=== PATIENT | male | born 1945 | race Two or more races ===

== ENCOUNTER → 2024-03-18 | Outpatient (CLI) | payer MEDICARE, MEDICAID, SELFPAY ==
[2024-03-18 09:29] LABS: Basophils % (Auto) 1 % (0-2.5); Eosinophils # (Auto) 0.2 Thou/mm3 (0.0-0.5); Eosinophils % (Auto) 2 % (0-10); Hematocrit 43.7 % (41.0-53.0); Hemoglobin 15.5 g/dL (13.5-16.0); Immature Granulocytes % (Auto) 0 % (0-0); Immature Granulocytes Auto 0.02 Thou/mm3 (0.00-0.00); Lymphocytes # (Auto) 1.6 Thou/mm3 (1.0-4.8); Lymphocytes % (Auto) 25 % (10-50); Mean Corpuscular HGB Conc 35.5 g/dl (31.0-37.0); Mean Corpuscular Hemoglobin 31.8 pg (25.0-35.0); Mean Corpuscular Volume 90 fL (80-100); Monocytes # (Auto) 0.6 Thou/mm3 (0.0-0.8); Monocytes % (Auto) 10 % (0-12); Neutrophils # (Auto) 3.9 Thou/mm3 (1.8-7.7); Neutrophils % (Auto) 62 % (37-80); Nucleated Red Blood Cell % 0 /100 WBC (0); Platelet Count 241 Thou/mm3 (140-440); RDW Standard Deviation 38.5 fL (35.1-43.9); Red Blood Count 4.88 Miln/mm3 (4.50-5.90); White Blood Count 6.3 Thou/mm3 (3.8-10.6)
[2024-03-18 09:35] LABS: Prostate Specific Antigen 4.57 ng/mL (0-4.00)
[2024-03-18 09:40] LABS: Vitamin D 25 Hydroxy Total 23.5 ng/mL (7.3-40.2)
[2024-03-18 09:47] LABS: Glucose Estimated Average 111 mg/dL (80-131); Hemoglobin A1C 5.5 % Hgb (4.8-6.0)
[2024-03-18 09:49] LABS: Alanine Aminotransferase 32 U/L (10-49); Albumin, Serum 4.7 gm/dL (3.4-4.8); Albumin/Globulin Ratio 1.9 (1.2-2.2); Alkaline Phosphatase 99 U/L (46-116); Anion Gap 6 (7-16); Aspartate Amino Transferase < 10 U/L (0-34); BUN/Creatinine Ratio 18 Ratio (12-20); Bilirubin,Total 0.5 mg/dL (0.3-1.2); Blood Urea Nitrogen 14 mg/dL (9-23); Calcium 9.5 mg/dL (8.3-10.6); Calcium (Corrected) 9.5 mg/dL (8.5-10.1); Carbon Dioxide 29.3 mMol/L (20.0-31.0); Chloride 104 mMol/L (98-107); Cholesterol 193 mg/dL (132-200); Creatinine (Component) 0.8 mg/dL (0.6-1.3); Free T4 (Free Thyroxine) 1.08 ng/dL (0.89-1.76); Globulin 2.5 gm/dL (2.3-3.5); Glucose 99 mg/dL (74-106); HDL Cholesterol 48 mg/dL (40-60); LDL Cholesterol,Calculated 112 mg/dL (0-130); Osmolality,Calculated 278 (275-295); Potassium 3.9 mMol/L (3.4-5.1); Sodium 139 mMol/L (136-145); Thyroid Stimulating Hormone 4.83 uIU/mL (0.55-4.78); Total Protein 7.2 gm/dL (5.7-8.2); Triglycerides 166 mg/dL (30-150); eGFR > 60 See Note
== END | disposition home or self-care (01) ==
LOC: COPL 08:32
PROVIDERS: PCP Physician Assistant; Referring Provider Physician Assistant; Visit Provider Physician Assistant
DX: Z12.89 Encounter for screening for malignant neoplasm of other sites (principal); E78.5 Hyperlipidemia, unspecified
CPT/HCPCS: 36415; 80053; 80061; 82306; 83036; 84153; 84439; 84443; 85025

== ENCOUNTER 2024-04-08 09:47 | Outpatient (RCR) | payer MEDICARE, MEDICAID, SELFPAY ==
--- NOTE | 2024-04-08 10:22 | PT.OIERPT ---
PT OP Initial Eval Patient Information Outpatient Physical Therapy Treatment Date: 04/08/24 Visit Reasons: lower back Medical Diagnosis: M54.3 Treatment Dx #1: Difficulty Walking Start of Care: 04/08/24 Date of Onset: 6 months ago Smoking Status Smoking Status: Never smoker Initial Assessment Subjective: Pt is a 78 y/o male reports of right knee pain down to his foot. Pt denies of back pain or numbness down the leg. Pt's most recent xray showed knee replacement, however, unable to provide exact date of procedure. Pt has limitation with standing, walking, chores, balance, and performing recreational activities. Objective: L/S AROM: all motions are WFL Hip PROM: all motions are WFL except IR Right Knee AROM: all motions are WFL with end range pain into fleixon Right Knee MMTs: grossly 4-/5 RIght Hip MMTs: grossly 3/5 Gait Observation: antalgic gait with decrease stride on the right LE Assessment: Pt came into therapy with ICD-10 of sciatica, however, after completion of physical therapy evaluation. Pt's source of pain was localized to the right knee. Pt was evaluted and d/c from care for sciatica. Pt instructed to follow up with PCP for a new PT order for the knee. Pt gave verbal understanding; thank you for your referrals. [facility] Term and [employer] Goals 1) Eval and D/C 2) Follow up with MD for a new PT order for the right knee Procedure Charges OP PT Eval Mod Complex 30 minutes: Yes
== END 2024-04-25 23:59 | disposition home or self-care (01) ==
LOC: CPTX 09:47
PROVIDERS: PCP Student in an Organized Health Care Education/Training Program; Referring Provider Student in an Organized Health Care Education/Training Program; Visit Provider Student in an Organized Health Care Education/Training Program
DX: M25.561 Pain in right knee (principal); R26.2 Difficulty in walking, not elsewhere classified; M54.30 Sciatica, unspecified side
CPT/HCPCS: 97162

== ENCOUNTER 2024-05-26 14:30 | Outpatient (RCR) | payer MEDICARE, MEDICAID, SELFPAY ==
--- NOTE | 2024-04-30 12:50 | PTNOTE_ITS ---
PT OP Initial Eval Patient Information Outpatient Physical Therapy Treatment Date: 04/30/24 Visit Reasons: Pain in RT knee Medical Diagnosis: Right Knee Pain Treatment Dx #1: Right Knee Pain Start of Care: 04/30/24 Date of Onset: 5 year ago Smoking Status Smoking Status: Never smoker Initial Assessment Subjective: Pt is a 78 y/o male reports of chronic right knee pain (09/04) since his fall ~ 5 years ago. 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 Pt has limitation with walking, standing, chores, balance, squatting, stairs, and performing recreational activities. Objective: Right Knee AROM: -5 deg to 130 deg Right Knee MMTs: grossly 4-/5 Right Hip MMTs: grossly 3+/5 SLS: NT Assessment: Pt demonstrate right knee pain with weakness leading to difficulty with ADLs. Pt will attempt physical therapy if pain persist Pt will be refer back to provider for further consultation. [facility] Term and [facility] Goals 1) Increase right knee MMTs grossly to 4/5 in 6 wks to blayne ble to perform squatting activities 2) Decrease knee pain to 2/10 in 6 wks to be able to perform chores 3) Increase right hip MMTs grossly to 4-/5 in 6 wks to be able to walk more than 30 mins 4) Indep with HEP Treatment Plan 1) Manual Therapy 2) Therapeutic Activities 3) Therapeutic Exercises 4) Modalities (ice, heat) 5) Balance Training 6) Gait Training Frequency and Duration: 2 x wk for 6 wks Certification Dates: 04/30/24 to 07/31/24 Procedure Charges OP PT Eval Mod Complex 30 minutes: Yes
--- NOTE | 2024-05-05 14:05 | PT.ODAYNRPT ---
PT Outpatient Daily Note OP Daily Note Outpatient Physical Therapy Treatment Date: 05/05/24 Visit Reasons: Pain in RT knee Subjective: Pt shared that his knee gives out at times and feels unsteady. Objective: Please see flow sheet for ther ex list. Assessment: Pt tolerated interventions with no complaints. Plan: Assess response to treatment. Length of Time (minutes) of Treatment: 30 Minutes Procedure Charges Therapeutic Exercise 30 minutes: Yes
--- NOTE | 2024-05-07 11:59 | PT.ODAYNRPT ---
PT Outpatient Daily Note OP Daily Note Outpatient Physical Therapy Treatment Date: 05/07/24 Visit Reasons: Pain in RT knee Subjective: No new complaints or concerns. Objective: Please see flow sheet for ther ex list. Assessment: Pt instructed on step up exercise, pt can perform with MEDICAL RECORD CONSULTANT. Plan: Continue with POC. Length of Time (minutes) of Treatment: 30 Minutes Procedure Charges Therapeutic Exercise 30 minutes: Yes
--- NOTE | 2024-05-12 15:20 | PT.ODAYNRPT ---
PT Outpatient Daily Note OP Daily Note Outpatient Physical Therapy Treatment Date: 05/12/24 Visit Reasons: Pain in RT knee Subjective: Pt's knee is hurting more. Pt mentioned it feels stiff and painful. Objective: Please see flow chart for list of ther ex performed Assessment: minimal progress with physical therapy due to pain. Pt instructed to complete a few more sessions of physical therapy to help strengthening the knee prior to returning to PCP. Pt gave verbal understanding Plan: Continue with PT Length of Time (minutes) of Treatment: 30 Minutes Procedure Charges Therapeutic Exercise 30 minutes: Yes
--- NOTE | 2024-05-14 14:40 | PT.ODAYNRPT ---
PT Outpatient Daily Note OP Daily Note Outpatient Physical Therapy Treatment Date: 05/14/24 Visit Reasons: Pain in RT knee Subjective: Pt reports R continues to be painful. Objective: Please see flow sheet for ther ex list. Assessment: Interventions completed with minimal pain, continues to ambulate with antalgic gait. Plan: Continue with POC. Length of Time (minutes) of Treatment: 30 Minutes Procedure Charges Therapeutic Exercise 30 minutes: Yes
--- NOTE | 2024-05-19 13:58 | PT.ODAYNRPT ---
PT Outpatient Daily Note OP Daily Note Outpatient Physical Therapy Treatment Date: 05/19/24 Visit Reasons: Pain in RT knee Subjective: Pt's knee feels better, however, still has intermittent pain with standing or walking. Pt will like to continue physical therapy for a few more weeks. Objective: Please see flow chart for list of ther ex performed Assessment: progressing patient to more standing and closed chain exercises with good tolerance Plan: Continue with PT Length of Time (minutes) of Treatment: 30 Minutes Procedure Charges Therapeutic Exercise 30 minutes: Yes
--- NOTE | 2024-05-21 15:47 | PT.ODAYNRPT ---
PT Outpatient Daily Note OP Daily Note Outpatient Physical Therapy Treatment Date: 05/21/24 Visit Reasons: Pain in RT knee Subjective: Pt reports he continues to have knee pain and feels knee vandana on him. As per pt he has been referred to a specialits for his knee. Objective: Please see flow sheet for ther ex list. Assessment: Pt ambulates with cane, antalgic gait and knee buckled once when ambulating in clinic today. Plan: Continue with pOC. Length of Time (minutes) of Treatment: 30 Minutes Procedure Charges Therapeutic Exercise 30 minutes: Yes
--- NOTE | 2024-05-26 14:05 | PT.ODAYNRPT ---
PT Outpatient Daily Note OP Daily Note Outpatient Physical Therapy Treatment Date: 05/26/24 Visit Reasons: Pain in RT knee Subjective: Pt's right knee pain is better, however, is having back pain leading to difficulty with walking today. Pt wants physical therapy to work on the back. Objective: Please see flow chart for list of ther ex performed Assessment: modified exercises to supine position to off load the back to tolerate knee exercises. Post ice helped with pain and soreness Plan: Continue with PT Length of Time (minutes) of Treatment: 30 Minutes Procedure Charges Therapeutic Exercise 30 minutes: Yes
== END 2024-05-26 23:59 | disposition home or self-care (01) ==
LOC: CPTX 14:30
PROVIDERS: PCP Student in an Organized Health Care Education/Training Program; Referring Provider Student in an Organized Health Care Education/Training Program; Visit Provider Student in an Organized Health Care Education/Training Program
DX: M25.561 Pain in right knee (principal); R53.1 Weakness; G89.29 Other chronic pain
CPT/HCPCS: 97110; 97162

== ENCOUNTER 2024-06-12 09:30 | Outpatient (RCR) | payer MEDICARE, MEDICAID, SELFPAY ==
--- NOTE | 2024-06-02 11:11 | PT.ODAYNRPT ---
PT Outpatient Daily Note OP Daily Note Outpatient Physical Therapy Treatment Date: 06/02/24 Visit Reasons: Pain in RT knee Subjective: Pt's right knee is better and notice less pain. Objective: Please see flow chart for list of ther ex performed Assessment: progressing with knee stability with step up exercises with more eccentric control coming down the step Plan: Continue with PT Length of Time (minutes) of Treatment: 30 Minutes Procedure Charges Therapeutic Exercise 30 minutes: Yes
--- NOTE | 2024-06-04 11:31 | PTNOTE_ITS ---
PT Outpatient Daily Note OP Daily Note Outpatient Physical Therapy Treatment Date: 06/04/24 Visit Reasons: Pain in RT knee Subjective: Pt reports R knee is doing a little better, can go short distance without cane. Objective: Please see flow sheet for ther ex list. Assessment: Interventions given alternating sitting and standing to maximize pt participation. Plan: Continue with poC. Length of Time (minutes) of Treatment: 30 Minutes PIPE SUPERVISOR Service Modifier Method I: Divide the number of min of care provided by the PIPE SUPERVISOR/BIG DATA SOFTWARE ENGINEER by the total min of care provided then multiply by 100. If greater than 11 percent modifier is required. Method II: Divide the total time of care provided to patient by 10 (round to the nearest whole number) and add 1 min. to set the minimum time requirement. If treatment total was 60 min., then 10% of 6 min PT CQ modifier applied: CQ Modifier applied Procedure Charges Therapeutic Exercise 30 minutes: Yes
--- NOTE | 2024-06-10 09:57 | PTNOTE_ITS ---
PT Outpatient Daily Note OP Daily Note Outpatient Physical Therapy Treatment Date: 06/10/24 Visit Reasons: Pain in RT knee Subjective: Pt reports R knee continues to be painful and weak, has episodes where knee vandana. Pt uses cane due to fear of falling. Objective: Please see flow sheet for ther ex list. Assessment: Pt continues to ambulate with antalgic gait, pt high fall risk if ambulating without AD due to R knee buckling. Recommended pt to use cane to reduce fall risk, pt agreed. Plan: Continue with pOC. Length of Time (minutes) of Treatment: 30 Minutes NAILING MACHINE OPERATOR Service Modifier Method I: Divide the number of min of care provided by the NAILING MACHINE OPERATOR/INK PRINTER by the total min of care provided then multiply by 100. If greater than 11 percent modifier is required. Method II: Divide the total time of care provided to patient by 10 (round to the nearest whole number) and add 1 min. to set the minimum time requirement. If treatment total was 60 min., then 10% of 6 min PT CQ modifier applied: CQ Modifier applied Procedure Charges Therapeutic Exercise 30 minutes: Yes
--- NOTE | 2024-06-12 10:37 | PT.ODAYNRPT ---
PT Outpatient Daily Note OP Daily Note Outpatient Physical Therapy Treatment Date: 06/12/24 Visit Reasons: Pain in RT knee Subjective: Pt reports r knee is doing ok today, did not bring cane to clinic. Pt and pt mentioned they think he might have a follow up appointment with doctor soon. Objective: Please see flow sheet for ther ex list. Assessment: Pt presents today with decrease c/o pain. Pt usually uses SPC for ambulation due to R knee buckling and unsteady gait. Pt can ambulate but need cane for community distance due to increase pain and knee buckling with prolonged ambulation and prolonged standing. Plan: Pt to follow up with referring doctor for further instructions. Length of Time (minutes) of Treatment: 30 Minutes Procedure Charges Therapeutic Exercise 30 minutes: Yes
--- NOTE | 2024-06-18 13:56 | PT.ODS1RPT ---
PT OP Progress/Discharge Note Date of Service: 06/18/24 Progress Note/DC Note Progress Note/Discharge Note: DC Note Patient Information Visit Reasons: Pain in RT knee Service Discharge Date: 06/18/24 Status Assessment: Pt has been seen for 12 visits (eval + 11 visits). Pt has been contact regarding follow up appts without success. At this time Pt will be d/c from care. Pt did not meet set goals in therapy; thank you for your referrals
== END 2024-06-25 23:59 | disposition home or self-care (01) ==
LOC: CPTX 09:30
PROVIDERS: PCP Student in an Organized Health Care Education/Training Program; Referring Provider Student in an Organized Health Care Education/Training Program; Visit Provider Student in an Organized Health Care Education/Training Program
DX: M25.561 Pain in right knee (principal); R26.2 Difficulty in walking, not elsewhere classified; R53.1 Weakness; R26.89 Other abnormalities of gait and mobility; G89.29 Other chronic pain
CPT/HCPCS: 97110

== ENCOUNTER 2024-07-17 13:09 | Inpatient (IN) | payer MEDICARE, MEDICAID, SELFPAY ==
[2024-07-17] VITALS (13 sets, daily range): BP systolic 95–119; BP diastolic 60–79; PULSE 80–114; RESP 16–25; TEMP 36.4–37.5; O2SAT 96–100; BMI 30.2
--- NOTE | 2024-07-17 13:30 | PD.EDRME ---
Rapid Medical Screening Exam RME Arrival date/time: 07/17/24 13:09 79-year-old male with a history of iron deficiency anemia presents to the emergency room with a chief complaint of weakness and fatigue. Patient was told by his primary care provider to come to the emergency room due to a low hemoglobin level. I have greeted and performed a focused initial assessment of this patient. A comprehensive ED assessment and evaluation of the patient, analysis of all test results, and completion of the medical decision making process will be conducted by additional ED providers. Chief Complaint: Recheck/Abnormal Lab/Rx Time Seen by Provider: 07/17/24 13:13 Vital signs: Vital Signs Temperature 99.5 F 07/17/24 13:21 Pulse Rate 114 H 07/17/24 13:21 Respiratory Rate 18 07/17/24 13:21 Blood Pressure 100/66 07/17/24 13:21 Pulse Oximetry (%) 97 07/17/24 13:21 Oxygen Delivery Method Room Air 07/17/24 13:21 Vital signs reviewed by provider: Yes
[2024-07-17 14:02] LABS: Basophils # (Auto) 0.1 Thou/mm3 (0.0-0.2); Basophils % (Auto) 0 % (0-2.5); Eosinophils % (Auto) 0 % (0-10); Hematocrit 23.1 % (41.0-53.0); Immature Granulocytes % (Auto) 1 % (0-0); Immature Granulocytes Auto 0.08 Thou/mm3 (0.00-0.00); Lymphocytes # (Auto) 1.6 Thou/mm3 (1.0-4.8); Lymphocytes % (Auto) 13 % (10-50); Mean Corpuscular HGB Conc 32.9 g/dl (31.0-37.0); Mean Corpuscular Hemoglobin 28.5 pg (25.0-35.0); Mean Corpuscular Volume 87 fL (80-100); Monocytes # (Auto) 0.9 Thou/mm3 (0.0-0.8); Monocytes % (Auto) 7 % (0-12); Neutrophils # (Auto) 9.9 Thou/mm3 (1.8-7.7); Neutrophils % (Auto) 79 % (37-80); Nucleated Red Blood Cell # 0.03 Thou/mm3 (0.00-0.00); Nucleated Red Blood Cell % 0 /100 WBC (0); Platelet Count 283 Thou/mm3 (140-440); RDW Standard Deviation 56.7 fL (35.1-43.9); Red Blood Count 2.67 Miln/mm3 (4.50-5.90); White Blood Count 12.6 Thou/mm3 (3.8-10.6)
[2024-07-17 14:08] LABS: Hemoglobin 7.6 g/dL (13.5-16.0)
[2024-07-17 14:20] LABS: Alanine Aminotransferase 22 U/L (10-49); Albumin, Serum 3.6 gm/dL (3.4-4.8); Albumin/Globulin Ratio 1.6 (1.2-2.2); Alkaline Phosphatase 76 U/L (46-116); Anion Gap 13 (7-16); Aspartate Amino Transferase 23 U/L (0-34); BUN/Creatinine Ratio 54 Ratio (12-20); Bilirubin,Total 0.3 mg/dL (0.3-1.2); Blood Urea Nitrogen 49 mg/dL (9-23); Calcium 8.5 mg/dL (8.3-10.6); Calcium (Corrected) 8.8 mg/dL (8.5-10.1); Carbon Dioxide 21.9 mMol/L (20.0-31.0); Chloride 103 mMol/L (98-107); Creatinine (Component) 0.9 mg/dL (0.6-1.3); Estimated Creatinine Clearance 54.7 mL/min (>60); Globulin 2.2 gm/dL (2.3-3.5); Glucose 149 mg/dL (74-106); Osmolality,Calculated 291 (275-295); Sodium 138 mMol/L (136-145); Total Protein 5.8 gm/dL (5.7-8.2); eGFR > 60 See Note
[2024-07-17 14:42] LABS: INR 1.1 (0.9-1.3); Partial Thromboplastin Time 22.5 Seconds (22.0-36.0); Prothrombin Time 11.6 Seconds (9.0-12.2)
--- NOTE | 2024-07-17 16:38 | PD.EDRECHK ---
ED Recheck Abnl Lab Rx-RME/HPI General Chief Complaint: Recheck/Abnormal Lab/Rx Stated Complaint: LOW BLOOD LEVELS SENT BY PMD Time Seen by Provider: 07/17/24 13:13 Arrival date/time: 07/17/24 13:09 RME / HPI RME / HPI narrative: 79-year-old male with a history of iron deficiency anemia presents to the emergency room with a chief complaint of weakness and fatigue. Patient was told by his primary care provider to come to the emergency room due to a low hemoglobin level. Patient was noted to have dark tarry stool for the last 24 hours. Denies any abdominal pain. Denies any vomiting blood. Patient is not alcoholic. Patient is not taking any blood thinner or aspirin Related Data Previous Rx's ?Medication ?Instructions ?Recorded pantoprazole 40 mg tablet,delayed 40 mg PO BID #60 tabs 05/05/22 release Allergies Allergy/AdvReac Type Severity Reaction Status Date / Time naproxen Allergy Severe Hives Verified 07/17/24 18:09 Review of Systems Review of Systems Narrative Review of Systems: Review of system reviewed and within normal limits except mentioned in HPI ED Exam Narrative Physical exam: VITAL SIGNS: Reviewed. GENERAL APPEARANCE: Alert and interactive, follows commands, no acute distress, HEAD AND FACE: Non-traumatic. ENT: PERRL, pale conjunctiva, eyelid no trauma, Mucous membrane moist. NECK: Supple, nontender, no nuchal rigidity. CHEST: No tenderness, no crepitus, no paradoxical movement, no retractions. LUNGS: Clear, well ventilated, symmetric, no rales, no wheezing, no ronchi, no stridor, good breath sounds bilaterally. HEART: Regular rate, regular rhythm, no murmur, no gallops. ABDOMEN: Soft, positive bowel sounds, nondistended, no guarding, nontender, no rebound, no masses, RECTAL: Deferred. GENITAL: Deferred. NEUROLOGICAL: Gross motor function intact sensory function intact, Appropriate for age. MUSCULOSKELETAL: low back nontender, full range of motion. EXTREMITIES: Nontender, full range of motion. SKIN: Color pale, dry, no rash, no lacerations, no abrasions, no contusions. LYMPHATICS: Deferred. Course Quality Measures none Orders Category Date Time Status COVID-19 Screening Questionnaire NOW Care 07/17/24 17:07 Active Decision to Admit X1 Care 07/17/24 17:07 Completed Insert IV NOW Care 07/17/24 17:28 Active Occult Blood,Stool (Nursing) ONCE Care 07/17/24 16:40 Active Transfuse,blood/blood products ONCE Care 07/17/24 15:37 Active Consult to Gastroenterology Stat Cons 07/17/24 17:04 Ordered CBC Stat Lab 07/17/24 13:44 Completed CMP [Comprehensive Metabolic Panel] Stat Lab 07/17/24 13:44 Completed PT [Prothrombin Time with INR] Stat Lab 07/17/24 13:44 Completed PTT [Partial Thromboplastin Time] Stat Lab 07/17/24 13:44 Completed Type and Screen Stat Lab 07/17/24 13:44 Results prbc [Red Blood Cells] Stat Lab 07/17/24 13:44 Results Pantoprazole Inj [Protonix Inj] Med 07/17/24 16:38 Discontinued 80 mg IVP X1 ONE Vital Signs Vital signs: Vital Signs Temperature 99.5 F 07/17/24 13:21 Pulse Rate 114 H 07/17/24 13:21 Respiratory Rate 18 07/17/24 13:21 Blood Pressure 100/66 07/17/24 13:21 Pulse Oximetry (%) 97 07/17/24 13:21 Oxygen Delivery Method Room Air 07/17/24 13:21 Recheck / Abnormal Lab / Rx MDM Narrative MDM Narrative:: 79-year-old male with a history of iron deficiency anemia presents to the emergency room with a chief complaint of weakness and fatigue. Patient was told by his primary care provider to come to the emergency room due to a low hemoglobin level. Patient was noted to have dark tarry stool for the last 24 hours. Denies any abdominal pain. Denies any vomiting blood. Patient is not alcoholic. Patient is not taking any blood thinner or aspirin Rectal exam was done by me and black tarry stool noted. Tested positive strongly for occult blood Patient's hemoglobin was noted to be 7.6 hematocrit of 23.1. Patient received 2 units of packed RBC. Patient was also given IV Protonix. Spoke with Dr. Norwood, GI specialist on-call, thank you Dr. 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 How is presenting disease/condition affected by chronic disease/condition?: exacerbated by Evaluation data The following diagnostics were reviewed and interpreted by me:: lab results Lab and/or radiology exams considered but not ordered:: None Interpretation Summary: See results MDM Medications / Prescriptions Medications or Prescriptions considered but not ordered:: None Medication administrations:: Medication Administration History Acetaminophen (Acetaminophen 325 Mg Tablet) 650 mg PO Q6H PRN PRN Reason: Fever >101.5 Stop: 08/16/24 17:40 Acetaminophen (Acetaminophen 500 Mg Tablet) 1,000 mg PO Q6H PRN PRN Reason: PAIN SCALE 1-3 (mild Stop: 08/16/24 17:40 Docusate Sodium (Docusate Sod 100 Mg Capsule) 100 mg PO QDAY [facility]; Protocol Stop: 08/17/24 08:59 Sodium Chloride (Ns) 1,000 mls @ 75 mls/hr IV .[id number] [facility] Stop: 07/18/24 07:16 Last Admin: 07/17/24 18:44 Dose: 75 mls/hr Documented By: ANA LAURA Ondansetron HCl (Ondansetron Inj 2 Mg/Ml Inj 2 Ml) 4 mg IVP Q6H PRN; Protocol PRN Reason: NAUSEA OR VOMITING Stop: 08/16/24 17:40 Pantoprazole Sodium (Pantoprazole Inj 40 Mg Vial) 40 mg IVP BID [facility] Stop: 08/16/24 20:59 Sennosides (Senna Tablet) 1 tab PO QDAY [facility]; Protocol Stop: 08/17/24 08:59 Discontinued Medications Sodium Chloride (Ns) 1,000 mls @ 999 mls/hr IV .Q1H1M ONE Stop: 07/17/24 18:47 Last Admin: 07/17/24 18:43 Dose: 999 mls/hr Documented By: ANA LAURA Infusion: 07/17/24 18:43 Dose: Infused Documented By: ANA LAURA Admin: 07/17/24 18:02 Dose: 999 mls/hr Documented By: ANA LAURA Pantoprazole Sodium (Pantoprazole Inj 40 Mg Vial) 80 mg IVP X1 ONE Stop: 07/17/24 16:39 Last Admin: 07/17/24 17:39 Dose: 80 mg Documented By: ANA LAURA Pantoprazole Sodium (Pantoprazole 40 Mg Tablet) 40 mg PO Q12HR [facility] Stop: 08/16/24 20:59 2 units of packed RBC, IV Protonix Consultations Consultation(s) initiated? (list below): Yes Consultation #1 (Physician, Specialty, Details): Dr. Norwood Diagnosis Recheck Differential Diagnosis: other (Anemia, upper GI bleed iron deficiency anemia anemia of chronic blood loss) Most likely diagnosis given after review of the tests above:: Upper GI bleed anemia Admission Indicated Admission indicated?: indicated Admission Request Was there a request for admission?: Yes Admission Attestation Admission request attestation: Discussed case with [Dr. Mcintyre] from Hospitalist service regarding admission. Discussed patients ED course, exam findings, labs, and radiology results. The Hospitalist [agrees to accept the patient for admission. Disposition Plan Disposition Plan: Admit Discharge Plan Plan Patient Disposition: Admit Acute Care w/in Hospital Discharge Disposition comment: Stable Problem List Clinical Impression: Acute GI bleeding, Anemia
[2024-07-17] MEDS: PANTOPRAZOLE INJ 40 MG VIAL 80 MG IVP (17:39)
--- NOTE | 2024-07-17 17:48 | ESHP_ITS ---
<Statement entered by Brian Garcia MD - 07/27/24 07:23> I reviewed above note and agree with findings and plans. I have also personally examined the patient with medicine team and went over assessment and plan with medical team including internal salesperson and resident physician. Documentation for date of: 07/17/24 HPI History of Present Illness Chief complaint: dizziness, dark stools History of present illness: 79-year-old male with past medical history of hyperlipidemia, arthritis, history of gastric ulcers, history of chronic anemia who presented to the ED from his primary care physician's office due to low hemoglobin. Apparently the patient has been feeling weak dizzy and nauseous for about 2 days, patient also notices stool has become dark and tarry and is currently not on any type of iron supplementation or taking Pepto-Bismol. At the primary care physician's office hemoglobin was about a 9.6 on arrival to the ER hemoglobin shows 7.6. He also not noted feeling short of breath and unable to walk. At baseline patient walks using a cane and is completely independent to perform his ADLs. Patient denies any fever, chills, chest pain, abdominal pain, vomiting, recent travel, sick contacts, urinary or bowel changes. ED course: ED vitals: BP 100/66, HR 114, RR 18, temp 99.5, O2 sat 97% on room air ED labs: Leukocytosis, hemoglobin 7.6, BUN 49, glucose 149. In the ED patient received 80 mg pantoprazole, and 2 units of PRBCs ordered to transfuse. PMHx: As above SxHx: Bilateral knee replacements, appendectomy, some type of throat surgery Social Hx: Denies cigarette use, denies illicit substances including THC, used to be a heavy drinker but quit about 6 years ago. FH X: Unknown Review of Systems Review of Systems Systems Reviewed: All systems reviewed, normal except as documented Narrative Review of Systems: All 12 systems reviewed and found normal unless otherwise specified in the HPI. Exam Vital Signs Temp Pulse Resp BP Pulse Ox O2 Del Method 99.1 F 102 H 16 102/79 99 Room Air 07/17/24 17:45 07/17/24 17:45 07/17/24 17:45 07/17/24 17:45 07/17/24 17:45 07/17/24 17:45 Narrative Exam Physical Exam GENERAL: NAD, AAOx3, slight jaundice HEENT: Dry mucosa. Eyes open, symmetrical, & clear CARDIO: Heart RRR, no obvious murmurs PULM: No noted coughing/dyspnea CTA B/L, no R/W/R GI: Abdomen soft, nondistended, no pain on palpation. BSx4 SKIN/MSK/EXT: No wounds/rashes/edema/amputations, no pain on palpation. Pedal pulses present B/L NEURO: AAOx3, no focal neuro deficits, able to move all 4 extremities Results: Labs 07/17/24 13:44 07/17/24 13:44 Labs: Short CBC 07/17/24 Range/Units 13:44 WBC 12.6 H (3.8-10.6) Thou/mm3 Hgb 7.6 L (13.5-16.0) g/dL Hct 23.1 L (41.0-53.0) % Plt Count 283 (140-440) Thou/mm3 BMP 07/17/24 13:44 Sodium 138 Potassium 4.0 Chloride 103 Carbon Dioxide 21.9 BUN 49 H Creatinine 0.9 Glucose 149 H Calcium 8.5 Liver Function 07/17/24 Range/Units 13:44 Total Bilirubin 0.3 (0.3-1.2) mg/dL AST 23 (0-34) U/L ALT 22 (10-49) U/L Alkaline Phosphatase 76 (46-116) U/L Albumin 3.6 (3.4-4.8) gm/dL Quality Measures Quality Measures none Advance care planning discussed with:: patient Medications Home Medications and Allergies Allergies Allergy/AdvReac Type Severity Reaction Status Date / Time naproxen Allergy Severe Hives Verified 07/17/24 18:09 Visit Medications Acetaminophen (Acetaminophen 325 Mg Tablet) 650 mg PO Q6H PRN PRN Reason: Fever >101.5 Stop: 08/16/24 17:40 Acetaminophen (Acetaminophen 325 Mg Tablet) 1,000 mg PO Q6H PRN PRN Reason: PAIN SCALE 1-3 (mild Stop: 08/16/24 17:40 Docusate Sodium (Docusate Sod 100 Mg Capsule) 100 mg PO QDAY DALJIT; Protocol Stop: 08/17/24 08:59 Ondansetron HCl (Ondansetron Inj 2 Mg/Ml Inj 2 Ml) 4 mg IVP Q6H PRN; Protocol PRN Reason: NAUSEA OR VOMITING Stop: 08/16/24 17:40 Pantoprazole Sodium (Pantoprazole 40 Mg Tablet) 40 mg PO Q12HR DALJIT Stop: 08/16/24 20:59 Sennosides (Senna Tablet) 1 tab PO QDAY DALJIT; Protocol Stop: 08/17/24 08:59 Discontinued Medications Pantoprazole Sodium (Pantoprazole Inj 40 Mg Vial) 80 mg IVP X1 ONE Stop: 07/17/24 16:39 Last Admin: 07/17/24 17:39 Dose: 80 mg Assessment & Plan Plan 79-year-old male with past medical history of hyperlipidemia, arthritis, gastric ulcers, chronic anemia who presented to the ED due to weakness, lightheadedness, shortness of breath, dark tarry stools. Patient will be admitted for GI bleed workup. #Upper GI bleed #Hx of gastric and esophageal ulcers #Hx of anemia presented to the ED from his primary care physician's office due to low hemoglobin. Apparently the patient has been feeling weak dizzy and nauseous for about 2 days, patient also notices stool has become dark and tarry and is currently not on any type of iron supplementation or taking Pepto-Bismol. At the primary care physician's office hemoglobin was about a 9.6 on arrival to the ER hemoglobin shows 7.6. Patient also has hx of prior gastric ulcers >3years ago ? 1 L NS bolus ordered ? IVF's at 75 cc/h X1 bag ? Protonix 40 twice daily ? Transfuse 2 PRBCs ? ordered 2 prbcs ? Monitor H&H every 6 ? GI consulted, appreciate recommendations ? N.p.o. for possible GI intervention #Hyperlipidemia not on any meds at this time - pending med rec Disposition: telemetry, pending GI work up Fluids: NS Feeding: NPO for possible procedure Thrombo prophylaxis: SCDs Gastric Ulcer prophylaxis: Pantoprazole CODE STATUS: Full code Case discussed with my attending Dr. Radha Rose MD PGY-1
[2024-07-17] MEDS: SODIUM CHLORIDE 0.9% 1000 ML 1,000 ML 999 ML IV ×2 (18:02→18:43)
[2024-07-17] MEDS: SODIUM CHLORIDE 0.9% 1000 ML 1,000 ML 75 ML IV (18:44)
--- NOTE | 2024-07-17 19:00 | PC.NURSE ---
Tong Carrier assumes care of patient at this time. Pt tolerating blood transfusion well with no s/s reaction noted at 150ml/hr. Pt is A/O x 4 with no c/o pain
--- NOTE | 2024-07-17 21:00 | PC.NURSE ---
Pt continues to rest with no c/o pain or acute distress reported, bed remains in low position and locked with side rails up x 2, call light in reach of patient
--- NOTE | 2024-07-17 21:20 | PC.NURSE ---
Report given to floor nurse JAHAIRA Lau
--- NOTE | 2024-07-17 22:21 | PD.IMCONS ---
HPI Data of Consult Requesting Physician: Brian Garcia MD Primary Care Provider: Irasema Olmstead PA-C Consult Narrative Reason for consult: Dark melanotic stools History of present illness: 79 years old male presented to the hospital with dark melanotic stools weakness and fatigue On 03/18/2024 his hemoglobin hematocrit 15.5 and 43.7 Today in the emergency room 7.6 and 23.1 with a platelet count of 283,000 cc:: cc: Brian Garcia MD Review of Systems Review of Systems Systems Reviewed: All systems reviewed, normal except as documented Past Medical History Surgical History OTHER SURGICAL HX: As in the history of present illness Meds Home Medications and Allergies Home Medications ?Medication ?Instructions ?Recorded ?Confirmed ?Type diclofenac sodium 1 % topical gel 2 g topical QDAY PRN pain (scale 07/17/24 07/17/24 History score 1-3) Allergies Allergy/AdvReac Type Severity Reaction Status Date / Time naproxen Allergy Severe Hives Verified 07/17/24 18:09 Exam Vital Signs Temp Pulse Resp BP Pulse Ox O2 Del Method 97.6 F 83 20 98/68 96 Room Air 07/17/24 22:15 07/17/24 22:15 07/17/24 22:00 07/17/24 22:15 07/17/24 22:15 07/17/24 22:00 Constitutional Comments: Alert oriented Routine Respiratory Exam Comments: Normal to auscultation Routine Abdominal Exam Comments: Soft nontender Results Labs 07/20/24 05:25 07/20/24 05:25 Labs: Short CBC 07/17/24 Range/Units 13:44 WBC 12.6 H (3.8-10.6) Thou/mm3 Hgb 7.6 L (13.5-16.0) g/dL Hct 23.1 L (41.0-53.0) % Plt Count 283 (140-440) Thou/mm3 BMP 07/17/24 13:44 Sodium 138 Potassium 4.0 Chloride 103 Carbon Dioxide 21.9 BUN 49 H Creatinine 0.9 Glucose 149 H Calcium 8.5 Liver Function 07/17/24 Range/Units 13:44 Total Bilirubin 0.3 (0.3-1.2) mg/dL AST 23 (0-34) U/L ALT 22 (10-49) U/L Alkaline Phosphatase 76 (46-116) U/L Albumin 3.6 (3.4-4.8) gm/dL Assessment and Plan Additional Assessment & Plan Additional Plan: Melena Acute posthemorrhagic anemia Plan Clear liquid diet till midnight tonight then n.p.o. Consent obtained for fiberoptic esophagogastroduodenoscopy with possible biopsy possible therapeutic intervention under intravenous moderate sedation scheduled for tomorrow IV Protonix Serial CBC Transfuse PRBC if the hemoglobin drops below 7 g Thank you very much for the opportunity to participate in the care of this patient
[2024-07-17] MEDS: PANTOPRAZOLE INJ 40 MG VIAL IVP (22:37)
[2024-07-18] VITALS (20 sets, daily range): BP systolic 93–128; BP diastolic 58–79; PULSE 52–89; RESP 9–97; TEMP 36.2–37.3; O2SAT 95–100; BMI 26.6
[2024-07-18 06:17] LABS: Basophils # (Auto) 0.1 Thou/mm3 (0.0-0.2); Basophils % (Auto) 1 % (0-2.5); Eosinophils # (Auto) 0.2 Thou/mm3 (0.0-0.5); Eosinophils % (Auto) 2 % (0-10); Hematocrit 25.6 % (41.0-53.0); Immature Granulocytes % (Auto) 1 % (0-0); Immature Granulocytes Auto 0.06 Thou/mm3 (0.00-0.00); Lymphocytes # (Auto) 2.1 Thou/mm3 (1.0-4.8); Lymphocytes % (Auto) 20 % (10-50); Mean Corpuscular HGB Conc 33.2 g/dl (31.0-37.0); Mean Corpuscular Hemoglobin 29.2 pg (25.0-35.0); Mean Corpuscular Volume 88 fL (80-100); Monocytes # (Auto) 0.9 Thou/mm3 (0.0-0.8); Monocytes % (Auto) 9 % (0-12); Neutrophils % (Auto) 68 % (37-80); Nucleated Red Blood Cell # 0.02 Thou/mm3 (0.00-0.00); Nucleated Red Blood Cell % 0 /100 WBC (0); Platelet Count 198 Thou/mm3 (140-440); RDW Standard Deviation 56.1 fL (35.1-43.9); Red Blood Count 2.91 Miln/mm3 (4.50-5.90); White Blood Count 10.2 Thou/mm3 (3.8-10.6)
[2024-07-18 06:26] LABS: Hemoglobin 8.5 g/dL (13.5-16.0)
[2024-07-18 06:46] LABS: Alanine Aminotransferase 15 U/L (10-49); Albumin, Serum 3.1 gm/dL (3.4-4.8); Albumin/Globulin Ratio 1.7 (1.2-2.2); Alkaline Phosphatase 61 U/L (46-116); Anion Gap 9 (7-16); Aspartate Amino Transferase 18 U/L (0-34); BUN/Creatinine Ratio 44 Ratio (12-20); Bilirubin,Total 0.4 mg/dL (0.3-1.2); Blood Urea Nitrogen 31 mg/dL (9-23); Calcium 7.5 mg/dL (8.3-10.6); Calcium (Corrected) 8.2 mg/dL (8.5-10.1); Carbon Dioxide 23.5 mMol/L (20.0-31.0); Chloride 112 mMol/L (98-107); Creatinine (Component) 0.7 mg/dL (0.6-1.3); Estimated Creatinine Clearance 66.3 mL/min (>60); Globulin 1.8 gm/dL (2.3-3.5); Glucose 100 mg/dL (74-106); Magnesium 1.9 mg/dL (1.6-2.6); Osmolality,Calculated 293 (275-295); Phosphorous 2.3 mg/dL (2.4-5.1); Potassium 3.7 mMol/L (3.4-5.1); Sodium 144 mMol/L (136-145); Total Protein 4.9 gm/dL (5.7-8.2); eGFR > 60 See Note
[2024-07-18] MEDS: SENNA TABLET 1 TAB PO (08:49)
[2024-07-18] MEDS: PANTOPRAZOLE INJ 40 MG VIAL IVP ×2 (08:49→20:41)
[2024-07-18] MEDS: DOCUSATE SOD 100 MG CAPSULE PO (08:49)
--- NOTE | 2024-07-18 10:33 | PC.SS ---
Initial assessment: patient is a 79 year old male admitted for dark tarry stools. Patient is Jordanian speaking. Patient lives at home with spouse and family. Patient confirmed demographic information. Patient requires some assistance with ADL's. Patient denies use of home DME. Patient PCP is Irasema Olmstead. Patient plans to return home upon discharge, family able to transport the patient home. Family and patient requesting a rollator walker, no preferred DME vendor. Patient's son Kalin To and patient daughter in law Debora contact number is for reference. D/c plan: Home Next of kin: daughterLeda
--- NOTE | 2024-07-18 12:29 | PC.SS ---
Patient is requesting a rollator walker for home use. Walkers The diagnosis creates mobility limitation that significantly impairs ability to participate in the patients activities of daily living either in their entirety, or in a reasonable time frame. Also the patient is able to safely use the walker and the patient?s mobility is sufficiently resolved with the use of the walker and cane has been ruled out.
--- NOTE | 2024-07-18 13:47 | ESPR_ITS ---
Documentation for date of: 07/18/24 Subjective Subjective Interval history: Patient seen today at the bedside found awake, alert, orientedx3. No overnight events reported. States lightheadedness has improved as well as dizziness. Vitals and labs reviewed. Hemoglobin still low will transfuse 1 PRBC. Patient is pending EGD with GI specialist. Exam Vital Signs Temp Pulse Resp BP Pulse Ox O2 Del Method 97.9 F 78 18 93/64 95 Room Air 07/18/24 12:00 07/18/24 12:00 07/18/24 12:00 07/18/24 12:00 07/18/24 12:00 07/18/24 12:00 Narrative Exam Physical Exam GENERAL: NAD, AAOx3, slight jaundice HEENT: Dry mucosa. Eyes open, symmetrical, & clear CARDIO: Heart RRR, no obvious murmurs PULM: No noted coughing/dyspnea CTA B/L, no R/W/R GI: Abdomen soft, nondistended, no pain on palpation. BSx4 SKIN/MSK/EXT: No wounds/rashes/edema/amputations, no pain on palpation. Pedal pulses present B/L NEURO: AAOx3, no focal neuro deficits, able to move all 4 extremities Objective Labs 07/19/24 05:10 07/19/24 05:10 Labs: Laboratory Results - last 24 hr 07/17/24 07/18/24 13:44 05:20 WBC 12.6 H 10.2 RBC 2.67 L 2.91 L Hgb 7.6 L 8.5 L Hct 23.1 L 25.6 L MCV 87 88 MCH 28.5 29.2 MCHC 32.9 33.2 RDW Std Deviation 56.7 H 56.1 H Plt Count 283 198 D Neut % (Auto) 79 68 Lymph % (Auto) 13 20 [place] % (Auto) 7 9 Eos % (Auto) 0 2 Baso % (Auto) 0 1 Neut # (Auto) 9.9 H 7.0 Lymph # (Auto) 1.6 2.1 [place] # (Auto) 0.9 H 0.9 H Eos # (Auto) 0.0 0.2 Baso # (Auto) 0.1 0.1 Immature Gran # (Auto) 0.08 H 0.06 H Absolute Nucleated RBC 0.03 H 0.02 H Immature Gran % 1 H 1 H Nucleated RBC % 0 0 PT 11.6 INR 1.1 APTT 22.5 Sodium 138 144 Potassium 4.0 3.7 Chloride 103 112 H Carbon Dioxide 21.9 23.5 Anion Gap 13 9 BUN 49 H 31 H Creatinine 0.9 0.7 Estim Creat Clear Calc 54.7 L 66.3 eGFR > 60 > 60 BUN/Creatinine Ratio 54 H 44 H Glucose 149 H 100 Calculated Osmolality 291 293 Calcium 8.5 7.5 L Corrected Calcium 8.8 8.2 L Phosphorus 2.3 L Magnesium 1.9 Total Bilirubin 0.3 0.4 AST 23 18 ALT 22 15 Alkaline Phosphatase 76 61 Total Protein 5.8 4.9 L Albumin 3.6 3.1 L D Globulin 2.2 L 1.8 L Albumin/Globulin Ratio 1.6 1.7 Blood Type A Positive Antibody Screen NEGATIVE Crossmatch See Detail Blood Bank Wristband ID Yes Quality Measures Quality Measures none Advance care planning discussed with:: patient Assessment & Plan Assessment Current Active Medications: Generic Name Dose Route Start Last Admin Trade Name Freq PRN Reason Stop Dose Admin Acetaminophen 650 mg 07/17/24 17:41 Acetaminophen 325 Mg Tablet PO 08/16/24 17:40 Q6H PRN Fever >101.5 Acetaminophen 1,000 mg 07/17/24 17:41 Acetaminophen 500 Mg Tablet PO 08/16/24 17:40 Q6H PRN PAIN SCALE 1-3 (mild Docusate Sodium 100 mg 07/18/24 09:00 07/18/24 08:49 Docusate Sod 100 Mg Capsule PO 08/17/24 08:59 100 mg QDAY DALJIT Administration Protocol Ondansetron HCl 4 mg 07/17/24 17:41 Ondansetron Inj 2 Mg/Ml Inj 2 Ml IVP 08/16/24 17:40 Q6H PRN NAUSEA OR VOMITING Protocol Pantoprazole Sodium 40 mg 07/17/24 21:00 07/18/24 08:49 Pantoprazole Inj 40 Mg Vial IVP 08/16/24 20:59 40 mg BID DALJIT Administration Sennosides 1 tab 07/18/24 09:00 07/18/24 08:49 Senna Tablet PO 08/17/24 08:59 1 tab QDAY DALJIT Administration Protocol Plan 79-year-old male with past medical history of hyperlipidemia, arthritis, gastric ulcers, chronic anemia who presented to the ED due to weakness, lightheadedness, shortness of breath, dark tarry stools. Patient will be admitted for GI bleed workup. #Upper GI bleed #Hx of gastric and esophageal ulcers #Hx of anemia presented to the ED from his primary care physician's office due to low hemoglobin. Apparently the patient has been feeling weak dizzy and nauseous for about 2 days, patient also notices stool has become dark and tarry and is currently not on any type of iron supplementation or taking Pepto-Bismol. At the primary care physician's office hemoglobin was about a 9.6 on arrival to the ER hemoglobin shows 7.6. Patient also has hx of prior gastric ulcers >3years ago 2pRBCs transfused ? Protonix 40 twice daily ? pending EGD ? Transfuse 1 PRBCs ? Monitor H&H ? GI consulted, appreciate recommendations ? N.p.o. for possible GI intervention #Hyperlipidemia not on any meds at this time - pending med rec Disposition: telemetry, pending GI work up Fluids: NS Feeding: NPO for possible procedure Thrombo prophylaxis: SCDs Gastric Ulcer prophylaxis: Pantoprazole CODE STATUS: Full code Case discussed with my attending Dr. Ida Rose MD PGY-1 Attending Provider Attestation/Addendum I, Valerie Prieto, , attest that I was physically present for the salvador portions of the service and evaluated the patient with the resident and I reviewed and discussed the case with the resident and agree with the resident's findings and plans of care as documented above Patient seen and evaluated this AM. and son are at bedside. Patient states he is feeling better today and denies any further episodes of lightheadedness or shortness of breath. Patient does appear pale. He denies taking any iron supplements or pepto bismol at home. He also denies any fevers, chills, nausea, vomiting or abdominal pain. He states he has not had any BMs here in the hospital. Patient is scheduled for endoscopy this afternoon. He received 2 units of PRBCs overnight with only a 0.9 increase in H/H. Will transfuse another unit of pRBCs due to concern for active bleeding and BP remains low-normal. Will continue to monitor volume status closely due to transfusions. Lungs are otherwise clear to auscultation bilaterally. No peripheral edema noted
--- NOTE | 2024-07-18 14:31 | PC.SS ---
Addendum entered by BERNARDINO Mcknight 07/18/24 16:25: Notified patient's daughter Leda via phone call that the DME was delivered as the patient is out of room for a procedure. Addendum entered by BERNARDINO Mcknight 07/18/24 16:23: DME delivered at bedside by [facility] staff. Addendum entered by BERNARDINO Mcknight 07/18/24 14:42: Rounding note: EGD pending. Original Note: DME inquiry for rollator walker sent via [employer]. Pending response.
--- NOTE | 2024-07-18 16:45 | SUR.PHASEI ---
1645: received pt from OR via [employer]. received report from JAHAIRA Sheth. pt sleepy but arousable when called his name. no s/s of resp. distress or discomfort. no s/s pain or discomfort.
--- NOTE | 2024-07-18 17:06 | SUR.PHASEI ---
1706: given report to JAHAIRA Raphael.
--- NOTE | 2024-07-18 17:15 | SUR.PHASEI ---
1715: pt tgransfer back to room 268. pt alert and oriented. no s/s of resp. distress or discomfort. no s/s pian or discomfort.
[2024-07-18] MEDS: NA SU/NAHCO3/KC/PEG (Golytely) 4,000 ML BTL 4000 ML PO (18:01)
[2024-07-19] VITALS (21 sets, daily range): BP systolic 86–120; BP diastolic 55–83; PULSE 58–88; RESP 12–98; TEMP 36.5–37.1; O2SAT 95–100; BMI 27.1; BMI 27.3
[2024-07-19 06:01] LABS: Basophils % (Auto) 1 % (0-2.5); Eosinophils # (Auto) 0.2 Thou/mm3 (0.0-0.5); Eosinophils % (Auto) 2 % (0-10); Hematocrit 25.1 % (41.0-53.0); Immature Granulocytes % (Auto) 0 % (0-0); Immature Granulocytes Auto 0.03 Thou/mm3 (0.00-0.00); Lymphocytes # (Auto) 1.4 Thou/mm3 (1.0-4.8); Lymphocytes % (Auto) 19 % (10-50); Mean Corpuscular HGB Conc 33.5 g/dl (31.0-37.0); Mean Corpuscular Hemoglobin 29.1 pg (25.0-35.0); Mean Corpuscular Volume 87 fL (80-100); Monocytes # (Auto) 0.6 Thou/mm3 (0.0-0.8); Monocytes % (Auto) 8 % (0-12); Neutrophils # (Auto) 5.2 Thou/mm3 (1.8-7.7); Neutrophils % (Auto) 70 % (37-80); Nucleated Red Blood Cell % 0 /100 WBC (0); Platelet Count 211 Thou/mm3 (140-440); RDW Standard Deviation 56.9 fL (35.1-43.9); Red Blood Count 2.89 Miln/mm3 (4.50-5.90); White Blood Count 7.4 Thou/mm3 (3.8-10.6)
[2024-07-19 06:09] LABS: Hemoglobin 8.4 g/dL (13.5-16.0)
[2024-07-19 06:38] LABS: Alanine Aminotransferase 25 U/L (10-49); Albumin, Serum 3.4 gm/dL (3.4-4.8); Albumin/Globulin Ratio 1.8 (1.2-2.2); Alkaline Phosphatase 66 U/L (46-116); Anion Gap 9 (7-16); Aspartate Amino Transferase 28 U/L (0-34); BUN/Creatinine Ratio 20 Ratio (12-20); Bilirubin,Total 0.5 mg/dL (0.3-1.2); Blood Urea Nitrogen 14 mg/dL (9-23); Calcium 8.1 mg/dL (8.3-10.6); Calcium (Corrected) 8.6 mg/dL (8.5-10.1); Carbon Dioxide 27.9 mMol/L (20.0-31.0); Chloride 108 mMol/L (98-107); Creatinine (Component) 0.7 mg/dL (0.6-1.3); Estimated Creatinine Clearance 66.3 mL/min (>60); Globulin 1.9 gm/dL (2.3-3.5); Glucose 101 mg/dL (74-106); Magnesium 1.8 mg/dL (1.6-2.6); Osmolality,Calculated 289 (275-295); Potassium 3.7 mMol/L (3.4-5.1); Sodium 145 mMol/L (136-145); Total Protein 5.3 gm/dL (5.7-8.2); eGFR > 60 See Note
[2024-07-19] MEDS: PANTOPRAZOLE INJ 40 MG VIAL IVP ×2 (09:48→20:07)
[2024-07-19] MEDS: VIT B12/Vit C/FA (Nephrovite) TABLET 1 TAB PO (10:02)
--- NOTE | 2024-07-19 11:36 | ESPR_ITS ---
Documentation for date of: 07/19/24 Subjective Subjective Interval history: Patient seen today at the bedside found awake, alert, orientedx3. No overnight events reported. No active complaints at this time. State dizziness and lightheadedness has improved. Vitals and labs reviewed. Hemoglobin has remained stable at 8.4 today. EGD was done and showed esophagitis and gastritis. GI recommended GoLytely prep for colonoscopy. Will continue to monitor at this time. Exam Vital Signs Temp Pulse Resp BP Pulse Ox O2 Del Method O2 Flow Rate 98.5 F 84 20 117/64 96 Room Air 3 07/19/24 08:00 07/19/24 08:00 07/19/24 08:00 07/19/24 08:00 07/19/24 08:00 07/19/24 08:00 07/18/24 16:40 Narrative Exam Physical Exam GENERAL: NAD, AAOx3 HEENT: moist mucosa. Eyes open, symmetrical, & clear CARDIO: Heart RRR, no obvious murmurs PULM: No noted coughing/dyspnea CTA B/L, no R/W/R GI: Abdomen soft, nondistended, no pain on palpation. BSx4 SKIN/MSK/EXT: No wounds/rashes/edema/amputations, no pain on palpation. Pedal pulses present B/L NEURO: AAOx3, no focal neuro deficits, able to move all 4 extremities Objective Labs 07/20/24 05:25 07/20/24 05:25 Labs: Laboratory Results - last 24 hr 07/19/24 05:10 WBC 7.4 RBC 2.89 L Hgb 8.4 L Hct 25.1 L MCV 87 MCH 29.1 MCHC 33.5 RDW Std Deviation 56.9 H Plt Count 211 Neut % (Auto) 70 Lymph % (Auto) 19 [place] % (Auto) 8 Eos % (Auto) 2 Baso % (Auto) 1 Neut # (Auto) 5.2 Lymph # (Auto) 1.4 [place] # (Auto) 0.6 Eos # (Auto) 0.2 Baso # (Auto) 0.0 Immature Gran # (Auto) 0.03 H Absolute Nucleated RBC 0.00 Immature Gran % 0 Nucleated RBC % 0 Sodium 145 Potassium 3.7 Chloride 108 H Carbon Dioxide 27.9 Anion Gap 9 BUN 14 Creatinine 0.7 Estim Creat Clear Calc 66.3 eGFR > 60 BUN/Creatinine Ratio 20 Glucose 101 Calculated Osmolality 289 Calcium 8.1 L Corrected Calcium 8.6 Phosphorus 3.0 Magnesium 1.8 Total Bilirubin 0.5 AST 28 ALT 25 Alkaline Phosphatase 66 Total Protein 5.3 L Albumin 3.4 Globulin 1.9 L Albumin/Globulin Ratio 1.8 Quality Measures Quality Measures none Advance care planning discussed with:: patient Assessment & Plan Assessment Current Active Medications: Generic Name Dose Route Start Last Admin Trade Name Freq PRN Reason Stop Dose Admin Acetaminophen 650 mg 07/17/24 17:41 Acetaminophen 325 Mg Tablet PO 08/16/24 17:40 Q6H PRN Fever >101.5 Acetaminophen 1,000 mg 07/17/24 17:41 Acetaminophen 500 Mg Tablet PO 08/16/24 17:40 Q6H PRN PAIN SCALE 1-3 (mild Docusate Sodium 100 mg 07/18/24 09:00 07/19/24 09:50 Docusate Sod 100 Mg Capsule PO 08/17/24 08:59 Not Given QDAY [facility] Protocol Ondansetron HCl 4 mg 07/17/24 17:41 Ondansetron Inj 2 Mg/Ml Inj 2 Ml IVP 08/16/24 17:40 Q6H PRN NAUSEA OR VOMITING Protocol Pantoprazole Sodium 40 mg 07/17/24 21:00 07/19/24 09:48 Pantoprazole Inj 40 Mg Vial IVP 08/16/24 20:59 40 mg BID DALJIT Administration Sennosides 1 tab 07/18/24 09:00 07/19/24 09:50 Senna Tablet PO 08/17/24 08:59 Not Given QDAY [facility] Protocol Vitamin B Complex/Vit C/Folic Acid 1 tab 07/19/24 10:00 07/19/24 10:02 Vit B12/Vit C/Fa (Nephrovite) Tablet PO 08/18/24 09:59 1 tab QDAY DALJIT Administration Plan 79-year-old male with past medical history of hyperlipidemia, arthritis, gastric ulcers, chronic anemia who presented to the ED due to weakness, lightheadedness, shortness of breath, dark tarry stools. Patient will be admitted for GI bleed workup. #Upper GI bleed #Hx of gastric and esophageal ulcers #Hx of anemia presented to the ED from his primary care physician's office due to low hemoglobin. Apparently the patient has been feeling weak dizzy and nauseous for about 2 days, patient also notices stool has become dark and tarry and is currently not on any type of iron supplementation or taking Pepto-Bismol. At the primary care physician's office hemoglobin was about a 9.6 on arrival to the ER hemoglobin shows 7.6. Patient also has hx of prior gastric ulcers >3years ago 3pRBCs transfused EGD showed gastritis and esophagitis ? Protonix 40 twice daily ? pending colonoscopy ? GI consulted, appreciate recommendations #Hyperlipidemia not on any meds at this time Disposition: telemetry, pending GI work up Fluids: NS Feeding: NPO for possible procedure Thrombo prophylaxis: SCDs Gastric Ulcer prophylaxis: Pantoprazole CODE STATUS: Full code Case discussed with my attending Dr. Ida Rose MD PGY-1 Attending Provider Attestation/Addendum IValerie DO, attest that I was physically present for the salvador portions of the service and evaluated the patient with the resident and I reviewed and discussed the case with the resident and agree with the resident's findings and plans of care as documented above Patient seen and eval this a.m.Endoscopy was done yesterday showing esophagitis and gastritis, as well as large hiatal hernia. Patient is scheduled for colonoscopy as a source of anemia remains obscure. Patient continues to be on bowel prep. Will follow-up with colonoscopy results. Hemoglobin appears unchanged. Patient is otherwise hemodynamically stable at this time.
[2024-07-19] MEDS: ACETAMINOPHEN 500 MG TABLET 1000 MG PO (20:07)
[2024-07-20] VITALS (14 sets, daily range): BP systolic 92–121; BP diastolic 52–79; PULSE 48–110; RESP 13–95; TEMP 36.4–37.2; O2SAT 93–98
[2024-07-20 06:00] LABS: Basophils % (Auto) 1 % (0-2.5); Eosinophils # (Auto) 0.2 Thou/mm3 (0.0-0.5); Eosinophils % (Auto) 3 % (0-10); Hematocrit 23.6 % (41.0-53.0); Immature Granulocytes % (Auto) 0 % (0-0); Immature Granulocytes Auto 0.01 Thou/mm3 (0.00-0.00); Lymphocytes # (Auto) 1.2 Thou/mm3 (1.0-4.8); Lymphocytes % (Auto) 24 % (10-50); Mean Corpuscular HGB Conc 33.1 g/dl (31.0-37.0); Mean Corpuscular Hemoglobin 29.1 pg (25.0-35.0); Mean Corpuscular Volume 88 fL (80-100); Monocytes # (Auto) 0.5 Thou/mm3 (0.0-0.8); Monocytes % (Auto) 10 % (0-12); Neutrophils # (Auto) 3.1 Thou/mm3 (1.8-7.7); Neutrophils % (Auto) 62 % (37-80); Nucleated Red Blood Cell % 0 /100 WBC (0); Platelet Count 249 Thou/mm3 (140-440); RDW Standard Deviation 57.2 fL (35.1-43.9); Red Blood Count 2.68 Miln/mm3 (4.50-5.90); White Blood Count 4.9 Thou/mm3 (3.8-10.6)
[2024-07-20 06:01] LABS: Hemoglobin 7.8 g/dL (13.5-16.0)
[2024-07-20 06:18] LABS: Alanine Aminotransferase 24 U/L (10-49); Albumin, Serum 3.3 gm/dL (3.4-4.8); Albumin/Globulin Ratio 1.8 (1.2-2.2); Alkaline Phosphatase 68 U/L (46-116); Anion Gap 8 (7-16); Aspartate Amino Transferase 23 U/L (0-34); BUN/Creatinine Ratio 18 Ratio (12-20); Bilirubin,Total 0.5 mg/dL (0.3-1.2); Blood Urea Nitrogen 11 mg/dL (9-23); Calcium 7.9 mg/dL (8.3-10.6); Calcium (Corrected) 8.5 mg/dL (8.5-10.1); Carbon Dioxide 28.5 mMol/L (20.0-31.0); Chloride 108 mMol/L (98-107); Creatinine (Component) 0.6 mg/dL (0.6-1.3); Estimated Creatinine Clearance 80.4 mL/min (>60); Globulin 1.8 gm/dL (2.3-3.5); Glucose 98 mg/dL (74-106); Magnesium 1.8 mg/dL (1.6-2.6); Osmolality,Calculated 286 (275-295); Phosphorous 3.9 mg/dL (2.4-5.1); Potassium 3.4 mMol/L (3.4-5.1); Sodium 144 mMol/L (136-145); Total Protein 5.1 gm/dL (5.7-8.2); eGFR > 60 See Note
[2024-07-20] MEDS: DOCUSATE SOD 100 MG CAPSULE PO (08:23)
[2024-07-20] MEDS: PANTOPRAZOLE INJ 40 MG VIAL IVP ×2 (08:23→20:05)
[2024-07-20] MEDS: SENNA TABLET 1 TAB PO (08:23)
[2024-07-20] MEDS: VIT B12/Vit C/FA (Nephrovite) TABLET 1 TAB PO (08:23)
[2024-07-20] MEDS: POTASSIUM CHLORIDE 20 mEq TABCR 40 MEQ PO (08:30)
[2024-07-20] MEDS: Magnesium Sulfate 4 GM Ivpb 4 GM/50 ML BAG IV (08:30)
[2024-07-20] MEDS: IRON SUCROSE CPLX INJ 20 MG/ML VIAL 5 ML 200 MG IVP (10:05)
--- NOTE | 2024-07-20 12:04 | PD.RESPRO ---
Documentation for date of: 07/20/24 Subjective Subjective Interval history: Patient seen today at the bedside found awake, alert, orientedx3. No overnight events reported. No active complaints at this time. Vitals and labs reviewed. Colonoscopy was done and showed some hemorrhoids which were banded. Hemoglobin today has down trended place patient on IV iron supplementation and will monitor H&H in the afternoon. Exam Vital Signs Temp Pulse Resp BP Pulse Ox O2 Del Method O2 Flow Rate 99.0 F 91 19 95/79 96 Room Air 2 07/20/24 11:52 07/20/24 11:52 07/20/24 11:52 07/20/24 11:52 07/20/24 11:52 07/20/24 11:52 07/19/24 18:58 Narrative Exam Physical Exam GENERAL: NAD, AAOx3 HEENT: moist mucosa. Eyes open, symmetrical, & clear CARDIO: Heart RRR, no obvious murmurs PULM: No noted coughing/dyspnea CTA B/L, no R/W/R GI: Abdomen soft, nondistended, no pain on palpation. BSx4 SKIN/MSK/EXT: No wounds/rashes/edema/amputations, no pain on palpation. Pedal pulses present B/L NEURO: AAOx3, no focal neuro deficits, able to move all 4 extremities Objective Labs 07/20/24 05:25 07/20/24 05:25 Labs: Laboratory Results - last 24 hr 07/20/24 05:25 WBC 4.9 RBC 2.68 L Hgb 7.8 L Hct 23.6 L MCV 88 MCH 29.1 MCHC 33.1 RDW Std Deviation 57.2 H Plt Count 249 D Neut % (Auto) 62 Lymph % (Auto) 24 [place] % (Auto) 10 Eos % (Auto) 3 Baso % (Auto) 1 Neut # (Auto) 3.1 Lymph # (Auto) 1.2 [place] # (Auto) 0.5 Eos # (Auto) 0.2 Baso # (Auto) 0.0 Immature Gran # (Auto) 0.01 H Absolute Nucleated RBC 0.00 Immature Gran % 0 Nucleated RBC % 0 Sodium 144 Potassium 3.4 Chloride 108 H Carbon Dioxide 28.5 Anion Gap 8 BUN 11 Creatinine 0.6 Estim Creat Clear Calc 80.4 eGFR > 60 BUN/Creatinine Ratio 18 Glucose 98 Calculated Osmolality 286 Calcium 7.9 L Corrected Calcium 8.5 Phosphorus 3.9 Magnesium 1.8 Total Bilirubin 0.5 AST 23 ALT 24 Alkaline Phosphatase 68 Total Protein 5.1 L Albumin 3.3 L Globulin 1.8 L Albumin/Globulin Ratio 1.8 Quality Measures Quality Measures none Advance care planning discussed with:: patient Assessment & Plan Assessment Current Active Medications: Generic Name Dose Route Start Last Admin Trade Name Freq PRN Reason Stop Dose Admin Acetaminophen 650 mg 07/17/24 17:41 Acetaminophen 325 Mg Tablet PO 08/16/24 17:40 Q6H PRN Fever >101.5 Acetaminophen 1,000 mg 07/17/24 17:41 07/19/24 20:07 Acetaminophen 500 Mg Tablet PO 08/16/24 17:40 1,000 mg Q6H PRN Administration PAIN SCALE 1-3 (mild Docusate Sodium 100 mg 07/18/24 09:00 07/20/24 08:23 Docusate Sod 100 Mg Capsule PO 08/17/24 08:59 100 mg QDAY DALJIT Administration Protocol Magnesium Sulfate 4 gm in 50 mls @ 12.5 mls/hr 07/20/24 08:15 07/20/24 08:30 Magnesium Sulfate Ivpb IV 07/20/24 12:14 12.5 mls/hr X1 ONE Administration Iron Sucrose 200 mg 07/20/24 09:00 07/20/24 10:05 Iron Sucrose Cplx Inj 20 Mg/Ml Vial 5 Ml IVP 07/25/24 08:59 200 mg QDAY DALJIT Administration Ondansetron HCl 4 mg 07/17/24 17:41 Ondansetron Inj 2 Mg/Ml Inj 2 Ml IVP 08/16/24 17:40 Q6H PRN NAUSEA OR VOMITING Protocol Pantoprazole Sodium 40 mg 07/17/24 21:00 07/20/24 08:23 Pantoprazole Inj 40 Mg Vial IVP 08/16/24 20:59 40 mg BID DALJIT Administration Sennosides 1 tab 07/18/24 09:00 07/20/24 08:23 Senna Tablet PO 08/17/24 08:59 1 tab QDAY DALJIT Administration Protocol Vitamin B Complex/Vit C/Folic Acid 1 tab 07/19/24 10:00 07/20/24 08:23 Vit B12/Vit C/Fa (Nephrovite) Tablet PO 08/18/24 09:59 1 tab QDAY DALJIT Administration Plan 79-year-old male with past medical history of hyperlipidemia, arthritis, gastric ulcers, chronic anemia who presented to the ED due to weakness, lightheadedness, shortness of breath, dark tarry stools. Patient will be admitted for GI bleed workup. #Upper GI bleed #Hx of gastric and esophageal ulcers #Hx of anemia presented to the ED from his primary care physician's office due to low hemoglobin. Apparently the patient has been feeling weak dizzy and nauseous for about 2 days, patient also notices stool has become dark and tarry and is currently not on any type of iron supplementation or taking Pepto-Bismol. At the primary care physician's office hemoglobin was about a 9.6 on arrival to the ER hemoglobin shows 7.6. Patient also has hx of prior gastric ulcers >3years ago 3pRBCs transfused EGD showed gastritis and esophagitis Colonoscopy showed hemorrhoids which were banded ? Protonix 40 twice daily ? GI consulted, appreciate recommendations ? F/u H&H ? Transfuse 1 unit PRBCs #Hyperlipidemia not on any meds at this time Disposition: telemetry, pending GI work up Fluids: NS Feeding: regular Thrombo prophylaxis: SCDs Gastric Ulcer prophylaxis: Pantoprazole CODE STATUS: Full code Case discussed with my attending Dr. Ida Rose MD PGY-1 Attending Provider Attestation/Addendum Valerie Tobias DO, attest that I was physically present for the salvador portions of the service and evaluated the patient with the resident and I reviewed and discussed the case with the resident and agree with the resident's findings and plans of care as documented above Patient seen and eval this a.m. Patient states that he is feeling well and tolerating oral intake. However, hemoglobin appears to be downtrending. Patient did have a bowel movement this morning and appears to be normal. Blood pressure continues to be low?normal. Will repeat H&H in the afternoon. Will continue to monitor closely. Discussed with patient and family that patient may need a capsule endoscopy in the event that he continues to have bleeding as colonoscopy done yesterday shows evidence of hemorrhoids.
--- NOTE | 2024-07-20 12:10 | XR_ITS ---
Examination: CT brain head without contrast. 2-D sagittal coronal reconstructions Date and time of exam:July 20, 2024 at 1240 hrs. Indications: New onset of blurred vision today CTDI: vol (mGy):48.7 DLP: (mGycm):937 Technique: Multiple CT axial sections of the brain have been obtained, 5 mm slice thickness. Contrast has not been administered. 2-D sagittal, coronal reconstructions have been obtained Low dose protocols were performed. One or more of the following dose reduction techniques were used; automated exposure control, adjustment of the mA and/or KV according to patient size, use of iterative reconstruction technique. Findings: No significant ventricular enlargement. Intra-axial or extra-axial hemorrhage density is not seen. No mass effect or midline shift Basal cisterns are not remarkable. Fourth ventricle is midline. Cranial vault intact. Impression: Negative for acute hemorrhage, mass effect or midline shift Consider brain MRI MRA without contrast, stroke protocol, follow-up
[2024-07-20 13:36] LABS: Hematocrit 25.7 % (41.0-53.0)
[2024-07-20 13:59] LABS: Hemoglobin 8.4 g/dL (13.5-16.0)
[2024-07-21] VITALS: BP 115/60; PULSE 54; PULSE 63; RESP 21; TEMP 36.2; O2SAT 95
[2024-07-21 04:00] VITALS: BP 123/85; PULSE 63; PULSE 64; RESP 19; TEMP 36.4; O2SAT 98
[2024-07-21 05:34] VITALS: BMI 30.7
[2024-07-21 06:40] LABS: Basophils % (Auto) 1 % (0-2.5); Eosinophils # (Auto) 0.2 Thou/mm3 (0.0-0.5); Eosinophils % (Auto) 3 % (0-10); Hematocrit 29.9 % (41.0-53.0); Hemoglobin 10.3 g/dL (13.5-16.0); Immature Granulocytes % (Auto) 0 % (0-0); Immature Granulocytes Auto 0.01 Thou/mm3 (0.00-0.00); Lymphocytes # (Auto) 1.1 Thou/mm3 (1.0-4.8); Lymphocytes % (Auto) 17 % (10-50); Mean Corpuscular HGB Conc 34.4 g/dl (31.0-37.0); Mean Corpuscular Hemoglobin 30.1 pg (25.0-35.0); Mean Corpuscular Volume 87 fL (80-100); Monocytes # (Auto) 0.6 Thou/mm3 (0.0-0.8); Monocytes % (Auto) 10 % (0-12); Neutrophils # (Auto) 4.3 Thou/mm3 (1.8-7.7); Neutrophils % (Auto) 70 % (37-80); Nucleated Red Blood Cell # 0.02 Thou/mm3 (0.00-0.00); Nucleated Red Blood Cell % 0 /100 WBC (0); Platelet Count 242 Thou/mm3 (140-440); RDW Standard Deviation 53.8 fL (35.1-43.9); Red Blood Count 3.42 Miln/mm3 (4.50-5.90); White Blood Count 6.2 Thou/mm3 (3.8-10.6)
[2024-07-21 07:23] LABS: Alanine Aminotransferase 26 U/L (10-49); Albumin, Serum 3.6 gm/dL (3.4-4.8); Albumin/Globulin Ratio 1.9 (1.2-2.2); Alkaline Phosphatase 80 U/L (46-116); Anion Gap 10 (7-16); Aspartate Amino Transferase 23 U/L (0-34); BUN/Creatinine Ratio 11 Ratio (12-20); Bilirubin,Total 0.4 mg/dL (0.3-1.2); Blood Urea Nitrogen 8 mg/dL (9-23); Calcium 8.4 mg/dL (8.3-10.6); Calcium (Corrected) 8.7 mg/dL (8.5-10.1); Carbon Dioxide 26.4 mMol/L (20.0-31.0); Chloride 107 mMol/L (98-107); Creatinine (Component) 0.7 mg/dL (0.6-1.3); Estimated Creatinine Clearance 68.9 mL/min (>60); Globulin 1.9 gm/dL (2.3-3.5); Glucose 100 mg/dL (74-106); Osmolality,Calculated 283 (275-295); Phosphorous 3.2 mg/dL (2.4-5.1); Potassium 3.8 mMol/L (3.4-5.1); Sodium 143 mMol/L (136-145); Total Protein 5.5 gm/dL (5.7-8.2); eGFR > 60 See Note
[2024-07-21 07:43] VITALS: PULSE 84; RESP 20; RESP 95
[2024-07-21 08:00] VITALS: BP 93/74; PULSE 75; RESP 19; TEMP 36.9; O2SAT 95
[2024-07-21] MEDS: PANTOPRAZOLE INJ 40 MG VIAL IVP (08:54)
[2024-07-21] MEDS: VIT B12/Vit C/FA (Nephrovite) TABLET 1 TAB PO (08:55)
[2024-07-21] MEDS: IRON SUCROSE CPLX INJ 20 MG/ML VIAL 5 ML 200 MG IVP (08:55)
[2024-07-21] MEDS: DOCUSATE SOD 100 MG CAPSULE PO (08:55)
[2024-07-21 09:00] VITALS: RESP 95
--- NOTE | 2024-07-21 11:32 | ESDS_ITS ---
<Statement entered by Valerie Prieto DO - 07/22/24 09:14> I, Valerie Prieto DO, attest that I was physically present for the salvador portions of the service and evaluated the patient with the resident and I reviewed and discussed the case with the resident and agree with the resident's findings and plans of care as documented above Planned Discharge Date 07/21/24 DS: Providers Provider Date of admission: 07/17/24 17:41 Primary care physician: Irasema Olmstead PA-C Admitting Provider: Brian Garcia MD Attending Provider on Admission: Valerie Prieto DO Consults: 07/17/24 17:04 Consult to Gastroenterology Stat Comment: Upper GI bleed Consulting Provider: Mickie Norwood 07/17/24 18:01 Consult to Gastroenterology Stat Comment: Consulting Provider: Mickie Norwood Attending Provider on DC: Destin Lemus MD Discharging Provider: Destin Lemus MD DS: Diagnosis Problem List Completed Was Problem List Reviewed/Reconciled?: Yes Hospital Course Hospital Course Hospital course: 79-year-old male with past medical history of hyperlipidemia, arthritis, gastric ulcers presented to the ED on 07/17 for low hemoglobin seen during routine lab work. Patient did have dizziness and reported some dark tarry stools; moreover, patient was ultimately admitted for GI bleed with gastroenterology consulted for recommendations. Patient received IV fluid resuscitation, Protonix and was transfused 2 units of PRBCs. On 07/18 patient had a EGD completed which showed esophagitis in the lower third of the esophagus, mild inflammation characterized by erythema in the gastric antrum. Recommendation was to complete colonoscopy as the source of anemia remained obscure. On 07/19 colonoscopy was completed which showed hemorrhoids on perianal exam, internal hemorrhoids created grade 3 which were banded without any complications. Patient's diet was slowly advanced; however, on 07/20 patient reported some blurry vision at which point CT head was ordered which was negative. Patient's blurry vision has resolved and he generally feels well. Patient will be discharged with the following strict instructions. Please take ferric citrate (iron supplements) 210mg once a day by mouth for iron deficiency anemia Continue all other home medications as prescribed Please follow-up with your PCP within 1-2 weeks after discharge Ask your PCP if you can be referred to GI for possible need for capsule endoscopy If your symptoms worsen or if you develop new chest pain, shortness of breath, dizziness, severe abdominal pain or bleeding - please come back to the ED immediately. Hospital Diagnosis: #Upper GI bleed #Acute blood loss anemia #Chronic anemia #Gastric ulcer #Esophageal ulcer #Hyperlipidemia Destin Allan, PGY-1 Status at Discharge Overall status at discharge: patient is progressing back to baseline Time Spent with Patient Time attestation: Total time spent providing and/or coordinating discharge services: 45 minutes Time spent: Greater than 30 minutes Exam Vital Signs Temp Pulse Resp BP Pulse Ox O2 Del Method O2 Flow Rate 98.5 F 75 19 93/74 95 Room Air 2 07/21/24 08:00 07/21/24 08:00 07/21/24 08:00 07/21/24 08:00 07/21/24 08:00 07/21/24 08:00 07/20/24 09:00 Narrative Exam Physical Exam GENERAL: NAD, AAOx3 HEENT: moist mucosa. Eyes open, symmetrical, & clear CARDIO: Heart RRR, no obvious murmurs PULM: No noted coughing/dyspnea CTA B/L, no R/W/R GI: Abdomen soft, nondistended, no pain on palpation. BSx4 SKIN/MSK/EXT: No wounds/rashes/edema/amputations, no pain on palpation. Pedal pulses present B/L NEURO: AAOx3, no focal neuro deficits, able to move all 4 extremities Discharge Plan Plan Patient Disposition: HOME (Self Care) Patient condition on transfer: Stable Care Plan Goals: Please take ferric citrate (iron supplements) 210mg once a day by mouth for iron deficiency anemia Continue all other home medications as prescribed Please follow-up with your PCP within 1-2 weeks after discharge Ask your PCP if you can be referred to GI for possible need for capsule endoscopy If your symptoms worsen or if you develop new chest pain, shortness of breath, dizziness, severe abdominal pain or bleeding - please come back to the ED immediately. Prescriptions/Referrals Prescriptions/Med Rec: New ferric citrate [Auryxia] 210 mg iron tablet 210 mg PO QDAY 30 Days Qty: 30 0RF Rx Instructions: administer with a meal Continued pantoprazole 40 mg tablet,delayed release (DR/EC) 40 mg PO BID Qty: 60 0RF Rx Instructions: Take pantoprazole 40mg twice daily for 3 months diclofenac sodium 1 % gel 2 g TOPICAL QDAY PRN (Reason: pain (scale score 1-3)) Patient Comments: APPLY .5 GRAM TO AFFECTED AREA TWO TIMES PER DAY NEEDED FOR PAIN Referrals: Irasema Olmstead PA-C [Primary Care Provider] - Patient/Caregiver Discharge Instructions Education Materials: Anemia, Iron Supplements, Understanding Hemorrhoids Print Language: German Stand Alone Forms: Dimple Award Info., Patient Portal Info Letter Discharge Order Discharge Orders: Discharge (Routine); Ordered 07/21/24 Ordered By: Destin Lemus Quality Discharge Quality Measures VTE prophylaxis
[2024-07-21 12:00] VITALS: BP 93/53; PULSE 85; RESP 15; TEMP 37.3; O2SAT 95
--- NOTE | 2024-07-21 14:40 | PC.SS ---
pt alert and oriented x4; medicare information provided in [place] language (Azeri); nurse assisted with translation
--- NOTE | 2024-07-22 16:14 | PC.CC ---
Notified by BALDEV Vega, that [facility] had reported $210 for Auryxia. Unable to reach Luc at phone # given. S/W dtr Leda via phone and recommended Ferrous Sulfate 325mg OTC QOD with orange juice. Leda agreeable and will relay information to patient and sister in law.
== END 2024-07-21 13:13 | disposition home or self-care (01) | DRG 348 ==
LOC: SERX 16:47 → SERHOLD 18:17 → S2NX 21:36
PROVIDERS: Nurse Practitioner Family; Specialist; Student in an Organized Health Care Education/Training Program; Admitting Provider Internal Medicine; Emergency Provider Family Medicine; PCP Physician Assistant; Visit Provider Internal Medicine
PROC: 0DJ08ZZ Inspection of Upper Intestinal Tract, Via Natural or Artificial Opening Endoscopic (ICD-10-PCS; CPT 43239; principal; 2024-07-18 16:30)
PROC: 0DJD8ZZ Inspection of Lower Intestinal Tract, Via Natural or Artificial Opening Endoscopic (ICD-10-PCS; CPT 45378; principal; 2024-07-19 18:15)
DX: K22.11 Ulcer of esophagus with bleeding (principal); D62 Acute posthemorrhagic anemia; K25.4 Chronic or unspecified gastric ulcer with hemorrhage; E78.5 Hyperlipidemia, unspecified; M19.90 Unspecified osteoarthritis, unspecified site; Z96.653 Presence of artificial knee joint, bilateral; K29.71 Gastritis, unspecified, with bleeding; K64.2 Third degree hemorrhoids; D50.9 Iron deficiency anemia, unspecified; K44.9 Diaphragmatic hernia without obstruction or gangrene; D72.829 Elevated white blood cell count, unspecified; Z88.8 Allergy status to other drugs, medicaments and biological substances; Z79.899 Other long term (current) drug therapy
CPT/HCPCS: 36415; 36430; 70450; 80053; 83735; 84100; 85014; 85018; 85025; 85610; 85730; 86850; 86900; 86901; 86923; 96361; 96374; 99285; A4649; J1200; J1756; J2250; J2470; J3010; J3475; J7030; P9016; A9270

== ENCOUNTER 2024-07-24 10:00 | Outpatient (AMB) | payer MEDICARE, MEDICAID, SELFPAY ==
[2024-07-24 10:25] VITALS: BP 125/66; PULSE 74; RESP 17; TEMP 37.1; O2SAT 96; BMI 25.6
--- NOTE | 2024-07-24 10:25 | ORTHONT_ITS ---
Vital signs 07/24/24 10:25 Height 1.57 m Height Method Measured Weight 63.503 kg Weight Measurement Method Standing Scale BMI 25.6 BP 125/66 Blood Pressure Source Automatic Cuff Blood Pressure Location Right Upper Arm Position Sitting Respiration 17 Pulse 74 Pulse Source Monitor Temp 98.7 F Temp Source Temporal Artery Scan Pulse Oximetry (%) 96 Oxygen Delivery Method Room Air Med/Allergies Allergies & Medications Allergies naproxen Allergy (Severe, Verified 07/24/24 10:26) Hives Medication Reconciliation pantoprazole 40 mg tablet,delayed release 40 mg PO BID #60 tabs 05/05/22 [Rx C onfirmed 07/24/24] diclofenac sodium 1 % topical gel 2 g topical QDAY PRN pain (scale score 1-3) 07/17/24 [History Confirmed 07/24/24] ferric citrate 210 mg iron tablet (Auryxia) 210 mg PO QDAY 1 month #30 tabs 07/21/24 [Rx Confirmed 07/24/24] Exam Exam Patient is in no acute distress and is cooperative with the examination today. Patient has a normal mood and affect. Breathing is nonlabored. In no respiratory distress. Bilateral extremities were evaluated and demonstrates sensation intact to light touch. Palpable pedal pulses are present. No significant edema is present. Left knee incision is clean dry intact. Range of motion 0 to 105 degrees. Knee feels stable varus valgus stress as well as AP translation. Right knee incision is clean dry intact. The knee is very loose. There is greater than 5 mm of medial and lateral translation as well as AP translation. The knee appears to be in varus deformity. X-rays of the right knee were reviewed from [facility]. 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 Assessment and Plan Problem List (1) Mechanical loosening of internal right knee prosthetic joint: Status: Acute Plan: Patient is a 79-year-old male with right knee loosening and osteolysis. I am worried about infection. Will get an ESR and CRP as well as likely a joint aspiration afterwards. It has been 10 years Since the prior total knee replacement. We will rule out infection and discussed the treatment options depending On whether an infection is present Advanced Care Planning Discussion Advance care planning discussed with:: patient Office Procedures GNS Level of Care Nursing/Assessment Patient Status: Initial/New Patient Nursing Assessment/Reassesment: Medication Reconciliation, Update PMH in EMR and Vital Signs Coordination of Care: Complex Care and Chronic Disease 1-5, Education Complex Pt/Fam, Consent,records obtained, informed consent, 1 Ins Authorization, Lab and Imaging orders, Results/Orders obtained and Staff clarify orders New Patient Charge New Patient Point Assignment: 1124 New Patient Point Charge: YARD GOODS SALESPERSON Level 4 (1120-8461) MA Intake Visit Data Collection New Patient or Established: Established Patient (seen at [facility] within 3 years) Reason for Visit:: RT KNEE/HIP PAIN Seen by Clinical Staff ONLY (RN/MA): No Senior Treasury Analyst Required: No PCP or OBGYN visit in last 3 months: Yes Hx Now: No Do You Feel Safe at Home: Yes Authorities Contacted: N/A Questionairres Past Medical History Past Medical History Have you ever been diagnosed with any of the following: Neurological Problems Seizures: No Cardiology Problems Hypercholesterolemia: Yes Congestive Heart Failure: No Respiratory Problems Chronic Obstructive Pulmonary Disease (COPD): No Genital/Urinary Problems Renal Disease: No Endocrine Problems Diabetes Mellitus Type 1: No Diabetes Mellitus Type 2: No Blood Problems Anemia: Yes Other Problems Blood Transfusions: Yes Blood Transfusion Reaction: No Anesthesia Reactions: No Subjective Visit Visit for: new patient, hip (RIGHT HIP ) and knee (RIGHT KNEE ) Immunization / Flu Flu Vaccine in the Last 12 Months: Yes Flu Vaccine Exclusion Criteria: Already Received History of Present Illness Chief complaint: Right knee pain Kalin is a 79-year-old male with significant right knee pain. This has been ongoing for about 4 months. 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 He reports his knee feels loose and he uses a cane. This was done 20 years ago in [place]. Personal History Red flag PMH: none Pain Pain level (0-10): 10 Pain duration: 04/2024 Pain location: groin and anterior Pain quality: electric and tingling Pain timing: night and increases with activity Associated signs & symptoms: numbness and weakness Ambulatory data Ambulatory device: cane Walking distance (minutes): 1 Treatments Number of previous injections: 0 Number of Physical Therapy sessions: 0 Improvement with NSAIDS: n/a Review of Systems Review of Systems: All systems negative unless otherwise noted in HPI.
--- NOTE | 2024-07-24 10:35 | XR_ITS ---
Examination: Bilateral knees 2 views Right lateral knee left lateral knee 2 views Bilateral axial knees single view TECHNIQUE: Bilateral AP knees standing single view Bilateral PA knees standing single view flexion Standing right lateral knee left lateral knee 2 views Bilateral axial knees single view total 5 views Date and time: July 24, 2024 1054 hours INDICATIONS: Chronic bilateral knee pain 10 years. FINDINGS: Loosening of the prosthetic tibial component of the prosthetic right knee, especially visible on the lateral view, 11 mm separation between the anterior proximal tibia and the prosthetic stem of the tibial prosthetic component Apparent chronic fracture lines involving the patella Total left knee arthroplasty with satisfactory alignment No definite loosening of the left prosthetic components IMPRESSION: Positive for loosening of the prosthetic tibial component of the right knee replacement
== END 2024-07-24 10:44 | disposition home or self-care (01) ==
PROVIDERS: PCP Student in an Organized Health Care Education/Training Program; Referring Provider Student in an Organized Health Care Education/Training Program; Supervising Provider Orthopaedic Surgery Adult Reconstructive Orthopaedic Surgery; Visit Provider Orthopaedic Surgery Adult Reconstructive Orthopaedic Surgery
DX: T84.032A Mechanical loosening of internal right knee prosthetic joint, initial encounter (principal)
CPT/HCPCS: 73564; 99204; G0463

== ENCOUNTER 2024-07-28 10:05 | Inpatient (IN) | payer MEDICARE, MEDICAID, SELFPAY ==
[2024-07-28] VITALS (12 sets, daily range): BP systolic 88–110; BP diastolic 54–74; PULSE 75–107; RESP 12–19; TEMP 36.7–37.2; O2SAT 93–100; BMI 26.4
--- NOTE | 2024-07-28 10:33 | EKG_ITS ---
[facility] Test Date: 2024-07-28 Pat Name: TRISTIN CLEVELANDDepartment: Room: - Gender: Male Table Runner: : [id number] Requested By: Matt Roque Order Number: [id number] Reading MD: Matt Roque Measurements Intervals [place] Rate: 95 P: 63 FL: 177 QRS: -48 QRSD: 85 T: 20 QT: 325 QTc: 410 Interpretive Statements SINUS RHYTHM LEFT ANTERIOR FASCICULAR BLOCK [QRS AXIS <= -45, QR IN I, RS IN II] Compared to ECG 05/02/2022 11:16:59 Left anterior fascicular block now present /store/S0/[id number]/ecg/[id number]
[2024-07-28 11:13] LABS: Basophils # (Auto) 0.1 Thou/mm3 (0.0-0.2); Basophils % (Auto) 1 % (0-2.5); Eosinophils % (Auto) 0 % (0-10); Hematocrit 25.2 % (41.0-53.0); Immature Granulocytes % (Auto) 1 % (0-0); Immature Granulocytes Auto 0.05 Thou/mm3 (0.00-0.00); Lymphocytes # (Auto) 0.7 Thou/mm3 (1.0-4.8); Lymphocytes % (Auto) 8 % (10-50); Mean Corpuscular HGB Conc 32.1 g/dl (31.0-37.0); Mean Corpuscular Hemoglobin 29.8 pg (25.0-35.0); Mean Corpuscular Volume 93 fL (80-100); Monocytes # (Auto) 0.6 Thou/mm3 (0.0-0.8); Monocytes % (Auto) 7 % (0-12); Neutrophils % (Auto) 83 % (37-80); Nucleated Red Blood Cell % 0 /100 WBC (0); Platelet Count 258 Thou/mm3 (140-440); RDW Standard Deviation 59.5 fL (35.1-43.9); Red Blood Count 2.72 Miln/mm3 (4.50-5.90); White Blood Count 8.4 Thou/mm3 (3.8-10.6)
[2024-07-28 11:15] LABS: Hemoglobin 8.1 g/dL (13.5-16.0)
--- NOTE | 2024-07-28 11:17 | PC.NURSE ---
PT COMES FROM HOME, REPORTS THAT HE HAD DIARRHEA AND HAD WHAT LOOKED LIKE SPECS OF TARRY STOOL IN IT. DOES STATE HE ALSO TAKES IRON. PT REPORTS HE HAD ONE EMESIS THIS MORNING, NO LONGER HAS ANY NAUSEA. PT DENIES ANY PAIN CURRENTLY. WILL CONT W/POC.
[2024-07-28 11:25] LABS: INR 1.1 (0.9-1.3); Partial Thromboplastin Time 25.1 Seconds (22.0-36.0); Prothrombin Time 11.6 Seconds (9.0-12.2)
[2024-07-28 11:32] LABS: Alanine Aminotransferase 19 U/L (10-49); Albumin, Serum 3.5 gm/dL (3.4-4.8); Albumin/Globulin Ratio 2.2 (1.2-2.2); Alkaline Phosphatase 67 U/L (46-116); Anion Gap 11 (7-16); Aspartate Amino Transferase 21 U/L (0-34); BUN/Creatinine Ratio 73 Ratio (12-20); Bilirubin,Total 0.2 mg/dL (0.3-1.2); Blood Urea Nitrogen 51 mg/dL (9-23); Calcium 7.5 mg/dL (8.3-10.6); Calcium (Corrected) 7.9 mg/dL (8.5-10.1); Carbon Dioxide 18.8 mMol/L (20.0-31.0); Chloride 111 mMol/L (98-107); Creatinine (Component) 0.7 mg/dL (0.6-1.3); Estimated Creatinine Clearance 68.7 mL/min (>60); Globulin 1.6 gm/dL (2.3-3.5); Glucose 121 mg/dL (74-106); Osmolality,Calculated 295 (275-295); Potassium 4.2 mMol/L (3.4-5.1); Sodium 141 mMol/L (136-145); Total Protein 5.1 gm/dL (5.7-8.2); Troponin I < 0.002 ng/mL (0.0-0.045); eGFR > 60 See Note
[2024-07-28] MEDS: PANTOPRAZOLE/NS 80MG IV PREMIX 80 MG/100 ML BAG 400 MG IV (11:34)
[2024-07-28] MEDS: PANTOPRAZOLE/NS 80MG IV PREMIX 80 MG/100 ML BAG 10 MG IV (11:47)
--- NOTE | 2024-07-28 12:08 | EDNOTE_ITS ---
ED GI Bleed E/HPI General Chief complaint: GI Bleed Stated complaint: BLACK TARRY STOOL X YESTERDAY; DARK VOMIT; SOB Time Seen by Provider: 07/28/24 10:33 Arrival date/time: 07/28/24 10:05 RME / HPI RME / HPI Narrative: 79 year old male with history of gastric ulcers, recent admission 07/17-07/21/2024 for GI bleed, chronic anemia, hyperlipidemia, arthritis presents to the ED for evaluation of dark stools, which began yesterday and have occurred three times today. The stools are described as black and tarry in appearance, without mucous. The patient also reports associated nausea. Per his daughter, the patient was recently hospitalized and underwent a colonoscopy during which a hemorrhoid was banded. During that admission, he received one unit of PRBC and was given GoLYTELY. Following discharge, his stools had returned to a normal brown color until yesterday when the dark stools reappeared. Daughter additionally reported he was advised to return if stool color changed and may require capsule endoscopy. While in the ED, the patient does not have any other complaints. Denies abdominal pain, dizziness, or chest pain. However, his daughter reports that earlier today, while walking from the kitchen to the living room, he appeared short of breath and diaphoretic. Related Data Home Medications ?Medication ?Instructions ?Recorded ?Confirmed diclofenac sodium 1 % topical gel 2 g topical QDAY PRN pain (scale 07/17/24 07/24/24 score 1-3) Previous Rx's ?Medication ?Instructions ?Recorded pantoprazole 40 mg tablet,delayed 40 mg PO BID #60 tab s 05/05/22 release ferric citrate 210 mg iron tablet 210 mg PO QDAY Sun #30 tabs 07/21/24 (Auryxia) Allergies Allergy/AdvReac Type Severity Reaction Status Date / Time naproxen Allergy Severe Hives Verified 07/28/24 10:11 Review of Systems Review of Systems Systems Reviewed: All systems reviewed, normal except as documented Past Medical History Past Medical History NEUROLOGIC: Negative Seizures CARDIAC: Positive Hypercholesterolemia; Negative Congestive Heart Failure RESPIRATORY: Negative Chronic Obstructive Pulmonary Disease (COPD) GENITOURINARY: Negative Renal Disease ENDOCRINE: Negative Diabetes Mellitus Type 1 or Diabetes Mellitus Type 2 HEMATOLOGIC: Positive Anemia OTHER HISTORY: Positive Blood Transfusions; Negative Blood Transfusion Reaction or Anesthesia Reactions Surgical History SURGICAL: Positive Throat Surgery and Abdominal Surgery Social History SMOKING STATUS: Former smoker ED Exam Narrative Physical exam: GENERAL APPEARANCE: AxOx4, no obvious distress, nontoxic appearing, pallor HEENT: NC, AT. MMM. EOMI, clear conjunctiva, oropharynx clear. NECK: Supple without lymphadenopathy. No stiffness or restricted ROM. HEART: Normal rate and regular rhythm, normal S1/S1, no m/r/g LUNGS: CTAB, moving air well. No crackles or wheezes are heard. ABDOMEN: Soft, nontender, nondistended with good bowel sounds heard. BACK: No midline C/T/L spine pain or deformity, No CVAT, no obvious deformity. EXTREMITIES: Without cyanosis, clubbing or edema. MUSCULOSKELETAL: FROM of all major joints, no chest tenderness NEUROLOGICAL: Grossly nonfocal. Alert and oriented, moving all 4 extremities. CN not formally tested but appear grossly intact. Skin: Warm and dry without any rash. Pallor. Course Quality Measures none Orders Category Date Time Status COVID-19 Screening Questionnaire NOW Care 07/28/24 11:41 Active Decision to Admit X1 Care 07/28/24 11:41 Completed EKG (ED ONLY) *Do not use* NOW Care 07/28/24 10:33 Completed Transfuse,blood/blood products NOW Care 07/28/24 11:40 Active Consult to Gastroenterology Stat Cons 07/28/24 11:40 Ordered EKG (ED Only) Stat Exams 07/28/24 10:33 Draft CBC Stat Lab 07/28/24 10:54 Completed CMP [Comprehensive Metabolic Panel] Stat Lab 07/28/24 10:54 Completed Partial Thromboplastin Time Stat Lab 07/28/24 10:54 Completed Prothrombin Time with INR Stat Lab 07/28/24 10:54 Completed Troponin I Stat Lab 07/28/24 10:54 Completed Type and Screen Stat Lab 07/28/24 12:01 Completed prbc [Red Blood Cells] Stat Lab 07/28/24 12:01 Completed Pantoprazole/Ns 80Mg IV Premix [Protonix/NS 80mg IV Med 07/28/24 10:53 Discontinued Premix] 80 mg in 100 ml IV X1 Pantoprazole/Ns 80Mg IV Premix [Protonix/NS 80mg IV Med 07/28/24 11:08 Discontinued Premix] 80 mg in 100 ml IV X1 Vital Signs Vital signs: Vital Signs Temperature 98.0 F 07/28/24 10:15 Pulse Rate 107 H 07/28/24 10:15 Respiratory Rate 18 07/28/24 10:15 Blood Pressure 88/54 L 07/28/24 10:15 Pulse Oximetry (%) 93 L 07/28/24 10:15 Oxygen Delivery Method Room Air 07/28/24 10:15 Pulse ox is 93% on room air which is low. GI Bleed MDM Narrative [facility] Narrative:: Manasa Tobias am scribing for and in the presence of Dr. Roque. 79 year old male with a history of gastric ulcers, chronic anemia, and recent hospitalization (07/17?07/21/2024) for GI bleeding who presents with recurrent melena and associated nausea. On 07/18/2024 patient had a EGD which showed esophagitis in the lower third of the esophagus, mild inflammation characterized by erythema in the gastric antrum. On 07/19/2024 colonoscopy showed hemorrhoids on perianal exam, internal hemorrhoids that were banded. During admission patient also received two units of PRBCs. Stools had returned to normal but became dark and tarry again starting yesterday. He denies current abdominal pain, dizziness, or chest pain, but his daughter observed shortness of breath and diaphoresis with minimal exertion at home. On exam, the patient appears pale. Labs show a drop in hemoglobin from 10.3 to 8.1, suggesting ongoing or recurrent GI blood loss. Given clinical presentation and significant anemia, GI was consulted, and the patient was accepted for hospital admission. Patient data External records reviewed:: [facility] previous records (I reviewed admission from 07/17/2024 through 07/21/2024 ) Clinical information provided by:: patient and family (daughter add to hpi) Social determinants that could affect healthcare access:: none Patient has the following chronic illnesses:: gastric ulcers, recent admission 07/17-07/21/2024 for GI bleed, chronic anemia, hyperlipidemia, arthritis How is presenting disease/condition affected by chronic disease/condition?: exacerbated by Evaluation data The following diagnostics were reviewed and interpreted by me:: lab results and EKG tracing(s) (EKG 07/28/24 @ 11:10. Sinus rhythm, rate 95, left anterior fascicular block, no STEMI. ) Lab and/or radiology exams considered but not ordered:: None Interpretation Summary: As noted above Medications / Prescriptions Medications or Prescriptions considered but not ordered:: None Medication administrations:: Medication Administration History Acetaminophen (Acetaminophen 325 Mg Tablet) 650 mg PO Q6H PRN PRN Reason: Fever >101.5 Stop: 08/27/24 12:29 Acetaminophen (Acetaminophen 325 Mg Tablet) 650 mg PO Q6H PRN PRN Reason: PAIN SCALE 1-3 (mild Stop: 08/27/24 12:29 Dextrose (Dextrose 50%-Water Inj 50 Ml Syringe) 25 ml IV Q15MIN PRN PRN Reason: BG 50-70 responsive npo pt Stop: 08/27/24 16:03 Dextrose (Dextrose 50%-Water Inj 50 Ml Syringe) 50 ml IV Q15MIN PRN PRN Reason: BG <50 OR BG <70 & pt unresponsive Stop: 08/27/24 16:03 Glucagon (Glucagon Inj 1 Mg Vial) 1 mg IM Q15MIN PRN PRN Reason: BG <70, and no IV access Lactated Ringer's (Lactated Ringers) 1,000 mls @ 75 mls/hr IV .[id number] [facility] Stop: 08/27/24 12:29 Last Admin: 07/28/24 13:02 Dose: 75 mls/hr Documented By: NAIN Pantoprazole Sodium (Protonix/Ns 80mg Iv Premix) 80 mg in 100 mls @ 10 mls/hr IV Q10H [facility] Stop: 07/31/24 10:33 Last Admin: 07/28/24 12:55 Dose: Not Given Documented By: NAIN Non-Admin Reason: Duplicate Medication on eMAR Insulin Human Lispro (Insulin Lispro (Admelog) 1 Unit/0.01 Ml Unit) 0 unit SC [facility]; Protocol Stop: 08/27/24 16:59 Ondansetron HCl (Ondansetron Inj 2 Mg/Ml Inj 2 Ml) 4 mg IVP Q6H PRN; Protocol PRN Reason: NAUSEA OR VOMITING Stop: 08/27/24 12:29 Discontinued Medications Pantoprazole Sodium (Protonix/Ns 80mg Iv Premix) 80 mg in 100 mls @ 400 mls/hr IV X1 ONE Stop: 07/28/24 11:07 Last Infusion: 07/28/24 11:49 Dose: Infused Documented By: Admin: 07/28/24 11:34 Dose: 400 mls/hr Documented By: ADIA Pantoprazole Sodium (Protonix/Ns 80mg Iv Premix) 80 mg in 100 mls @ 10 mls/hr IV X1 ONE Stop: 07/28/24 21:07 Last Admin: 07/28/24 11:47 Dose: 10 mls/hr Documented By: ADIA See above Consultations Consultation(s) initiated? (list below): Yes Consultation #1 (Physician, Specialty, Details): I spoke with GI Dr. Norwood. Discussed patients PMHx, HPI, ED course, exam findings, labs results. He agrees to consult. Time: 11:33 Consultation #2 (Physician, Specialty, Details): I spoke with resident Dr. Mercedes working with Dr. Askew. Discussed patients PMHx, HPI, ED course, exam findings, labs, and radiology results. The hospitalist agree to accept the patient for admission. Time: 11:38 Diagnosis GI bleed differential diagnosis: esophageal varices, gastritis, Upper gastrointestinal hemorrhage, Lower gastrointestinal hemorrhage, melena and other (anemia) Most likely diagnosis given after review of the tests above:: Severe anemia Upper GI bleed Admission Indicated Admission indicated?: indicated Admission Request Was there a request for admission?: Yes Admission Attestation Admission request attestation: Discussed case with [] from Hospitalist service regarding admission. Discussed patients ED course, exam findings, labs, and radiology results. The Hospitalist [agrees,declines] to accept the patient for admission. Disposition Plan Disposition Plan: Admit Discharge Plan Plan Patient Disposition: Admit Acute Care w/in Hospital Problem List Clinical Impression: Severe anemia, Upper GI bleed
[2024-07-28] MEDS: RINGERS LACTATED 1000 ML 1,000 ML 75 ML IV (13:02)
--- NOTE | 2024-07-28 14:52 | PC.NURSE ---
SPOKE W/MD AT THIS TIME, FAMILY IS REQUESTING ALL POSSIBLE BLOOD WORK TO BE DONE TO FIGURE OUT WHAT IS WRONG W/PT, AND PT IS REQUESTING TO TRANSFER. PROVIDER STATES HE WILL COME SEE PT
--- NOTE | 2024-07-28 16:06 | ESHP_ITS ---
<Statement entered by Archie Mercedes MD - 07/29/24 07:25> I discussed with and supervised the internal medicine hospitalist physician involved in the care of this patient. Patient assessment and plan was discussed with entire medicine team, including my attending. I agree with the assessment and plan as documented by internal medicine hospitalist doctor. Patient care was discussed with my attending physician Dr. Azar Mercedes, PGY-2 Documentation for date of: 07/28/24 HPI History of Present Illness History of present illness: This is a 70-year-old male PMHx of gastric ulcers, chronic anemia, HLD, arthritis, presenting to the ED with 1 day of dizziness, and dark tarry stools that occurred on the morning of admission. Reports an episode of soft, nonbloody diarrhea last night which has resolved since. He has been on iron supplements which he has been taking daily, however this morning he noted his stool to be darker than he has previously been. Also reported feeling dizzy when getting up from a seated position that started this morning. Denied headaches, fever, generalized weakness, visual changes, syncope or presyncope, LOC, chest pain, shortness of breath, cough, abdominal pain, N/V/D/C, dysuria, hematuria, urinary urgency or frequency. He was admitted 07/17 to 07/21/2024 for acute GI bleed requiring transfusions. Endoscopy that showed esophagitis and gastritis, and a large hiatal hernia but no source of active bleed. Colonoscopy showed rectal hemorrhoids, internal hemorrhoids which were banded. On discharge, Hgb was 10.3 and stable. He was discharged on PROTONIX which he states he has been taking since his PCP stopped it. However, he states he continued taking his ferrous citrate as prescribed. He was referred for capsule endoscopy which he hasn't completed. ED COURSE: * Afebrile, BP 88/54, HR 107, satting 93% on room air. * CBC remarkable for Hgb 8.1, PLT 258, no leukocytosis. * Normal coag study. * Panel significant for BUN 51, CR 0.7, GLUCOSE 121, corrected calcium 7.9, Trope was negative, LFTs WNL. * EKG shows sinus rhythm, no acute ST changes. GI was consulted who recommended fluids, 2 units PRBCs, n.p.o., repeat endoscopy later today. PMHx: As above. PSHx: Bilateral knee replacement, appendectomy, throat surgery (unknown) MEDS: FERROUS citrate 210 mg daily. ALLERGIES: NKA FHx: Leukemia and several family members. SH: Denies alcohol, tobacco, or drug use. Retired, lives with daughter and . Exam Vital Signs Temp Pulse Resp BP Pulse Ox O2 Del Method 99 F 82 17 92/74 97 Room Air 07/28/24 15:56 07/28/24 15:56 07/28/24 15:56 07/28/24 15:56 07/28/24 15:56 07/28/24 10:15 Narrative Exam GENERAL * Normal appearing elderly male, NAD. HEENT * NCAT.?WILLARD. Oral mucosa is moist. Patent Nares NECK * Supple, nontender, no thyromegaly, no meningismus, no JVD, no step offs CHEST * RRR, no m/g/r * CTAB, no w/r/r. Symmetrical chest rise. No intercostal subcostal retraction * Atraumatic, nontender, no crepitus, symmetrical expansion. ABDOMEN * Soft, flat, nontender. No guarding/rebound tenderness/masses. * Bowel sounds presents EXTREMITIES * No edema/cyanosis.? SKIN * Warm and dry, no jaundice/rashes. NEUROMUSCULAR * No lumbar or midline, no CVA, no paraspinal muscle spasm or tenderness. * Moves all 4 extremities well, with full ROM and good CSM. * ISAAC x4, CN II-XII grossly intact. * No focal neurologic deficits. PSYCHIATRY * Normal mood and affect, cooperative, no SI or HI or hallucinations. Results: Labs 07/28/24 10:54 07/28/24 10:54 Labs: Short CBC 07/28/24 Range/Units 10:54 WBC 8.4 (3.8-10.6) Thou/mm3 Hgb 8.1 L (13.5-16.0) g/dL Hct 25.2 L (41.0-53.0) % Plt Count 258 (140-440) Thou/mm3 BMP 07/28/24 10:54 Sodium 141 Potassium 4.2 Chloride 111 H Carbon Dioxide 18.8 L BUN 51 H Creatinine 0.7 Glucose 121 H Calcium 7.5 L Cardiac Enzymes 07/28/24 Range/Units 10:54 Troponin I < 0.002 (0.0-0.045) ng/mL Liver Function 07/28/24 Range/Units 10:54 Total Bilirubin 0.2 L (0.3-1.2) mg/dL AST 21 (0-34) U/L ALT 19 (10-49) U/L Alkaline Phosphatase 67 (46-116) U/L Albumin 3.5 (3.4-4.8) gm/dL Quality Measures Quality Measures VTE prophylaxis Advance care planning discussed with:: patient Medications Home Medications and Allergies Home Medications ?Medication ?Instructions ?Recorded ?Confirmed ?Type diclofenac sodium 1 % topical gel 2 g topical QDAY PRN pain (scale 07/17/24 07/24/24 History score 1-3) Allergies Allergy/AdvReac Type Severity Reaction Status Date / Time naproxen Allergy Severe Hives Verified 07/28/24 10:11 Visit Medications Acetaminophen (Acetaminophen 325 Mg Tablet) 650 mg PO Q6H PRN PRN Reason: Fever >101.5 Stop: 08/27/24 12:29 Acetaminophen (Acetaminophen 325 Mg Tablet) 650 mg PO Q6H PRN PRN Reason: PAIN SCALE 1-3 (mild Stop: 08/27/24 12:29 Dextrose (Dextrose 50%-Water Inj 50 Ml Syringe) 25 ml IV Q15MIN PRN PRN Reason: BG 50-70 responsive npo pt Stop: 08/27/24 16:03 Dextrose (Dextrose 50%-Water Inj 50 Ml Syringe) 50 ml IV Q15MIN PRN PRN Reason: BG <50 OR BG <70 & pt unresponsive Stop: 08/27/24 16:03 Glucagon (Glucagon Inj 1 Mg Vial) 1 mg IM Q15MIN PRN PRN Reason: BG <70, and no IV access Lactated Ringer's (Lactated Ringers) 1,000 mls @ 75 mls/hr IV .[id number] [facility] Stop: 08/27/24 12:29 Last Admin: 07/28/24 13:02 Dose: 75 mls/hr Pantoprazole Sodium (Protonix/Ns 80mg Iv Premix) 80 mg in 100 mls @ 10 mls/hr IV Q10H [facility] Stop: 07/31/24 10:33 Last Admin: 07/28/24 12:55 Dose: Not Given Insulin Human Lispro (Insulin Lispro (Admelog) 1 Unit/0.01 Ml Unit) 0 unit SC [facility]; Protocol Stop: 08/27/24 16:59 Ondansetron HCl (Ondansetron Inj 2 Mg/Ml Inj 2 Ml) 4 mg IVP Q6H PRN; Protocol PRN Reason: NAUSEA OR VOMITING Stop: 08/27/24 12:29 Discontinued Medications Pantoprazole Sodium (Protonix/Ns 80mg Iv Premix) 80 mg in 100 mls @ 400 mls/hr IV X1 ONE Stop: 07/28/24 11:07 Last Infusion: 07/28/24 11:49 Dose: Infused Pantoprazole Sodium (Protonix/Ns 80mg Iv Premix) 80 mg in 100 mls @ 10 mls/hr IV X1 ONE Stop: 07/28/24 21:07 Last Admin: 07/28/24 11:47 Dose: 10 mls/hr Assessment & Plan Plan This is a 70-year-old male PMHx of gastric ulcers, chronic anemia, HLD, arthritis, presenting to the ED with 1 day of dizziness, and dark tarry stools that occurred on the morning of admission. #Blood loss Anemia 2/2 to GIB #Hx of GIB Presenting with dark tarry stool and dizziness x 1 day. Had an episode of soft stool the day prior, however denies fever or other GI symptoms. Otherwise tolerating oral intake well, having regular bowel movements. Recently admitted 07/17/24 for GI bleed requiring transfusions. Endoscopy and colonoscopy done showed esophagitis and gastritis as well as internal hemorrhoids which were banded. He was discharged on PROTONIX which patient currently not taking. He was recommended pill endoscopy which he hasn't completed. He was discharged with Hgb 10.3 and found to have Hgb 8.1 during this admission. GI consulted, who recommended IVF and 2 units PRBCs which have been ordered. Continue n.p.o. for planned endoscopy with GI later today. ? Continue PROTONIX GGT ? Continue n.p.o. for endoscopy later ? Posttransfusion H&H Hypotension 2/2 hypovolemia Tachycardia 2/2 hypovolemia Admission BP 88/54, HR 107, likely in setting anemia. Vitals improved after IVF and PRBC as above. ? Telemetry Hypocalcemia Corrected calcium 7.9. ? Carbonate 60 mg daily ? Daily labs Health maintenance Diet: NPO GI prophylaxis: PROTONIX DVT prophylaxis: SCD Antibiotics: Not indicated CODE STATUS: Full code Disposition: Pending EGD with GI. Case was discussed with attending physician and senior resident. Brooklynn Mcguire DO PGYI Attending Provider Attestation/Addendum I have discussed and was present for the essential components of the history, physical examination, diagnosis, and treatment plan with the resident. I agree with the patient's care as documented by the resident and amended herein by me. Vish Askew DO. Although this document has been carefully reviewed, there may still be some phonetic and other typographical errors. These errors are purely grammatical due to imperfections in the software program and should not be construed in any way to compromise the substance of the patient's medical care during this visit.
--- NOTE | 2024-07-28 16:09 | PC.NURSE ---
Nimo Quintana-Daughter in law [phone]
--- NOTE | 2024-07-28 19:57 | PC.NURSE ---
Pt arrived to room 366 via gurney transferred self to bed with assistance of cane and staff, spouse at bedside, oriented to room call light within reach.
--- NOTE | 2024-07-28 20:06 | PD.IMCONS ---
HPI Data of Consult Requesting Physician: Nabor Askew DO Primary Care Provider: Irasema Olmstead PA-C Consult Narrative Reason for consult: Melena with drop in hemoglobin hematocrit History of present illness: 79 years old male evaluated at request of the ER physician Patient presented there with 2-day history of melanotic stools having 3 stools today His discharge hemoglobin and hematocrit on 07/21/2024 was 10.3 and 29.9 And today in the ER his hemoglobin hematocrit was 8.1 and 25.2 During his previous admission he underwent on 07/18/2024 upper endoscopy which showed gastritis and esophagitis and a large hiatal hernia Colonoscopy on 07/19/2024 showed large internal hemorrhoids which were banded patient did very well and had brown stools since discharge from the hospital up until today cc:: cc: Nabor Askew DO Review of Systems Review of Systems Systems Reviewed: All systems reviewed, normal except as documented Past Medical History Surgical History OTHER SURGICAL HX: As in the history of present illness Meds Home Medications and Allergies Home Medications ?Medication ?Instructions ?Recorded ?Confirmed ?Type diclofenac sodium 1 % topical gel 2 g topical QDAY PRN pain (scale 07/17/24 07/24/24 History score 1-3) Allergies Allergy/AdvReac Type Severity Reaction Status Date / Time naproxen Allergy Severe Hives Verified 07/28/24 10:11 Exam Vital Signs Temp Pulse Resp BP Pulse Ox O2 Del Method 98.6 F 83 16 97/69 100 Room Air 07/28/24 19:41 07/28/24 19:41 07/28/24 19:41 07/28/24 19:41 07/28/24 16:28 07/28/24 18:00 Constitutional Comments: Alert oriented Routine Respiratory Exam Comments: Normal to auscultation Routine Abdominal Exam Comments: Soft nontender Results Labs 07/28/24 10:54 07/28/24 10:54 Labs: Short CBC 07/28/24 Range/Units 10:54 WBC 8.4 (3.8-10.6) Thou/mm3 Hgb 8.1 L (13.5-16.0) g/dL Hct 25.2 L (41.0-53.0) % Plt Count 258 (140-440) Thou/mm3 BMP 07/28/24 10:54 Sodium 141 Potassium 4.2 Chloride 111 H Carbon Dioxide 18.8 L BUN 51 H Creatinine 0.7 Glucose 121 H Calcium 7.5 L Cardiac Enzymes 07/28/24 Range/Units 10:54 Troponin I < 0.002 (0.0-0.045) ng/mL Liver Function 07/28/24 Range/Units 10:54 Total Bilirubin 0.2 L (0.3-1.2) mg/dL AST 21 (0-34) U/L ALT 19 (10-49) U/L Alkaline Phosphatase 67 (46-116) U/L Albumin 3.5 (3.4-4.8) gm/dL Assessment and Plan Additional Assessment & Plan Additional Plan: # GI bleeding in the upper GI source of bleeding or small bowel Upon discharge patient was recommended to have a capsule endoscopy at a tertiary center Nonetheless patient needs an upper endoscopy to make sure there is no upper GI bleed ?If negative will definitely need capsule endoscopy Consent obtained for fiberoptic with possible biopsy possible therapeutic intervention under intravenous moderate sedation
--- NOTE | 2024-07-28 20:15 | PC.NURSE ---
Unable to verify home medications, pt/ just state iron pill cholesterol pill unaware at this time of names/dosages, discussed with family if medication bottles or list can be brought pt informed daughter where at.
--- NOTE | 2024-07-28 20:30 | PC.NURSE ---
Pt daughter at bedside, wanting to know what the plan is right now for father, informed daughter/pt that plan currently is to run IVF and IV protonix and await for consult with Dr. Norwood. Daughter stating that she did not know if they wanted to transfer pt to [facility] or not or what to do and what is the process of transferring. At this point discussed with daughter that transfer would be up to the physicians that are caring for pt and that if they determine the need to transfer then transfer nurse would reach out to facilities to see if they can accept, but need accepting physician, bed availability and sometimes financial clearance depending on insurance. Verbalized understanding, informed daughter to wait until Dr. Norwood comes in to see pt to discuss plan.
--- NOTE | 2024-07-28 20:45 | PC.NURSE ---
Dr. Norwood at bedside discussing plan of care with patient, daughter and , plan for EGD to evaluate for any bleeding and if no bleed possibly to try to transfer for capsule endoscopy. MD answered all questions and family verbailzed understanding, pt to be on clear liquids until 0900 then NPO after
[2024-07-28] MEDS: CALCIUM CARBONATE 600 MG TABLET PO (21:12)
--- NOTE | 2024-07-28 21:15 | PC.NURSE ---
Pt transferred to room 350 r/t tv not working in previous room, all belongings taken with pt.
[2024-07-28 21:20] LABS: Hematocrit 31.3 % (41.0-53.0); Hemoglobin 10.5 g/dL (13.5-16.0)
[2024-07-29] VITALS (18 sets, daily range): BP systolic 84–137; BP diastolic 55–83; PULSE 62–104; RESP 12–99; TEMP 36.2–36.9; O2SAT 95–100
[2024-07-29] MEDS: RINGERS LACTATED 1000 ML 1,000 ML 75 ML IV ×2 (00:17→15:30)
[2024-07-29] MEDS: PANTOPRAZOLE/NS 80MG IV PREMIX 80 MG/100 ML BAG 10 MG IV ×3 (00:18→18:14)
[2024-07-29 05:33] LABS: Basophils % (Auto) 1 % (0-2.5); Eosinophils # (Auto) 0.1 Thou/mm3 (0.0-0.5); Eosinophils % (Auto) 3 % (0-10); Hematocrit 29.5 % (41.0-53.0); Hemoglobin 9.8 g/dL (13.5-16.0); Immature Granulocytes % (Auto) 1 % (0-0); Immature Granulocytes Auto 0.04 Thou/mm3 (0.00-0.00); Lymphocytes # (Auto) 1.6 Thou/mm3 (1.0-4.8); Lymphocytes % (Auto) 32 % (10-50); Mean Corpuscular HGB Conc 33.2 g/dl (31.0-37.0); Mean Corpuscular Hemoglobin 29.6 pg (25.0-35.0); Mean Corpuscular Volume 89 fL (80-100); Monocytes # (Auto) 0.5 Thou/mm3 (0.0-0.8); Monocytes % (Auto) 10 % (0-12); Neutrophils # (Auto) 2.7 Thou/mm3 (1.8-7.7); Neutrophils % (Auto) 54 % (37-80); Nucleated Red Blood Cell % 0 /100 WBC (0); Platelet Count 188 Thou/mm3 (140-440); RDW Standard Deviation 55.8 fL (35.1-43.9); Red Blood Count 3.31 Miln/mm3 (4.50-5.90)
[2024-07-29 06:05] LABS: Anion Gap 10 (7-16); BUN/Creatinine Ratio 33 Ratio (12-20); Blood Urea Nitrogen 23 mg/dL (9-23); Calcium 7.9 mg/dL (8.3-10.6); Carbon Dioxide 23.3 mMol/L (20.0-31.0); Chloride 112 mMol/L (98-107); Creatinine (Component) 0.7 mg/dL (0.6-1.3); Estimated Creatinine Clearance 68.4 mL/min (>60); Glucose 96 mg/dL (74-106); Osmolality,Calculated 292 (275-295); Potassium 4.4 mMol/L (3.4-5.1); Sodium 145 mMol/L (136-145); eGFR > 60 See Note
[2024-07-29] MEDS: CALCIUM CARBONATE 600 MG TABLET PO (08:48)
--- NOTE | 2024-07-29 09:34 | PC.SS ---
Initial assessment: patient is a 79 year old male admitted for GI bleed. Patient is Khmer speaking. Patient lives at home with spouse and family. Confirmed demographic information. Patient requires some assistance with ADL's. Patient recently received rollator walker on recent admission. Patient PCP is Irasema Olmstead. Patient plans to return home upon discharge, family able to transport the patient home. No current needs identified. D/c plan: Home Next of kin: daughterLeda
--- NOTE | 2024-07-29 13:10 | ESPR_ITS ---
<Statement entered by Archie Mercedes MD - 07/30/24 07:19> I discussed with and supervised the financial services intern physician involved in the care of this patient. Patient assessment and plan was discussed with entire medicine team, including my attending. I agree with the assessment and plan as documented by financial services intern doctor. Patient care was discussed with my attending physician Dr. Azar Mercedes, PGY-2 Documentation for date of: 07/29/24 Subjective Subjective Interval history: Patient is seen and examined at bedside. No acute overnight events. Denies further episodes of blackish discoloration of stool Patient is scheduled for endoscopy later in the day and was kept on n.p.o. as per Dr. Norwood's recommendations Physical examination remains unremarkable. Vitals are stable. Labs showed hemoglobin 9.8 Will continue pantoprazole for now Exam Vital Signs Temp Pulse Resp BP Pulse Ox O2 Del Method 97.4 F 70 18 119/63 98 Room Air 07/29/24 12:00 07/29/24 12:00 07/29/24 12:00 07/29/24 12:00 07/29/24 12:07/29/24 12:00 Narrative Exam General: Awake. HEENT: Normocephalic, atraumatic, mucous membranes moist. Heart: Regular rate and rhythm, no murmurs. Lungs: Clear to auscultation with no wheezing or crackles. Abdomen: Soft, nondistended, nontender, positive bowel sounds. ?No guarding or rebound tenderness. Neurologic: Alert and oriented x3, no gross neurological deficit, and patient able to move all 4 extremities. Extremities: No edema. Skin: No rash or ecchymoses. Objective Labs 07/30/24 06:48 07/30/24 06:48 Labs: Laboratory Results - last 24 hr 07/28/24 07/28/24 07/29/24 12:01 21:10 05:10 WBC 5.0 D RBC 3.31 L Hgb 10.5 L D 9.8 L Hct 31.3 L 29.5 L MCV 89 MCH 29.6 MCHC 33.2 RDW Std Deviation 55.8 H Plt Count 188 D Neut % (Auto) 54 Lymph % (Auto) 32 Kenedy % (Auto) 10 Eos % (Auto) 3 Baso % (Auto) 1 Neut # (Auto) 2.7 Lymph # (Auto) 1.6 Kenedy # (Auto) 0.5 Eos # (Auto) 0.1 Baso # (Auto) 0.0 Immature Gran # (Auto) 0.04 H Absolute Nucleated RBC 0.00 Immature Gran % 1 H Nucleated RBC % 0 Sodium 145 Potassium 4.4 Chloride 112 H Carbon Dioxide 23.3 Anion Gap 10 BUN 23 Creatinine 0.7 Estim Creat Clear Calc 68.4 eGFR > 60 BUN/Creatinine Ratio 33 H Glucose 96 Calculated Osmolality 292 Calcium 7.9 L Blood Type A Positive Antibody Screen NEGATIVE Crossmatch See Detail Blood Bank Wristband ID Yes Quality Measures Quality Measures VTE prophylaxis Advance care planning discussed with:: patient Assessment & Plan Assessment Current Active Medications: Generic Name Dose Route Start Last Admin Trade Name Freq PRN Reason Stop Dose Admin Acetaminophen 650 mg 07/28/24 12:30 Acetaminophen 325 Mg Tablet PO 08/27/24 12:29 Q6H PRN Fever >101.5 Acetaminophen 650 mg 07/28/24 12:30 Acetaminophen 325 Mg Tablet PO 08/27/24 12:29 Q6H PRN PAIN SCALE 1-3 (mild Calcium Carbonate 600 mg 07/28/24 17:15 07/29/24 08:48 Calcium Carbonate 600 Mg Tablet PO 08/27/24 17:14 600 mg QDAY DALJIT Administration Lactated Ringer's 1,000 mls @ 75 mls/hr 07/28/24 12:30 07/29/24 00:17 Lactated Ringers IV 08/27/24 12:29 75 mls/hr .[id number] DALJIT Administration Pantoprazole Sodium 80 mg in 100 mls @ 10 mls/hr 07/28/24 12:34 07/29/24 08:49 Protonix/Ns 80mg Iv Premix IV 07/31/24 10:33 10 mls/hr Q10H DALJIT Administration Ondansetron HCl 4 mg 07/28/24 12:30 Ondansetron Inj 2 Mg/Ml Inj 2 Ml IVP 08/27/24 12:29 Q6H PRN NAUSEA OR VOMITING Protocol Plan This is a 70-year-old male PMHx of gastric ulcers, chronic anemia, HLD, arthritis, presenting to the ED with 1 day of dizziness, and dark tarry stools that occurred on the morning of admission. #Blood loss Anemia 2/2 to GIB #Hx of UGIB Presenting with dark tarry stool and dizziness x 1 day. Had an episode of soft stool the day prior, however denies fever or other GI symptoms. Recently admitted 07/17/24 for GI bleed requiring transfusions. Endoscopy and colonoscopy done showed esophagitis and gastritis as well as internal hemorrhoids which were banded. He was discharged on PROTONIX which patient currently not taking. He was recommended pill endoscopy which he hasn't completed. GI consulted, who recommended 2 units PRBCs transfused. Plan ? Continue PROTONIX GGT ? Dr. Norwood consulted and scheduled for UGI Endoscopy later in the day. Hypotension 2/2 hypovolemia (Resolved) Tachycardia 2/2 hypovolemia (Resolved) Admission BP 88/54, HR 107, likely in setting anemia. Vitals improved after IVF and PRBC Plan ? Will continue to monitor vitals Hypocalcemia Corrected calcium 7.9. ? Carbonate 60 mg daily Health maintenance Diet: NPO GI prophylaxis: PROTONIX DVT prophylaxis: SCD Antibiotics: Not indicated CODE STATUS: Full code Disposition: Pending EGD with GI Patient plan of care was discussed with the attending physician, Dr. Askew and Senior resident Dr. Daren Reid, PGY1 Attending Provider Attestation/Addendum I have discussed and was present for the essential components of the history, physical examination, diagnosis, and treatment plan with the resident. I agree with the patient's care as documented by the resident and amended herein by me. Vish Askew DO. Although this document has been carefully reviewed, there may still be some phonetic and other typographical errors. These errors are purely grammatical due to imperfections in the software program and should not be construed in any way to compromise the substance of the patient's medical care during this visit.
--- NOTE | 2024-07-29 15:54 | PC.SS ---
Rounding note: pending Dr. Norwood recommendations.
--- NOTE | 2024-07-29 19:41 | SUR.PHASEI ---
194: Pt. wakes to name then drifts back to sleep, vitals stable, breathing unlabored, no complaint of pain or nausea, no dressing in place, no active bleed noted, report received from Sandy CAMPO.
--- NOTE | 2024-07-29 20:05 | SUR.PHASEI ---
2005: Pt. AAOx4, vitals stable, breathing unlabored, no complaint of pain or nausea, no dressing in place, no active bleed noted, report given to Evin CAMPO prior to transfer to room 350.
[2024-07-30] VITALS: BP 103/63; PULSE 64; PULSE 73; RESP 16; TEMP 36.1; O2SAT 95
[2024-07-30 04:00] VITALS: BP 106/65; PULSE 56; PULSE 64; RESP 16; TEMP 36.1; O2SAT 94
[2024-07-30] MEDS: PANTOPRAZOLE/NS 80MG IV PREMIX 80 MG/100 ML BAG 10 MG IV (05:22)
[2024-07-30] MEDS: RINGERS LACTATED 1000 ML 1,000 ML 75 ML IV (05:31)
[2024-07-30 07:05] LABS: Basophils % (Auto) 1 % (0-2.5); Eosinophils # (Auto) 0.2 Thou/mm3 (0.0-0.5); Eosinophils % (Auto) 4 % (0-10); Hematocrit 29.9 % (41.0-53.0); Hemoglobin 10.1 g/dL (13.5-16.0); Immature Granulocytes % (Auto) 0 % (0-0); Immature Granulocytes Auto 0.02 Thou/mm3 (0.00-0.00); Lymphocytes # (Auto) 1.5 Thou/mm3 (1.0-4.8); Lymphocytes % (Auto) 31 % (10-50); Mean Corpuscular HGB Conc 33.8 g/dl (31.0-37.0); Mean Corpuscular Hemoglobin 29.6 pg (25.0-35.0); Mean Corpuscular Volume 88 fL (80-100); Monocytes # (Auto) 0.4 Thou/mm3 (0.0-0.8); Monocytes % (Auto) 9 % (0-12); Neutrophils # (Auto) 2.6 Thou/mm3 (1.8-7.7); Neutrophils % (Auto) 56 % (37-80); Nucleated Red Blood Cell % 0 /100 WBC (0); Platelet Count 210 Thou/mm3 (140-440); Red Blood Count 3.41 Miln/mm3 (4.50-5.90); White Blood Count 4.7 Thou/mm3 (3.8-10.6)
[2024-07-30 07:20] LABS: Anion Gap 10 (7-16); BUN/Creatinine Ratio 19 Ratio (12-20); Blood Urea Nitrogen 13 mg/dL (9-23); Calcium 7.9 mg/dL (8.3-10.6); Carbon Dioxide 28.4 mMol/L (20.0-31.0); Chloride 106 mMol/L (98-107); Creatinine (Component) 0.7 mg/dL (0.6-1.3); Estimated Creatinine Clearance 68.4 mL/min (>60); Glucose 100 mg/dL (74-106); Osmolality,Calculated 286 (275-295); Potassium 3.9 mMol/L (3.4-5.1); Sodium 144 mMol/L (136-145); eGFR > 60 See Note
[2024-07-30 07:43] VITALS: BP 98/65; PULSE 86; RESP 16; TEMP 36.2; O2SAT 94
[2024-07-30 07:53] VITALS: PULSE 83
[2024-07-30 08:43] VITALS: PULSE 61; RESP 18; RESP 94
--- NOTE | 2024-07-30 09:29 | PC.SS ---
SS update: patient has d/c orders. D/c plan to return home, family to transport the patient home.
[2024-07-30] MEDS: CALCIUM CARBONATE 600 MG TABLET PO (09:35)
[2024-07-30] MEDS: LACTULOSE SYRUP 20 GM/30 ML UDC PO (09:35)
--- NOTE | 2024-07-30 15:35 | ESDS_ITS ---
<Statement entered by Archie Mercedes MD - 07/31/24 07:12> I discussed with and supervised the grinder set up operator internal physician involved in the care of this patient. Patient assessment and plan was discussed with entire medicine team, including my attending. I agree with the assessment and plan as documented by grinder set up operator internal doctor. Patient care was discussed with my attending physician Dr. Azar Mercedes, PGY-2 Planned Discharge Date 07/30/24 DS: Providers Provider Date of admission: 07/28/24 12:30 Primary care physician: Irasema Olmstead PA-C Admitting Provider: Nabor Askew DO Attending Provider on Admission: Nabor Askew DO Consults: 07/28/24 11:40 Consult to Gastroenterology Stat Comment: Consulting Provider: Mickie Sheth 07/29/24 08:00 Referral Infection Control Routine Comment: Reason for Infection Control Referral: Readmitted within 30 days Attending Provider on DC: Ady Reid MD Discharging Provider: Ady Reid MD DS: Diagnosis Problem List Completed Was Problem List Reviewed/Reconciled?: Yes Hospital Course Hospital Course Hospital course: A 70-year-old male PMHx of gastric ulcers, chronic anemia, HLD, arthritis, presenting to the ED with 1 day of dizziness, and dark tarry stools that occurred on the morning of admission. Patient was admitted on 07/17 to 07/21/2024 for acute GI bleed requiring transfusions. Endoscopy during that admission showed esophagitis and gastritis, and a large hiatal hernia but no source of active bleed. Colonoscopy showed rectal hemorrhoids, internal hemorrhoids which were banded. On discharge, Hgb was 10.3 and stable. He was discharged on PROTONIX which he states he has been taking since his PCP stopped it. However, he states he continued taking his ferrous citrate as prescribed. He was referred for capsule endoscopy which hasn't completed. At the time of admission, hemoglobin is 8.[address] Sheth was consulted who recommended 2 units of PRBC transfusion and repeat upper GI endoscopy was done that showed esophagitis in the lower third of the esophagus, hiatal hernia of at least 10 to 12 cm, 9 mm ulcer nonbleeding and diffuse gastritis. Dr. Sheth recommended that patient would need capsule endoscopy and surgical intervention to fix hiatal hernia. Recommended to follow-up in outpatient setting so that patient can be referred to [facility] for capsule endoscopy and surgical intervention for large gastric hiatal hernia. Patient is treated with Protonix during the hospital stay. Given Patient is discharged to home with the following medications and recommendations -Follow-up with PCP within 1 week of discharge. If you do not have appointment, please follow-up with the [facility] with Dr. Reid. Call [phone] to make an appointment. -Follow up with Dr. Sheth within 1 week of discharge for further evaluation and referral to [facility] for capsule endosscopy. Also will need surgical referral for hiatal hernia repair -Recommended to continue Pantoprazole 40mg p.o twice daily -Return to ED if symptoms persist or return Patient plan of care was discussed with the attending physician, Dr. Askew and senior resident Dr. Daren Reid, PGY1 Time Spent with Patient Time attestation: Total time spent providing and/or coordinating discharge services: Time spent: Greater than 30 minutes Exam Vital Signs Temp Pulse Resp BP Pulse Ox O2 Del Method O2 Flow Rate 97.2 F 61 18 98/65 94 L Room Air 3 07/30/24 07:43 07/30/24 08:43 07/30/24 08:43 07/30/24 07:43 07/30/24 07:43 07/30/24 07:43 07/29/24 19:34 Narrative Exam General: Awake. HEENT: Normocephalic, atraumatic, mucous membranes moist. Heart: Regular rate and rhythm, no murmurs. Lungs: Clear to auscultation with no wheezing or crackles. Abdomen: Soft, nondistended, nontender, positive bowel sounds. ?No guarding or rebound tenderness. Neurologic: Alert and oriented x3, no gross neurological deficit, and patient able to move all 4 extremities. Extremities: No edema. Skin: No rash or ecchymoses. Discharge Plan Plan Patient Disposition: HOME (Self Care) Patient condition on transfer: Stable Care Plan Goals: -Follow-up with PCP within 1 week of discharge. If you do not have appointment, please follow-up with the [facility] with Dr. Reid. Call [phone] to make an appointment. -Follow up with Dr. Sheth within 1 week of discharge for durther evaluation and referral to [facility] for capsule endosscopy. Also will need surgical referral for hiatal hernia repair -Recommended to continue Pnatoprazole 40mg p.o twice daily -Return to ED if symptoms persist or return Prescriptions/Referrals Prescriptions/Med Rec: New polyethylene glycol 3350 [Miralax] 17 gram/dose powder 4 g PO QDAY PRN (Reason: constipation) Qty: 119 0RF Rx Instructions: Take once daily as needed for constipation Continued pantoprazole 40 mg tablet,delayed release (DR/EC) 40 mg PO BID Qty: 60 0RF Rx Instructions: Take pantoprazole 40mg twice daily for 3 months diclofenac sodium 1 % gel 2 g TOPICAL QDAY PRN (Reason: pain (scale score 1-3)) Patient Comments: APPLY .5 GRAM TO AFFECTED AREA TWO TIMES PER DAY NEEDED FOR PAIN ferric citrate [Auryxia] 210 mg iron tablet 210 mg PO QDAY 30 Days Qty: 30 0RF Rx Instructions: administer with a meal Referrals: Irasema Olmstead PA-C [Primary Care Provider] - Mickie Sheth MD [Physician] - 08/05/24 (Hospital follow up on Upper Gi bleed EGD - large Hiatal hernia and 9mm Gastric Ulcer Referral to [facility] for capsule endoscopy to be done by Dr. sheth in his office) Patient/Caregiver Discharge Instructions Education Materials: Bleeding Gastrointestinal, Upper GI Endoscopy Print Language: Montenegrin Stand Alone Forms: Dimple Award Info., Patient Portal Info Letter Discharge Order Discharge Orders: Discharge (Routine); Ordered 07/30/24 Ordered By: Ady Reid Quality Discharge Quality Measures VTE prophylaxis Attestestation MD Bone I have discussed and was present for the essential components of the discharge history, physical examination, diagnosis, and discharge treatment plan with the resident. I agree with the patient's discharge care as documented by the resident and amended herein by me. Vish Askew, . The patient understood all discharge instructions, all questions were answered satisfactorily. The patient was instructed to return to the Emergency Department is symptoms worsened or persisted. EGD performed, no indications of acute bleeding hence patient will need capsule endoscopy as an outpatient as well as surgical referral for hiatal hernia repair. Patient will follow-up with Dr. Sheth within 1 week of discharge for referral to specialist at [facility] for continued workup and evaluation. Patient was stable, hemoglobin 10 point one of the discharge, patient was afebrile, tolerating p.o. intake and ambulatory at time of discharge home. All questions were answered satisfactorily with the assistance of an human performance consultant. Although this document has been carefully reviewed, there may still be some phonetic and other typographical errors. These errors are purely grammatical due to imperfections in the software program and should not be construed in any way to compromise the substance of the patient's medical care during this visit.
== END 2024-07-30 11:52 | disposition home or self-care (01) | DRG 369 ==
LOC: SERX 14:41 → SERHOLD 15:17 → S3NX 07-29 06:01
PROVIDERS: Specialist; Admitting Provider Student in an Organized Health Care Education/Training Program; Emergency Provider Emergency Medicine; PCP Physician Assistant; Referring Provider Student in an Organized Health Care Education/Training Program; Visit Provider Student in an Organized Health Care Education/Training Program
PROC: 0DJ08ZZ Inspection of Upper Intestinal Tract, Via Natural or Artificial Opening Endoscopic (ICD-10-PCS; CPT 43239; principal; 2024-07-29 19:00)
DX: K20.91 Esophagitis, unspecified with bleeding (principal); D62 Acute posthemorrhagic anemia; I95.89 Other hypotension; K44.9 Diaphragmatic hernia without obstruction or gangrene; E86.1 Hypovolemia; E83.51 Hypocalcemia; K64.8 Other hemorrhoids; E78.5 Hyperlipidemia, unspecified; K29.70 Gastritis, unspecified, without bleeding; Z87.891 Personal history of nicotine dependence; Z87.11 Personal history of peptic ulcer disease; Z88.8 Allergy status to other drugs, medicaments and biological substances
CPT/HCPCS: 36415; 36430; 80048; 80053; 84484; 85014; 85018; 85025; 85610; 85730; 86850; 86900; 86901; 86923; 87081; 93005; 93225; 99285; J1200; J2250; J3010; J3490; J7120; P9016; A9270

== ENCOUNTER → 2024-08-06 | Outpatient (CLI) | payer MEDICARE, MEDICAID, SELFPAY ==
[2024-08-06 10:39] LABS: C-Reactive Protein < 0.5 mg/dL (0.0-0.9)
[2024-08-06 12:12] LABS: Sed Rate (ESR) 31 mm/hr (0-20)
== END | disposition home or self-care (01) ==
LOC: COPL 09:33
PROVIDERS: PCP Student in an Organized Health Care Education/Training Program; Referring Provider Orthopaedic Surgery Adult Reconstructive Orthopaedic Surgery; Visit Provider Orthopaedic Surgery Adult Reconstructive Orthopaedic Surgery
DX: T84.032A Mechanical loosening of internal right knee prosthetic joint, initial encounter (principal)
CPT/HCPCS: 36415; 85652; 86140

== ENCOUNTER 2024-08-14 14:57 | Outpatient (AMB) | payer MEDICARE, MEDICAID, SELFPAY ==
--- NOTE | 2024-08-14 15:05 | ORTHONT_ITS ---
Vital signs 08/14/24 15:09 Height 1.55 m Height Method Stated Weight 64.609 kg Weight Measurement Method Standing Scale BMI 26.9 BP 110/65 Blood Pressure Source Automatic Cuff Blood Pressure Location Left Upper Arm Position Sitting Respiration 19 Pulse 66 Pulse Source Monitor Temp 98.4 F Temp Source Temporal Artery Scan Pulse Oximetry (%) 95 Oxygen Delivery Method Room Air Med/Allergies Allergies & Medications Allergies naproxen Allergy (Severe, Verified 08/14/24 15:10) Hives Medication Reconciliation pantoprazole 40 mg tablet,delayed release 40 mg PO BID #60 tabs 05/05/22 [Rx Confirmed 08/14/24] diclofenac sodium 1 % topical gel 2 g topical QDAY PRN pain (scale score 1-3) 07/17/24 [History Confirmed 08/14/24] ferric citrate 210 mg iron tablet (Auryxia) 210 mg PO QDAY 1 month #30 tabs 07/21/24 [Rx Confirmed 08/14/24] polyethylene glycol 3350 17 gram/dose oral powder (Miralax) 4 g PO QDAY PRN constipation #119 grams 07/30/24 [Rx Confirmed 08/14/24] Exam Exam Patient is in no acute distress and is cooperative with the examination today. Patient has a normal mood and affect. Breathing is nonlabored. In no respiratory distress. Bilateral extremities were evaluated and demonstrates sensation intact to light touch. Palpable pedal pulses are present. No significant edema is present. Left knee incision is clean dry intact. Range of motion 0 to 105 degrees. Knee feels stable varus valgus stress as well as AP translation. Right knee incision is clean dry intact. The knee is very loose. There is greater than 5 mm of medial and lateral translation as well as AP translation. The knee appears to be in varus deformity. X-rays of the right knee were reviewed from [facility] imaging. 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 X-rays of the right were dated 07/24/2024 from [facility] imaging. This demonstrates a loose right tibial component. There is also disruption of the posterior cortex consistent with a periprosthetic fracture. There is significant bone loss Assessment and Plan Problem List (1) Mechanical loosening of internal right knee prosthetic joint: Status: Acute Plan: Patient is a 79-year-old male with right knee loosening and osteolysis. We got a joint aspiration which is negative. We discussed with him he has a lot of medical issues which will complicate surgery especially since he cannot get surgery as he is not medically optimized. Has been transfused several times within the last month. He is getting referred to [facility] for workup of this. In addition, he has significant osteolysis and a periprosthetic fracture. His patella Also demonstrates a chronic fracture. He is actually walking which is quite remarkable given the way his x-rays look. I discussed with him that he should be using a walker as I am quite worried that he will catastrophically break his tibia given that there is a fracture already in there. We discussed with him that would recommend referral to a tertiary care center and that I would limit his weightbearing. I also would recommend using a walker. He would likely need a proximal tibial replacement but cannot get surgery given his medical health. I explained this to his daughter. I would also recommend getting a CT scan to better evaluate the fracture. We will refer him to a tertiary care center. It is quite interesting that there is no mechanism injury for this. His aspiration has been negative so far Advanced Care Planning Discussion Advance care planning discussed with:: patient Office Procedures GNS Level of Care Nursing/Assessment Patient Status: Established Patient Nursing Assessment/Reassesment: Medication Reconciliation, Update PMH in EMR and Vital Signs Coordination of Care: Complex Care and Chronic Disease 1-5, Education Complex Pt/Fam, Consent,records obtained, informed consent, Results/Orders obtained and Staff clarify orders Special Needs: Language special needs Established Patient Charge Established Patient Point Assignment: 95 Established Patient Point Charge: EP Level 3 (80-115) MA Intake Visit Data Collection New Patient or Established: Established Patient (seen at [facility] within 3 years) Seen by Clinical Staff ONLY (RN/MA): No PCP or OBGYN visit in last 3 months: Yes Hx Now: No Do You Feel Safe at Home: Yes Authorities Contacted: N/A Questionairres Past Medical History Past Medical History Have you ever been diagnosed with any of the following: Neurological Problems Seizures: No Cardiology Problems Hypercholesterolemia: Yes Congestive Heart Failure: No Respiratory Problems Chronic Obstructive Pulmonary Disease (COPD): No Smoking: No Smoking Exposure: No Stomache/Intestinal Problems Hepatitis: No Genital/Urinary Problems Renal Disease: No Musculoskeletal Problems Arthritis: Yes Endocrine Problems Diabetes Mellitus Type 1: No Diabetes Mellitus Type 2: No Blood Problems Anemia: Yes Other Problems Blood Transfusions: Yes Blood Transfusion Reaction: No Anesthesia Reactions: No MRSA: No VRSA: No Vancomycin-Resistant Enterococci: No Human Immunodeficiency Virus (HIV): No Chicken Pox: Yes Measles: No Mumps: No Rubella (B[place]udian Measles): No Pertussis: No Clostridium Difficile: No Cancer: No Surgical History Thyroidectomy: No Subjective Visit Visit for: follow up visit and knee Immunization / Flu Flu Vaccine in the Last 12 Months: No Flu Vaccine Exclusion Criteria: No Exclusion Criteria History of Present Illness Chief complaint: Right knee pain Kalin is a 79-year-old male with significant right knee pain. This has been ongoing for about 4 months. 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 He reports his knee feels loose and he uses a cane. This was done 20 years ago in [place]. He is not stable medically and is getting referred to [facility] for GI bleed. He has been transfused multiple times in the last month Personal History Red flag PMH: none Pain Pain level (0-10): 10 Pain duration: 04/2024 Pain location: groin and anterior Pain quality: electric and tingling Pain timing: night and increases with activity Associated signs & symptoms: numbness and weakness Ambulatory data Ambulatory device: walker Walking distance (minutes): 1 Treatments Number of previous injections: 0 Improvement with previous injections: No Number of Physical Therapy sessions: 0 Improvement with PT: No Improvement with NSAIDS: no Review of Systems Review of Systems: All systems negative unless otherwise noted in HPI.
[2024-08-14 15:09] VITALS: BP 110/65; PULSE 66; RESP 19; TEMP 36.9; O2SAT 95; BMI 26.9
== END 2024-08-14 15:19 | disposition home or self-care (01) ==
LOC: HODSRG 14:57
PROVIDERS: PCP Physician Assistant; Referring Provider Physician Assistant; Supervising Provider Orthopaedic Surgery Adult Reconstructive Orthopaedic Surgery; Visit Provider Orthopaedic Surgery Adult Reconstructive Orthopaedic Surgery
DX: T84.032D Mechanical loosening of internal right knee prosthetic joint, subsequent encounter (principal); M25.561 Pain in right knee; E78.00 Pure hypercholesterolemia, unspecified
CPT/HCPCS: 99213; G0463

== ENCOUNTER → 2024-09-05 | Outpatient (CLI) | payer MEDICARE, MEDICAID, SELFPAY ==
--- NOTE | 2024-09-05 16:14 | XR_ITS ---
Examination: CT right lower extremity, without contrast. 2-D sagittal reconstructions. 2-D coronal reconstructions. 3-D reconstructions. Date and time of exam:September 05, 2024 1652 hours INDICATIONS: Diagnoses primary unilateral osteoarthritis right knee, right knee pain years CTDI: vol (mGy):22.89 DLP: (mGycm):841 Technique: Multiple 1.25 mm axial sections of the right lower extremity without intravenous contrast have been obtained. 2-D sagittal and coronal reconstructions have been obtained. 3-D reconstructions have been obtained. Low dose protocols were performed. One or more of the following dose reduction techniques were used; automated exposure control, adjustment of the mA and/or KV according to patient size, use of iterative reconstruction technique. Findings: Moderate osteopenia. Moderate narrowing right and left hip joints No hip fractures or hip dislocations Total right knee arthroplasty Radiolucency is significant about the prosthetic tibial stem, coronal images 147 through 156 There is cortical bone destruction which may relate to osteomyelitis There is a large knee effusion with complex radiodensity The patella is displaced anteriorly The prosthetic femoral condyles appear grossly intact IMPRESSION: Loosening of the prosthetic tibial component of the knee arthroplasty with extensive cortical bone destruction consistent with osteomyelitis Large complex knee effusion which could be aspirated for culture and sensitivity as clinically warranted
== END | disposition home or self-care (01) ==
PROVIDERS: Referring Provider Orthopaedic Surgery Adult Reconstructive Orthopaedic Surgery; Visit Provider Orthopaedic Surgery Adult Reconstructive Orthopaedic Surgery
DX: T84.032A Mechanical loosening of internal right knee prosthetic joint, initial encounter (principal); M89.8X8 Other specified disorders of bone, other site; M25.461 Effusion, right knee
CPT/HCPCS: 73700

== ENCOUNTER 2025-02-01 17:04 | Inpatient (IN) | payer MEDICARE, MEDICAID, SELFPAY ==
[2025-02-01] VITALS (11 sets, daily range): BP systolic 82–110; BP diastolic 50–77; PULSE 82–130; RESP 18–98; TEMP 36.4–37.4; O2SAT 96–99; BMI 29.2
--- NOTE | 2025-02-01 17:47 | EKG_ITS ---
[facility] Test Date: 2025-02-01 Pat Name: TRISTIN Alvaradopartment: Room: - Gender: Male Director Of Marketing Analytics: : 1945 Requested By: South Saunders Order Number: [id number] Reading MD: South Saunders Measurements Intervals [place] Rate: 124 P: 75 [place]: 193 QRS: -68 QRSD: 89 T: 39 QT: 285 QTc: 410 Interpretive Statements SINUS TACHYCARDIA PATTERN CONSISTENT WITH PULMONARY DISEASE LEFT ANTERIOR FASCICULAR BLOCK [QRS AXIS <= -45, QR IN I, RS IN II] Compared to ECG 07/28/2024 11:10:18 Sinus rhythm no longer present /store/S0/[id number].pdf
--- NOTE | 2025-02-01 17:48 | PD.EDRME ---
Rapid Medical Screening Exam RME Arrival date/time: 02/01/25 17:04 79-year-old male with a history of an upper GI bleed, Flannery's esophagus, presents to the emergency room with a chief complaint of weakness, black tarry stools x 3 days I have greeted and performed a focused initial assessment of this patient. A comprehensive ED assessment and evaluation of the patient, analysis of all test results, and completion of the medical decision making process will be conducted by additional ED providers. Chief Complaint: Abdominal Pain Vital signs reviewed by provider: Yes Exam: Patient is hypotensive Patient has clear bilateral lung sounds. Patient has a soft nontender abdomen Clinical Impression: Anemia/upper GI bleed
--- NOTE | 2025-02-01 18:32 | PC.NURSE ---
Pt. here from home to room 5, pt.'s spouse and daughter are bedside. Pt. states he was having abdominal pain last night and he noticed his stool was dark last night. Pt. states at this time he is dizzy. Daughter states pt. is a patient with Dr. Norwood and has previously had a GI bleed. Daughter states pt. was also transfused before because of a GI bleed.
[2025-02-01 18:37] LABS: Basophils # (Auto) 0.1 Thou/mm3 (0.0-0.2); Basophils % (Auto) 1 % (0-2.5); Eosinophils # (Auto) 0.0 Thou/mm3 (0.0-0.5); Eosinophils % (Auto) 0 % (0-10); Hematocrit 33.1 % (41.0-53.0); Hemoglobin 11.2 g/dL (13.5-16.0); Immature Granulocytes Auto 0.09 Thou/mm3 (0.00-0.00); Lymphocytes # (Auto) 1.5 Thou/mm3 (1.0-4.8); Lymphocytes % (Auto) 11 % (10-50); Mean Corpuscular HGB Conc 33.8 g/dl (31.0-37.0); Mean Corpuscular Hemoglobin 31.8 pg (25.0-35.0); Mean Corpuscular Volume 94 fL (80-100); Monocytes # (Auto) 0.9 Thou/mm3 (0.0-0.8); Monocytes % (Auto) 7 % (0-12); Neutrophils # (Auto) 10.6 Thou/mm3 (1.8-7.7); Neutrophils % (Auto) 80 % (37-80); Nucleated Red Blood Cell # 0.00 Thou/mm3 (0.00-0.00); Nucleated Red Blood Cell % 0 /100 WBC (0); Platelet Count 222 Thou/mm3 (140-440); RDW Standard Deviation 41.7 fL (35.1-43.9); Red Blood Count 3.52 Miln/mm3 (4.50-5.90); White Blood Count 13.2 Thou/mm3 (3.8-10.6)
[2025-02-01 18:55] LABS: Alanine Aminotransferase 17 U/L (10-49); Albumin, Serum 4.1 gm/dL (3.4-4.8); Albumin/Globulin Ratio 1.8 (1.2-2.2); Alkaline Phosphatase 79 U/L (46-116); Anion Gap 13 (7-16); Aspartate Amino Transferase 19 U/L (0-34); BUN/Creatinine Ratio 74 Ratio (12-20); Bilirubin,Total 0.3 mg/dL (0.3-1.2); Blood Urea Nitrogen 52 mg/dL (9-23); Calcium 8.8 mg/dL (8.3-10.6); Calcium (Corrected) 8.8 mg/dL (8.5-10.1); Carbon Dioxide 21.0 mMol/L (20.0-31.0); Chloride 105 mMol/L (98-107); Creatinine (Component) 0.7 mg/dL (0.6-1.3); Estimated Creatinine Clearance 63.7 mL/min (>60); Globulin 2.3 gm/dL (2.3-3.5); Glucose 130 mg/dL (74-106); Osmolality,Calculated 293 (275-295); Potassium 4.0 mMol/L (3.4-5.1); Sodium 139 mMol/L (136-145); Total Protein 6.4 gm/dL (5.7-8.2); Troponin I < 0.020 ng/mL (0.0-0.045); eGFR > 60 See Note
[2025-02-01 18:56] LABS: INR 1.0 (0.9-1.3); Partial Thromboplastin Time 20.0 Seconds (22.0-36.0); Prothrombin Time 10.9 Seconds (9.0-12.2)
--- NOTE | 2025-02-01 18:56 | PC.NURSE ---
I, Ursula Mohr RN accidentally charted under [facility] CARD BOXER, a nurses note.
[2025-02-01 18:59] LABS: B-Type Natriuretic Peptide < 20 pg/mL (0-100)
--- NOTE | 2025-02-01 19:00 | EDNOTE_ITS ---
ED Abdominal Pain RME/HPI General Chief Complaint: Abdominal Pain Stated complaint: ABD PAIN, NAUSEA Arrival date/time: 02/01/25 17:04 RME / HPI RME / HPI narrative: 02/01/25 17:04 79-year-old male with a history of an upper GI bleed, Flannery's esophagus, presents to the emergency room with a chief complaint of weakness, black tarry stools x 3 days I have greeted and performed a focused initial assessment of this patient. A comprehensive ED assessment and evaluation of the patient, analysis of all test results, and completion of the medical decision making process will be conducted by additional ED providers. Dr. Huitron?s Main ED Evaluation: 79yo male presenting with epigastric pain x 2 days with noted black tarry stools, lightheadedness/dizziness, but denied near syncope. Patient with previous endosc gastric ulcers/gastritis in addition to noted internal hemorrhoids on colonoscopy in 05/2024. Patient has undergone capsular endoscopy without known source of GI hemorrhage. PMH includes GI hemorrhage requiring blood transfusions, no history of DM, HTN, or known CAD. PSH includes hiatal and inguinal hernia surgery. Prior smoker, alcohol consumption, although none for many years. Denies illicit drug use. Related Data Home Medications ?Medication ?Instructions ?Recorded ?Confirmed diclofenac sodium 1 % topical gel 2 g topical QDAY PRN pain (scale 07/17/24 08/14/24 score 1-3) Previous Rx's ?Medication ?Instructions ?Recorded pantoprazole 40 mg tablet,delayed 40 mg PO BID #60 tab s 05/05/22 release polyethylene glycol 3350 17 4 g PO QDAY PRN constipati on #119 07/30/24 gram/dose oral powder (Miralax) grams Allergies Allergy/AdvReac Type Severity Reaction Status Date / Time naproxen Allergy Severe Hives Verified 02/01/25 17:11 Review of Systems Review of Systems Systems Reviewed: All systems reviewed, normal except as documented Past Medical History Past Medical History NEUROLOGIC: Negative Neurological Disorders or Seizures CARDIAC: Positive Cardiac Disorders and Hypercholesterolemia; Negative Congestive Heart Failure RESPIRATORY: Negative Chronic Obstructive Pulmonary Disease (COPD), Smoking or Smoking Exposure GASTROINTESTINAL: Negative Gastrointestinal Disorders or Hepatitis GENITOURINARY: Negative Genitourinary Disorders or Renal Disease MUSCULOSKELETAL: Positive Musculoskeletal Disorders and Arthritis ENDOCRINE: Negative Endocrine Disorders, Diabetes Mellitus Type 1 or Diabetes Mellitus Type 2 HEMATOLOGIC: Positive Blood Disorders and Anemia OTHER HISTORY: Positive Blood Transfusions and Chicken Pox; Negative Autoimmune Disease, Blood Transfusion Reaction, Anesthesia Reactions, MRSA, VRSA, Vancomycin-Resistant Enterococci, Human Immunodeficiency Virus (HIV), Measles, Mumps, Rubella (Bul[place]ian Measles), Pertussis, Clostridium Difficile or Cancer Surgical History SURGICAL: Positive Throat Surgery and Abdominal Surgery; Negative Cardiac Surgery, Endocrine Surgery or Thyroidectomy Social History SMOKING STATUS: Never smoker ED Exam Narrative Physical exam: GENERAL APPEARANCE: alert and oriented x 4, chronically-ill appearing, no acute distress VITALS: All vitals were reviewed and the pulse ox is 99% on room air, which is normal according to my interpretation. Notably tachycardic and hypotensive. HEENT: Normocephalic, atraumatic; pupils equal, round, reactive to light; EOMI; mucous membranes pink, moist; oropharynx clear NECK: Supple LUNGS: CTABL; no wheezes, no rales, no rhonchi HEART: Tachycardic, regular rhythm; normal S1, S2; no murmurs ABDOMEN: non distended; normal BS; soft, mild epigastric tenderness, no guar ding, no rebound; no masses, no organomegaly, no hernia BACK: no CVA tenderness RECTAL: Sliver Lap Tender present; grossly melenic, grossly hemoccult positive EXTREMITIES: atraumatic; no edema NEUROLOGIC: awake; alert and oriented x4; cranial nerves II-XII grossly intact; no focal sensory or motor deficits PSYCHIATRIC: appropriate mood and affect SKIN: warm, dry, normal color; no rashes Course Quality Measures none Orders Category Date Time Status EKG (ED ONLY) *Do not use* NOW Care 02/01/25 17:47 Completed Insert IV STAT Care 02/01/25 17:47 Active Occult Blood,Stool (Nursing) NOW Care 02/01/25 17:47 Active EKG (ED Only) Stat Exams 02/01/25 17:47 Draft B-Type Natriuretic Peptide Stat Lab 02/01/25 18:16 Completed CBC Stat Lab 02/01/25 18:16 Completed Comprehensive Metabolic Panel Stat Lab 02/01/25 18:16 Completed Partial Thromboplastin Time Stat Lab 02/01/25 18:16 Completed Prothrombin Time with INR Stat Lab 02/01/25 18:16 Completed Troponin I Stat Lab 02/01/25 18:16 Completed Type and Screen Stat Lab 02/01/25 18:16 Results Urinalysis, C/S if Indicated Stat Lab 02/01/25 19:22 Completed Pantoprazole Inj [Protonix Inj] Med 02/01/25 19:15 Discontinued 80 mg IVP X1 ONE Pantoprazole/Ns 80Mg IV Premix [Protonix/NS 80mg IV Med 02/01/25 19:15 Active Premix] 80 mg in 100 ml IV Q10H Sodium Chloride 0.9% 1000 ml [Ns] 1,000 ml Med 02/01/25 19:15 Discontinued IV 999 mls/hr Sodium Chloride 0.9% 1000 ml [Ns] 1,000 ml Med 02/01/25 20:28 Discontinued IV 999 mls/hr Vital Signs Vital signs: Vital Signs Temperature 98.2 F 02/01/25 17:40 Pulse Rate 130 H 02/01/25 17:40 Respiratory Rate 18 02/01/25 17:40 Blood Pressure 82/55 L 02/01/25 17:40 Pulse Oximetry (%) 99 02/01/25 17:40 Oxygen Delivery Method Room Air 02/01/25 17:40 Abdominal Pain MDM MDM Narrative MDM Narrative:: Scribe Attestation: 02/01/25 - Griselda Tobias am scribing for and in the presence of Dr. Huitron. 79yo male presenting with epigastric pain x 2 days with noted black tarry stools, lightheadedness/dizziness, but denied near syncope. Patient with previous endosc gastric ulcers/gastritis in addition to noted internal hemorrhoids on colonoscopy in 05/2024. Patient has undergone capsular endoscopy without known source of GI hemorrhage. Please see PE findings. Lab markers demonstrated stable Hgb 11.2, normal Plt count, no left shift or bandemia. Chemistries show normal renal function and mildly elevated blood sugar of 130. UA unremarkable.Patient placed on survey manager, IV established, and underwent fluid resuscitation to correct volume deficit. Patient began on Protonix by b olus and infusion, likely upper GI source. Hospitalist consulted for consideration of admission. Dx: acute upper GI bleed, class III hemorrhagic shock Patient data External records reviewed:: [facility] previous records (Per chart review, patient was admitted here on 07/28/24 for severe anemia.) Clinical information provided by:: patient Social determinants that could affect healthcare access:: none Patient has the following chronic illnesses:: gastric ulcers, chronic anemia, HLD, arthritis How is presenting disease/condition affected by chronic disease/condition?: uneffected by Evaluation data The following diagnostics were reviewed and interpreted by me:: lab results Lab and/or radiology exams considered but not ordered:: none Interpretation Summary: See MDM Medications / Prescriptions Medications or Prescriptions considered but not ordered:: none Medication administrations:: Medication Administration History Pantoprazole Sodium (Protonix/Ns 80mg Iv Premix) 80 mg in 100 mls @ 10 mls/hr IV Q10H [facility] Stop: 02/04/25 17:14 Last Admin: 02/01/25 19:53 Dose: 10 mls/hr Documented By: JOHNNIE Sodium Chloride (Ns) 1,000 mls @ 75 mls/hr IV .[id number] [facility] Stop: 03/03/25 21:59 Discontinued Medications Sodium Chloride (Ns) 1,000 mls @ 999 mls/hr IV .Q1H1M ONE Stop: 02/01/25 20:15 Last Infusion: 02/01/25 21:00 Dose: Infused Documented By: Admin: 02/01/25 19:54 Dose: 999 mls/hr Documented By: JOHNNIE Sodium Chloride (Ns) 1,000 mls @ 999 mls/hr IV .Q1H1M ONE Stop: 02/01/25 21:28 Last Infusion: 02/01/25 23:57 Dose: Infused Documented By: Admin: 02/01/25 20:37 Dose: 999 mls/hr Documented By: JOHNNIE Sodium Chloride (Ns) 500 mls @ 999 mls/hr IV .Q31M ONE Stop: 02/02/25 00:06 Last Admin: 02/01/25 23:44 Dose: 999 mls/hr Documented By: JOHNNIE Pantoprazole Sodium (Pantoprazole Inj 40 Mg Vial) 80 mg IVP X1 ONE Stop: 02/01/25 19:16 Last Admin: 02/01/25 19:52 Dose: 80 mg Documented By: JOHNNIE see above Consultations Consultation(s) initiated? (list below): Yes Consultation #1 (Physician, Specialty, Details): Discussed case with the resident physician, attending Dr. Valenzuela from Hospitalist service regarding admission. Discussed patients ED course, exam findings, labs, and radiology results. The Hospitalist will evaluate the patient for admission. Time: 20:29 Diagnosis Differential diagnosis abdominal pain: diverticulitis, pancreatitis and other (upper GI bleed, lower GI bleed) Most likely diagnosis given after review of the tests above:: see clinical impression below Admission Indicated Admission indicated?: indicated Admission Request Was there a request for admission?: Yes Admission Attestation Admission request attestation: Discussed case with [] from Hospitalist service regarding admission. Discussed patients ED course, exam findings, labs, and radiology results. The Hospitalist [agrees,declines] to accept the patient for admission. Disposition Plan Disposition Plan: Admit Discharge Plan Plan Patient Disposition: Admit Acute Care w/in Hospital Problem List Clinical Impression: Acute upper GI bleed
[2025-02-01 19:28] LABS: Collection Type, Urine Clean Catch
[2025-02-01] MEDS: PANTOPRAZOLE/NS 80MG IV PREMIX 80 MG/100 ML BAG 10 MG IV (19:53)
[2025-02-01] MEDS: SODIUM CHLORIDE 0.9% 1000 ML 1,000 ML 999 ML IV ×2 (19:54→20:37)
[2025-02-01 20:03] LABS: Bilirubin,Urine Negative (Negative); Blood,Urine Negative (Negative); Clarity,Urine Clear (Clear/Hazy); Color,Urine Colorless (Lt Yel-Yel); Culture Indicated,Urine Not Indicated; Glucose, Urine Negative (Negative); Ketones,Urine Trace (Negative); Leukocyte Esterase,Urine Negative (Negative); Nitrite,Urine Negative (Negative); PH,Urine 6.0 (5.0-7.0); Protein,Urine Negative (Neg - Trace); RBC,Urine 1 /hpf (0-3); Specific Gravity,Urine 1.023 (1.001-1.035); Squamous Epithelial Cell,Urine < 1 /hpf (0-5); Urobilinogen,Urine Negative mg/dL (0.0-1.0); WBC,Urine < 1 /hpf (0-5)
--- NOTE | 2025-02-01 21:53 | ESHP_ITS ---
<Statement entered by Ady Reid MD - 02/03/25 02:31> A 79-year-old male with significant past medical history of hiatal hernia, 9 mm ulcer at that site, following with [facility] presented to the hospital with chief complaints of melena since 1 day. Denies NSAID, iron supplements, illicit drug abuse. Reported that he is taking PPI in the morning. Underwent capsule endoscopy in [facility], no significant abnormality found. Vitals are stable at the time of admission except for tachycardia and mildly low SBP. Labs significant for hemoglobin 11.2. Was given total 3 L of fluid in the ED followed by maintenance fluids. Later patient noted to have hematemesis and repeat hemoglobin is 7.5, was given 2 PRBC and hemoglobin got stabilized at 10.5. Started on PPI. I have personally seen and examined the patient, agree with residents assessment and plan Patient plan of care was discussed with the attending physician, Dr. Bianca Reid, PGY2 Documentation for date of: 02/01/25 HPI History of Present Illness History of present illness: HPI: 79-year-old male past medical history of gastric ulcers, chronic anemia, HLD, and arthritis who presented to the ED the evening of 02/01/2025 with chief complaint of black tarry stools. He mentioned 3 episodes of melena starting at about 3 A.M. the day of presentation. He denied hematochezia or hematemesis. Fecal occult blood test was positive in the ED. Hemoglobin 11.2. Patient is a poor historian. Patient is Sammarinese-speaking and an special services agent supplemented with chart review was used to gather history. The patient is scheduled for hernia repair surgery at [facility] in February per his daughter. It was reported that the patient also recently had a pill endoscopy done outpatient that was negative. Patient was admitted for acute upper GI bleed. ED Course: * Significant vitals on arrival: BP 82/55, pulse 130. * Significant labs: WBC 13.2, hemoglobin 11.2, hematocrit 33.1, BUN 52, glucose 130 * Imaging: EKG showed sinus tachycardia with a rate of 124 and a QTc of 410. * ED intervention: Patient received 80 mg IV push of pantoprazole, 2 L of fluids. Type and cross was done. History: * Past medical history: As above in HPI. * Surgical history: Appendectomy in the past. * Social history: Denies alcohol tobacco or illicit drug use. Allergies: (Per chart review) * Naproxen Home Medications: * Topical diclofenac. * Pantoprazole 40 mg p.o. twice daily. * Polyethylene glycol as needed. CODE STATUS: Full code Review of Systems Review of Systems Narrative Review of Systems: Review of Systems: * General: Denies fevers, chills. * HEENT: Denies headache, congestion, or sore throat. * Cardiac: Denies chest pain or palpitations. * Pulmonary: Denies shortness of breath or cough. * GI: 3 episodes of melena the day of presentation. Denies nausea, vomiting, diarrhea, constipation, or hematochezia. * : Denies dysuria, hematuria, frequency, or urgency. * MSK: Denies pain in the extremities, joints, or myalgias. * Neuro: Denies weakness, numbness, vision changes, or speech difficulty. Exam Vital Signs Temp Pulse Resp BP Pulse Ox O2 Del Method 97.5 F 110 H 19 110/77 98 Room Air 02/01/25 21:06 02/01/25 21:06 02/01/25 21:06 02/01/25 21:18 02/01/25 21:06 02/01/25 21:06 Narrative Exam General: Anxious. Neurologic: GCS 15. Alert and oriented x3, no gross neurological deficit, and patient able to move all 4 extremities. HEENT: Normocephalic, atraumatic, mucous membranes moist. Pupils reactive to light. Heart: Tachycardic, regular rhythm, normal S1 and S2, no murmurs. Lungs: Clear to auscultation bilaterally with no wheezing or crackles. Abdomen: Soft, nondistended, nontender, positive bowel sounds. No guarding or rebound tenderness. Extremities: No edema. 2+ radial and dorsalis pedis pulses bilaterally. Skin: Warm. Dry. No rash or ecchymoses. Results: Labs 02/02/25 05:30 02/02/25 05:30 Labs: Short CBC 02/01/25 Range/Units 18:16 WBC 13.2 H (3.8-10.6) Thou/mm3 Hgb 11.2 L (13.5-16.0) g/dL Hct 33.1 L (41.0-53.0) % Plt Count 222 (140-440) Thou/mm3 BMP 02/01/25 18:16 Sodium 139 Potassium 4.0 Chloride 105 Carbon Dioxide 21.0 BUN 52 H Creatinine 0.7 Glucose 130 H Calcium 8.8 Cardiac Enzymes 02/01/25 Range/Units 18:16 Troponin I < 0.020 (0.0-0.045) ng/mL Liver Function 02/01/25 Range/Units 18:16 Total Bilirubin 0.3 (0.3-1.2) mg/dL AST 19 (0-34) U/L ALT 17 (10-49) U/L Alkaline Phosphatase 79 (46-116) U/L Albumin 4.1 (3.4-4.8) gm/dL Urine 02/01/25 Range/Units 19:22 Urine Color Colorless A (Lt Yel-Yel) Urine Clarity Clear (Clear/Hazy) Urine pH 6.0 (5.0-7.0) Ur Specific [place] 1.023 (1.001-1.035) Urine Protein Negative (Neg - Trace) Urine Glucose (UA) Negative (Negative) Quality Measures Quality Measures none Advance care planning discussed with:: patient, spouse and child Medications Home Medications and Allergies Home Medications ?Medication ?Instructions ?Recorded ?Confirmed ?Type diclofenac sodium 1 % topical gel 2 g topical QDAY PRN pain (scale 07/17/24 02/02/25 History score 1-3) acetaminophen 650 mg 650 mg PO Q8H PRN pain 02/0202/02/25 History tablet,extended release sucralfate 1 gram tablet 1 g PO QID 02/02/25 02/02/25 History Allergies Allergy/AdvReac Type Severity Reaction Status Date / Time naproxen Allergy Severe Hives Verified 02/01/25 17:11 Visit Medications Pantoprazole Sodium (Protonix/Ns 80mg Iv Premix) 80 mg in 100 mls @ 10 mls/hr IV Q10H [facility] Stop: 02/04/25 17:14 Last Admin: 02/01/25 19:53 Dose: 10 mls/hr Sodium Chloride (Ns) 1,000 mls @ 75 mls/hr IV .[id number] [facility] Stop: 03/03/25 21:59 Discontinued Medications Sodium Chloride (Ns) 1,000 mls @ 999 mls/hr IV .Q1H1M ONE Stop: 02/01/25 20:15 Last Admin: 02/01/25 19:54 Dose: 999 mls/hr Sodium Chloride (Ns) 1,000 mls @ 999 mls/hr IV .Q1H1M ONE Stop: 02/01/25 21:28 Last Admin: 02/01/25 20:37 Dose: 999 mls/hr Pantoprazole Sodium (Pantoprazole Inj 40 Mg Vial) 80 mg IVP X1 ONE Stop: 02/01/25 19:16 Last Admin: 02/01/25 19:52 Dose: 80 mg Assessment & Plan Plan Summary: 79-year-old male past medical history of gastric ulcers, chronic anemia, HLD, and arthritis who presented to the ED the evening of 02/01/2025 with chief complaint of black tarry stools. He mentioned 3 episodes of melena starting at about 3 A.M. the day of presentation. He denied hematochezia or hematemesis. Fecal occult blood test was positive in the ED. Patient was admitted for acute upper GI bleed. #Acute symptomatic upper GI bleed #Hematemesis #Melena #History of gastric ulcers #Hiatal hernia * Patient presented with 3 episodes of melena * Per the patient's daughter, the patient may have had a longer course of melena, because she mentioned that the patient has not reported when he has had problems in the past * Hematemesis of around 300cc of fresh blood in ED with MAP<60 and HR>120 * Endoscopy on 07/29/2024 showed esophagitis, 10-11 cm hiatal hernia, 9 mm nonbleeding ulcer in the hiatal hernia, diffuse gastritis * A pill endoscopy was recommended which was performed outpatient and was negative * Patient is scheduled for hiatal hernia repair surgery at [facility] in February * Hemoglobin on arrival was 11.2, has been lower in the past * Patient received 2 L fluids in the ED * Patient received 80 mg IV push pantoprazole Plan: * 2 large-bore IVs * Patient received 2L of NS boluses * Pantoprazole 80 mg scheduled every 10 hours * IV fluid maintenance at 75 mL/h * Type and cross done * Patient transfused 2 units of PRBC * N.p.o. * Avoiding NSAIDs * Avoiding chemical anticoagulation * GI consulted #Acute on chronic normocytic Anemia * Patient presented with a hemoglobin of 11.2 * MCV 94 * Upon chart review the patient has been chronically anemic * Causes may include chronic gastric ulcers versus iron deficiency versus anemia of chronic disease Plan: * Iron panel ordered * Transfuse if hemoglobin below 7 #Leukocytosis * Patient presented with a WBC of 13.2 * Patient afebrile * Patient also denies nausea vomiting or abdominal pain and his abdomen is nontender to palpation, these findings may make a viral or bacterial infection less likely and may reinforce an acute phase reaction etiology Plan: * No direct intervention at this time #Prerenal Azotemia * Patient presented with a BUN of 52, creatinine of 0.7 * Likely in setting of bleed Plan: * IV fluid maintenance at 75 mL/h #Hyperlipidemia? 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 * It was recommended that he use a walker * There was concern for catastrophic fracture of his right tibia * It was mentioned that the patient would likely need a proximal tibial replacement Plan: * No direct intervention at this time Hospital Maintenance: DVT ppx: SCDs, avoiding chemical prophylaxis in the presence of GI bleed GI ppx: Pantoprazole 80 mg every 10 hours IV Diet: N.p.o. IV lines: Peripheral IVs Code status: Full code Dispo: Telemetry monitoring floor, patient mated for upper GI bleed, fluid maintenance at 75/h, GI consulted Patient was seen and discussed with my attending physician Dr. Bianca FRANCO and my senior resident Dr. Jeanette FRANCO PGY-2. Feng Anaya DO PGY-1. Attending Provider Attestation/Addendum After examining patient and review of the clinical data patient was found to have high probability of imminent deterioration which required my direct management and intervention TOTAL CC TIME: 45 MIN TOTAL TIME: 45 Minutes of direct medical management and planning of care. I Hawa Valenzuela MD, attest that I was physically present for salvador portions of evaluation, and examined patient, labs and imagings and plan of care were discussed with IM residents team, and I agree with the findings and plans documented above.
--- NOTE | 2025-02-01 21:53 | PD.RESHP ---
Documentation for date of: 02/01/25 [facility] History of Present Illness History of present illness: HPI: 79-year-old male past medical history of gastric ulcers, chronic anemia, HLD, and arthritis who presented to the ED the evening of 02/01/2025 with chief complaint of black tarry stools. He mentioned 3 episodes of melena starting at about 3 A.M. the day of presentation. He denied hematochezia or hematemesis. Fecal occult blood test was positive in the ED. Hemoglobin 11.2. Patient is a poor historian. Patient is Somali-speaking and an interactive digital media specialist supplemented with chart review was used to gather history. The patient is scheduled for hernia repair surgery at [facility] in February per his daughter. It was reported that the patient also recently had a pill endoscopy done outpatient that was negative. Patient was admitted for acute upper GI bleed. ED Course: Significant vitals on arrival: BP 82/55, pulse 130. Significant labs: WBC 13.2, hemoglobin 11.2, hematocrit 33.1, BUN 52, glucose 130 Imaging: EKG showed sinus tachycardia with a rate of 124 and a QTc of 410. ED intervention: Patient received 80 mg IV push of pantoprazole, 2 L of fluids. Type and cross was done. History: Past medical history: As above in HPI. Surgical history: Appendectomy in the past. Social history: Denies alcohol tobacco or illicit drug use. Allergies: (Per chart review) Naproxen Home Medications: Topical diclofenac. Pantoprazole 40 mg p.o. twice daily. Polyethylene glycol as needed. CODE STATUS: Full code Review of Systems Review of Systems Narrative Review of Systems: Review of Systems: General: Denies fevers, chills. HEENT: Denies headache, congestion, or sore throat. Cardiac: Denies chest pain or palpitations. Pulmonary: Denies shortness of breath or cough. GI: 3 episodes of melena the day of presentation. Denies nausea, vomiting, diarrhea, constipation, or hematochezia. : Denies dysuria, hematuria, frequency, or urgency. MSK: Denies pain in the extremities, joints, or myalgias. Neuro: Denies weakness, numbness, vision changes, or speech difficulty. Exam Vital Signs Temp Pulse Resp BP Pulse Ox O2 Del Method 97.5 F 110 H 19 110/77 98 Room Air 02/01/25 21:06 02/01/25 21:06 02/01/25 21:06 02/01/25 21:18 02/01/25 21:06 02/01/25 21:06 Narrative Exam General: Anxious. Neurologic: GCS 15. Alert and oriented x3, no gross neurological deficit, and patient able to move all 4 extremities. HEENT: Normocephalic, atraumatic, mucous membranes moist. Pupils reactive to light. Heart: Tachycardic, regular rhythm, normal S1 and S2, no murmurs. Lungs: Clear to auscultation bilaterally with no wheezing or crackles. Abdomen: Soft, nondistended, nontender, positive bowel sounds. No guarding or rebound tenderness. Extremities: No edema. 2+ radial and dorsalis pedis pulses bilaterally. Skin: Warm. Dry. No rash or ecchymoses. Results: Labs 02/02/25 05:30 02/02/25 05:30 Labs: Short CBC 02/01/25 Range/Units 18:16 WBC 13.2 H (3.8-10.6) Thou/mm3 Hgb 11.2 L (13.5-16.0) g/dL Hct 33.1 L (41.0-53.0) % Plt Count 222 (140-440) Thou/mm3 BMP 02/01/25 18:16 Sodium 139 Potassium 4.0 Chloride 105 Carbon Dioxide 21.0 BUN 52 H Creatinine 0.7 Glucose 130 H Calcium 8.8 Cardiac Enzymes 02/01/25 Range/Units 18:16 Troponin I < 0.020 (0.0-0.045) ng/mL Liver Function 02/01/25 Range/Units 18:16 Total Bilirubin 0.3 (0.3-1.2) mg/dL AST 19 (0-34) U/L ALT 17 (10-49) U/L Alkaline Phosphatase 79 (46-116) U/L Albumin 4.1 (3.4-4.8) gm/dL Urine 02/01/25 Range/Units 19:22 Urine Color Colorless A (Lt Yel-Yel) Urine Clarity Clear (Clear/Hazy) Urine pH 6.0 (5.0-7.0) Ur Specific [place] 1.023 (1.001-1.035) Urine Protein Negative (Neg - Trace) Urine Glucose (UA) Negative (Negative) Quality Measures Quality Measures none Advance care planning discussed with:: patient, spouse and child Medications Home Medications and Allergies Home Medications ?Medication ?Instructions ?Recorded ?Confirmed ?Type diclofenac sodium 1 % topical gel 2 g topical QDAY PRN pain (scale 07/17/24 02/02/25 History score 1-3) acetaminophen 650 mg 650 mg PO Q8H PRN pain 02/02/25 02/02/25 History tablet,extended release sucralfate 1 gram tablet 1 g PO QID 02/02/25 02/02/25 History Allergies Allergy/AdvReac Type Severity Reaction Status Date / Time naproxen Allergy Severe Hives Verified 02/01/25 17:11 Visit Medications Pantoprazole Sodium (Protonix/Ns 80mg Iv Premix) 80 mg in 100 mls @ 10 mls/hr IV Q10H DALJIT Stop: 02/04/25 17:14 Last Admin: 02/01/25 19:53 Dose: 10 mls/hr Sodium Chloride (Ns) 1,000 mls @ 75 mls/hr IV .[id number] DALJIT Stop: 03/03/25 21:59 Discontinued Medications Sodium Chloride (Ns) 1,000 mls @ 999 mls/hr IV .Q1H1M ONE Stop: 02/01/25 20:15 Last Admin: 02/01/25 19:54 Dose: 999 mls/hr Sodium Chloride (Ns) 1,000 mls @ 999 mls/hr IV .Q1H1M ONE Stop: 02/01/25 21:28 Last Admin: 02/01/25 20:37 Dose: 999 mls/hr Pantoprazole Sodium (Pantoprazole Inj 40 Mg Vial) 80 mg IVP X1 ONE Stop: 02/01/25 19:16 Last Admin: 02/01/25 19:52 Dose: 80 mg Assessment & Plan Plan Summary: 79-year-old male past medical history of gastric ulcers, chronic anemia, HLD, and arthritis who presented to the ED the evening of 02/01/2025 with chief complaint of black tarry stools. He mentioned 3 episodes of melena starting at about 3 A.M. the day of presentation. He denied hematochezia or hematemesis. Fecal occult blood test was positive in the ED. Patient was admitted for acute upper GI bleed. #Acute symptomatic upper GI bleed #Hematemesis #Melena #History of gastric ulcers #Hiatal hernia Patient presented with 3 episodes of melena Per the patient's daughter, the patient may have had a longer course of melena, because she mentioned that the patient has not reported when he has had problems in the past Hematemesis of around 300cc of fresh blood in ED with MAP<60 and HR>120 Endoscopy on 07/29/2024 showed esophagitis, 10-11 cm hiatal hernia, 9 mm nonbleeding ulcer in the hiatal hernia, diffuse gastritis A pill endoscopy was recommended which was performed outpatient and was negative Patient is scheduled for hiatal hernia repair surgery at [facility] in February Hemoglobin on arrival was 11.2, has been lower in the past Patient received 2 L fluids in the ED Patient received 80 mg IV push pantoprazole Plan: 2 large-bore IVs Patient received 2L of NS boluses Pantoprazole 80 mg scheduled every 10 hours IV fluid maintenance at 75 mL/h Type and cross done Patient transfused 2 units of PRBC N.p.o. Avoiding NSAIDs Avoiding chemical anticoagulation GI consulted #Acute on chronic normocytic Anemia Patient presented with a hemoglobin of 11.2 MCV 94 Upon chart review the patient has been chronically anemic Causes may include chronic gastric ulcers versus iron deficiency versus anemia of chronic disease Plan: Iron panel ordered Transfuse if hemoglobin below 7 #Leukocytosis Patient presented with a WBC of 13.2 Patient afebrile Patient also denies nausea vomiting or abdominal pain and his abdomen is nontender to palpation, these findings may make a viral or bacterial infection less likely and may reinforce an acute phase reaction etiology Plan: No direct intervention at this time #Prerenal Azotemia Patient presented with a BUN of 52, creatinine of 0.7 Likely in setting of bleed Plan: IV fluid maintenance at 75 mL/h #Hyperlipidemia? 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 It was recommended that he use a walker There was concern for catastrophic fracture of his right tibia It was mentioned that the patient would likely need a proximal tibial replacement Plan: No direct intervention at this time Hospital Maintenance: DVT ppx: SCDs, avoiding chemical prophylaxis in the presence of GI bleed GI ppx: Pantoprazole 80 mg every 10 hours IV Diet: N.p.o. IV lines: Peripheral IVs Code status: Full code Dispo: Telemetry monitoring floor, patient mated for upper GI bleed, fluid maintenance at 75/h, GI consulted Patient was seen and discussed with my attending physician Dr. Bianca FRANCO and my senior resident Dr. Jeanette FRANCO PGY-2. Feng Anaya DO PGY-1. Attending Provider Attestation/Addendum After examining patient and review of the clinical data patient was found to have high probability of imminent deterioration which required my direct management and intervention TOTAL CC TIME: 45 MIN TOTAL TIME: 45 Minutes of direct medical management and planning of care. I Hawa Valenzuela MD, attest that I was physically present for salvador portions of evaluation, and examined patient, labs and imagings and plan of care were discussed with IM residents team, and I agree with the findings and plans documented above.
[2025-02-01] MEDS: SODIUM CHLORIDE 0.9% 500 ML 500 ML 999 ML IV (23:44)
--- NOTE | 2025-02-01 23:47 | PC.NURSE ---
pts BP on a downlward trend, hr going up. Dr Tellez notified.
[2025-02-02] VITALS (21 sets, daily range): BP systolic 72–123; BP diastolic 55–91; PULSE 90–131; RESP 12–24; TEMP 36.1–37.3; O2SAT 95–100; BMI 28.6; BMI 28.8
[2025-02-02 00:15] LABS: Hematocrit 22.0 % (41.0-53.0)
[2025-02-02 00:23] LABS: Hemoglobin 7.5 g/dL (13.5-16.0)
--- NOTE | 2025-02-02 00:59 | PC.NURSE ---
pt assisted up to BSC. had black tary formed BM. pt then began vomiting dark red blood.
[2025-02-02 01:04] LABS: Basophils # (Auto) 0.0 Thou/mm3 (0.0-0.2); Basophils % (Auto) 1 % (0-2.5); Eosinophils # (Auto) 0.0 Thou/mm3 (0.0-0.5); Eosinophils % (Auto) 0 % (0-10); Hematocrit 21.9 % (41.0-53.0); Immature Granulocytes Auto 0.05 Thou/mm3 (0.00-0.00); Lymphocytes # (Auto) 1.9 Thou/mm3 (1.0-4.8); Lymphocytes % (Auto) 22 % (10-50); Mean Corpuscular HGB Conc 34.2 g/dl (31.0-37.0); Mean Corpuscular Hemoglobin 32.3 pg (25.0-35.0); Mean Corpuscular Volume 94 fL (80-100); Monocytes # (Auto) 0.7 Thou/mm3 (0.0-0.8); Monocytes % (Auto) 8 % (0-12); Neutrophils # (Auto) 5.9 Thou/mm3 (1.8-7.7); Neutrophils % (Auto) 69 % (37-80); Nucleated Red Blood Cell # 0.00 Thou/mm3 (0.00-0.00); Nucleated Red Blood Cell % 0 /100 WBC (0); Platelet Count 163 Thou/mm3 (140-440); RDW Standard Deviation 41.3 fL (35.1-43.9); Red Blood Count 2.32 Miln/mm3 (4.50-5.90); White Blood Count 8.6 Thou/mm3 (3.8-10.6)
[2025-02-02 01:08] LABS: Hemoglobin 7.5 g/dL (13.5-16.0)
--- NOTE | 2025-02-02 01:08 | PC.NURSE ---
drs are at bedside now.
--- NOTE | 2025-02-02 01:14 | XR_ITS ---
Examination: Abdomen sonogram, Limited Date and time of exam: February 02, 2025, 0127 hours INDICATIONS: Diagnosis cirrhosis, abdominal pain today Technique: Real-time kaiser scale transabdominal sonographic images of the upper abdomen obtained. Findings: Cholelithiasis, gallbladder wall is thickened 0.5 cm Common bile duct 0.4 cm Pancreas obscured by bowel gas Liver 16.5 cm 15 mm cyst lobular contour fatty infiltration Normal hepatopetal portal venous flow Patent IVC IMPRESSION: Cholelithiasis, stone in the gallbladder neck, abnormal thickening of the gallbladder wall, clinical correlation advised, consider MRCP follow-up CT scan abdomen pelvis post intravenous contrast follow-up would best assess for esophageal and perigastric varices
--- NOTE | 2025-02-02 01:30 | PC.NURSE ---
pt resting quietly. Ultraxound in progress.
--- NOTE | 2025-02-02 02:23 | PC.NURSE ---
pt resting quietly. family at bedside. first unit of blood in progress now.
--- NOTE | 2025-02-02 02:50 | PRELIM_ITS ---
Ultrasound liver. February 02, 2025 at 0127 hours Clinical history: For cirrhosis and varices, rule out. Comparison: No prior study is available for comparison. Findings: The liver is borderline enlarged (measures 16.5 cm) with subtle nodular contour and heterogeneous attenuation. There is a 1.5 x 1.4 x 1.4 cm ill-defined cystic lesion with septation in the left lobe of the liver, which may represent a complex cystic. The main portal vein measures 1 cm and demonstrates hepatopetal blood flow. No portal varices are seen. There is no intrahepatic biliary ductal dilatation. The visualized hepatic veins and inferior vena cava are patent. The gallbladder is distended and demonstrates a 7 mm calculus at the neck region. There is gallbladder wall edema measuring 5 mm. No pericholecystic fluid. The common bile duct is within normal limits measuring 4 mm. The right kidney is unremarkable to the extent visualized. The pancreas is obscured by bowel gas artifact. No free fluid is seen. Impression: 1. Borderline enlarged liver (measures 16.5 cm) with subtle nodular contour and heterogeneous attenuation, suspicious for chronic liver parenchymal disease. 2. Impacted calculus at the gallbladder neck with possible acute cholecystitis. Suggest clinical correlation and further evaluation with HIDA scan. 3. Mildly complex cyst in the left lobe of the liver. 4. Other findings as described above. Suggest clinical correlation and follow up accordingly. Report Electronically Signed By: Madi Uribe 02/02/2025 2:49:31 AM [EST]
[2025-02-02] MEDS: PANTOPRAZOLE/NS 80MG IV PREMIX 80 MG/100 ML BAG 10 MG IV ×2 (04:36→11:30)
[2025-02-02] MEDS: SODIUM CHLORIDE 0.9% 1000 ML 1,000 ML 75 ML IV (04:36)
[2025-02-02 06:06] LABS: Basophils # (Auto) 0.1 Thou/mm3 (0.0-0.2); Basophils % (Auto) 1 % (0-2.5); Eosinophils # (Auto) 0.0 Thou/mm3 (0.0-0.5); Eosinophils % (Auto) 0 % (0-10); Hematocrit 29.9 % (41.0-53.0); Hemoglobin 10.4 g/dL (13.5-16.0); Immature Granulocytes Auto 0.07 Thou/mm3 (0.00-0.00); Lymphocytes # (Auto) 2.2 Thou/mm3 (1.0-4.8); Lymphocytes % (Auto) 21 % (10-50); Mean Corpuscular HGB Conc 34.8 g/dl (31.0-37.0); Mean Corpuscular Hemoglobin 30.9 pg (25.0-35.0); Mean Corpuscular Volume 89 fL (80-100); Monocytes # (Auto) 0.8 Thou/mm3 (0.0-0.8); Monocytes % (Auto) 8 % (0-12); Neutrophils # (Auto) 7.0 Thou/mm3 (1.8-7.7); Neutrophils % (Auto) 69 % (37-80); Nucleated Red Blood Cell # 0.00 Thou/mm3 (0.00-0.00); Nucleated Red Blood Cell % 0 /100 WBC (0); Platelet Count 153 Thou/mm3 (140-440); RDW Standard Deviation 43.5 fL (35.1-43.9); Red Blood Count 3.37 Miln/mm3 (4.50-5.90); White Blood Count 10.1 Thou/mm3 (3.8-10.6)
[2025-02-02 07:17] LABS: Alanine Aminotransferase 13 U/L (10-49); Albumin, Serum 3.3 gm/dL (3.4-4.8); Albumin/Globulin Ratio 1.8 (1.2-2.2); Alkaline Phosphatase 58 U/L (46-116); Anion Gap 9 (7-16); Aspartate Amino Transferase 18 U/L (0-34); BUN/Creatinine Ratio 87 Ratio (12-20); Bilirubin,Total 0.7 mg/dL (0.3-1.2); Blood Urea Nitrogen 52 mg/dL (9-23); Calcium 7.8 mg/dL (8.3-10.6); Calcium (Corrected) 8.4 mg/dL (8.5-10.1); Carbon Dioxide 21.2 mMol/L (20.0-31.0); Cardiac Risk Estimate 5.4 RATIO (4.0-6.7); Chloride 114 mMol/L (98-107); Cholesterol 108 mg/dL (132-200); Creatinine (Component) 0.6 mg/dL (0.6-1.3); Estimated Creatinine Clearance 73.6 mL/min (>60); Globulin 1.8 gm/dL (2.3-3.5); Glucose 109 mg/dL (74-106); HDL Cholesterol 20 mg/dL (40-60); LDL Cholesterol,Calculated 39 mg/dL (0-130); Osmolality,Calculated 301 (275-295); Potassium 4.2 mMol/L (3.4-5.1); Sodium 144 mMol/L (136-145); Total Protein 5.1 gm/dL (5.7-8.2); Triglycerides 246 mg/dL (30-150); eGFR > 60 See Note
--- NOTE | 2025-02-02 08:08 | ESDS_ITS ---
<Statement entered by Valerie Prieto DO - 02/02/25 18:34> I, Valerie Prieto DO, attest that I was physically present for the salvador portions of the service and evaluated the patient with the resident and I reviewed and discussed the case with the resident and agree with the resident's findings and plans of care as documented above <Statement entered by Joshua Montgomery MD - 02/02/25 14:46> Note reviewed and agree with care plan as documented. Please refer to the note below for further details. Plan discussed with attending physician Dr. Ida Montgomery MD PGY-2 Internal Medicine Planned Discharge Date 02/02/25 DS: Providers Provider Date of admission: 02/01/25 21:47 Primary care physician: Irasema Olmstead PA-C Admitting Provider: Hawa Valenzuela MD Attending Provider on Admission: Hawa Valenzuela MD Consults: 02/01/25 21:49 Consult to Gastroenterology Routine Comment: UGI Bleed Consulting Provider: Mickie Norwood 02/02/25 05:11 Consult to General Surgery Stat Comment: Impacted calculus at the gallbladder neck Consulting Provider: Paulette Albrecht 02/02/25 06:24 Referral [facility] Routine Comment: Referral Registered Dietitian Routine Comment: [facility] Referral - Knowledge Deficit Routine Comment: Positive screening for knowledge deficit needs. Attending Provider on DC: Valerie Prieto DO Discharging Provider: Valerie Prieto DO DS: Diagnosis Problem List Completed Was Problem List Reviewed/Reconciled?: Yes Hospital Course Hospital Course Hospital course: 79-year-old persian speaking male with a past medical history of gastric ulcers, chronic anemia, HLD, and arthritis who presented to the ED at [facility] the evening of 02/01/2025 with chief complaint of black tarry stools. He mentioned 3 episodes of melena starting at about 3 A.M. the day of presentation. He denied hematochezia or hematemesis when he arrived to the ED initially with hgb 11.2. Patient was admitted for acute upper GI bleed.Patient was then began having hematemesis of about 300 ml and was transfused 2 units prbc's, given 2 L IV fluids and started on maintenance fluids. Patient's blood pressure at time was decreased 82/55 which improved with IV fluids and the transfused blood. The patient is scheduled for hernia repair surgery at [place] in February per his daughter. Patient had an endoscopy in July 2024 showing esophagitis, 10-11 cm hiatal hernia, 9 mm non-bleeding ulcer and diffuse gastritis. Patient has also undergone capsular endoscopy outpatient without known source of GI hemorrhage. Patient was recommended to be transferred to [place] for further management/evaluation of acute GI bleed with history of chronic gastric ulcers and hiatal hernia. Patient at this time is stable although he endorses weakness. Discharge Instructions Transfer to [place] for further management/evaluation of acute GI bleed with history of chronic gastric ulcers and hiatal hernia. Admission Diagnosis #Acute upper GI bleed #History of gastric ulcers #Acute on chronic normocytic Anemia #Leukocytosis #Prerenal Azotemia #Hyperlipidemia #Arthritis #Chronic fracture #Osteolysis Patient plan of care was discussed with the attending physician, Dr. Prieto & senior resident Dr. Lance Hickman MD PGY-1 Time Spent with Patient Time attestation: Total time spent providing and/or coordinating discharge services: Time spent: Greater than 30 minutes Exam Vital Signs Temp Pulse Resp BP Pulse Ox O2 Del Method 97.7 F 97 19 109/81 97 Room Air 02/02/25 05:53 02/02/25 05:53 02/02/25 05:53 02/02/25 05:53 02/02/25 05:53 02/02/25 05:20 Narrative Exam General: No acute distress; A&Ox3 Skin: Warm, dry, intact, no obvious rash. HENT: NCAT, EOMI/PERRL, not icteric. External ears normal. No rhinorrhea. Moist mucous membranes Cardiovascular: Regular rate and rhythm, no murmur, +S1/S2. Respiratory: Lungs CTAB GI: Soft, nontender, non-distended. No guarding or rebound tenderness. : No suprapubic tenderness. No flank tenderness bilaterally. Extremities: no edema, no cyanosis, no clubbing. Extremity pulses present Neuro: Grossly nonfocal. Moving all 4 extremities. CN not formally tested but appear grossly intact. Psychiatric: Cooperative, appropriate affect. Discharge Plan Plan Patient Disposition: Xfer Other Facility Pt Being Transferred to: [place] Care Plan Goals: Transfer to [place] for further management/evaluation of acute GI bleed with history of chronic gastric ulcers and hiatal hernia. Prescriptions/Referrals Prescriptions/Med Rec: No Action pantoprazole 40 mg tablet,delayed release (DR/EC) 40 mg PO BID Qty: 60 0RF Rx Instructions: Take pantoprazole 40mg twice daily for 3 months diclofenac sodium 1 % gel 2 g TOPICAL QDAY PRN (Reason: pain (scale score 1-3)) Patient Comments: APPLY .5 GRAM TO AFFECTED AREA TWO TIMES PER DAY NEEDED FOR PAIN polyethylene glycol 3350 [Miralax] 17 gram/dose powder 4 g PO QDAY PRN (Reason: constipation) Qty: 119 0RF Rx Instructions: Take once daily as needed for constipation acetaminophen 650 mg tablet extended release 650 mg PO Q8H PRN (Reason: pain) Patient Comments: TOME KEYONA TABLETA POR V A ORAL ERIKA VECES AL D A CUANDO SEA NECESARIO PARA EL DOLOR sucralfate 1 gram tablet 1 g PO QID Patient Comments: TOME 1 TABLETA POR V A ORAL CUATRO VECES AL D A Referrals: Irasema Olmstead PA-C [Primary Care Provider] Patient/Caregiver Discharge Instructions Print Language: Swedish Stand Alone Forms: Dimple Award Info., Patient Portal Info Letter Discharge Order Discharge Orders: Discharge (Routine); Ordered 02/02/25 Ordered By: Joshua Lucas [place] Quality Discharge Quality Measures VTE prophylaxis (SCD's i/s/o acute gi bleed)
[2025-02-02 10:52] LABS: Iron 264 mcg/dL (65-175); Percent Iron Saturation 92 % (20-55); Total Iron Binding Capacity 286 mcg/dL (250-425); Unsaturated Iron Binding 22 (225-295)
--- NOTE | 2025-02-02 11:04 | PC.CC ---
Addendum entered by Luigi Prabhakar RN 02/02/25 14:35: 1300: Called [facility] bed coor, spoke to Merary. Informed her of picker box operator ETA. 1242: Called unit, spoke to JAHAIRA Grimaldo informed her of change of picker box operator ETA. 1243: Bedside nurse Cristela and CN Donovan made aware of transfer and picker box operator time. Transfer packet w/ 1 CD and [facility] packet taken to unit and left with physical chart. 1241: received call from Arie reddy/ Tanner, Car star 7 [facility] [place] [facility] now 1340. 1218:Arie reddy/ Tanner called back stating Gautam star 7 accepted. ETA to [place] [facility] of 1323. 1210: Called [facility] for flight and weather check. [facility] unavailable. Gautam star 7 ETA of 66 min if they accept. [facility] will call back. 1201: received call from Luann with [facility] bed coor, with bed info. Pt will be going to [address] ROOM A480. Unit #[phone]. 1141: Dr. Montgomery made aware of acceptance. Addendum entered by Luigi Prabhakar RN 02/02/25 11:45: 1135: received call back from Stella reddy/ DANISHA. Pt accepted by Dr. Jose Jack to the [facility]. She stated she is waiting for financial clearance and will call back. Original Note: 1045: called [facility] TC, spoke to Stella to initiate transfer. During the call, she informed me that patient has a scheduled appt for 02/[address] Jack for the hiatal hernia. She stated she will reach out to Dr. Jack. Clinicals sent to [facility] as requested. 1000: received order for transfer request for thoracic vs gastro surgery for suspected ulcers in hiatal hernia. Pt observed to have hematemesis and melena in ED. Hgb decreased from 11 to [address] Montgomery and I discussed specific details on the request. Dr. Montgomery informed me that pt is established with [facility]. Pt's family informed him that pt has a hiatal surgery scheduled sometime in february 2025. will reach out to [facility].
--- NOTE | 2025-02-02 12:23 | ESCONSULT_ITS ---
HPI Data of Consult Requesting Physician: Hawa Valenzuela MD Primary Care Provider: Irasema Olmstead PA-C Consult Narrative Reason for consult: melena History of present illness: 79 years of male have been asked to evaluate by the internal medicine team for presentation of melanotic stools Presenting hemoglobin hematocrit 7.5 and 21.9 Patient since then has been transfused hemoglobin hematocrit 10.4 and 29.5 Patient is already evaluated earlier as an outpatient at my request by Dr. 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 Jose Jack he will be happy to accept the patient cc:: cc: Hawa Valenzuela MD Review of Systems Review of Systems Systems Reviewed: All systems reviewed, normal except as documented Meds Home Medications and Allergies Home Medications ?Medication ?Instructions ?Recorded ?Confirmed ?Type diclofenac sodium 1 % topical gel 2 g topical QDAY PRN pain (scale 07/17/24 02/02/25 History score 1-3) acetaminophen 650 mg 650 mg PO Q8H PRN pain 02/0202/02/25 History tablet,extended release sucralfate 1 gram tablet 1 g PO QID 02/02/25 02/02/25 History Allergies Allergy/AdvReac Type Severity Reaction Status Date / Time naproxen Allergy Severe Hives Verified 02/01/25 17:11 Exam Vital Signs Temp Pulse Resp BP Pulse Ox O2 Del Method O2 Flow Rate 97 F 99 16 113/82 99 Room Air 0 02/02/25 08:17 02/02/25 08:17 02/02/25 08:17 02/02/25 08:17 02/02/25 08:17 02/02/25 08:00 02/02/25 08:17 Results Labs 02/02/25 05:30 02/02/25 05:30 Labs: Short CBC 02/01/25 02/01/25 02/02/25 Range/Units 00:00 18:16 00:00 WBC 13.2 H 8.6 (3.8-10.6) Thou/mm3 Hgb 7.5 L 11.2 L D 7.5 L D (13.5-16.0) g/dL Hct 22.0 L 33.1 L D 21.9 L* D (41.0-53.0) % Plt Count 222 163 D (140-440) Thou/mm3 02/02/25 Range/Units 05:30 WBC 10.1 (3.8-10.6) Thou/mm3 Hgb 10.4 L D (13.5-16.0) g/dL Hct 29.9 L (41.0-53.0) % Plt Count 153 (140-440) Thou/mm3 BMP 02/01/25 02/02/25 18:16 05:30 Sodium 139 144 Potassium 4.0 4.2 Chloride 105 114 H Carbon Dioxide 21.0 21.2 BUN 52 H 52 H Creatinine 0.7 0.6 Glucose 130 H 109 H Calcium 8.8 7.8 L Cardiac Enzymes 02/01/25 Range/Units 18:16 Troponin I < 0.020 (0.0-0.045) ng/mL Liver Function 02/01/25 02/02/25 Range/Units 18:16 05:30 Total Bilirubin 0.3 0.7 (0.3-1.2) mg/dL AST 19 18 (0-34) U/L ALT 17 13 (10-49) U/L Alkaline Phosphatase 79 58 D (46-116) U/L Albumin 4.1 3.3 L D (3.4-4.8) gm/dL Urine 02/01/25 Range/Units 19:22 Urine Color Colorless A (Lt Yel-Yel) Urine Clarity Clear (Clear/Hazy) Urine pH 6.0 (5.0-7.0) Ur Specific [place] 1.023 (1.001-1.035) Urine Protein Negative (Neg - Trace) Urine Glucose (UA) Negative (Negative) Assessment and Plan Additional Assessment & Plan Additional Plan: # Melena # Large hiatal hernia Plan Bed has become available at [facility] I do not want to miss the bed No need for endoscopy here Transfer the patient for further evaluation management at [facility] Thank you for the opportunity to participate in the care of this patient
--- NOTE | 2025-02-02 12:51 | PC.NURSE ---
Report called at 1206 and given to Ozzy at [facility] for transfer.
--- NOTE | 2025-02-02 14:35 | PC.NURSE ---
Report hand off to flight nurse JAHAIRA Dumont at [facility] @ 0617.
== END 2025-02-02 14:40 | disposition short-term general hospital (02) | DRG 377 ==
LOC: SERX 20:31 → SERHOLD 21:58 → S2NX 02-02 04:22
PROVIDERS: Nurse Practitioner Family; Admitting Provider Student in an Organized Health Care Education/Training Program; Emergency Provider Emergency Medicine; PCP Physician Assistant; Visit Provider Student in an Organized Health Care Education/Training Program
DX: K25.4 Chronic or unspecified gastric ulcer with hemorrhage (principal); R57.8 Other shock; M84.48XA Pathological fracture, other site, initial encounter for fracture; E78.5 Hyperlipidemia, unspecified; K92.0 Hematemesis; D64.9 Anemia, unspecified; D72.829 Elevated white blood cell count, unspecified; K44.9 Diaphragmatic hernia without obstruction or gangrene; Z87.891 Personal history of nicotine dependence; K22.70 Barrett's esophagus without dysplasia; M19.90 Unspecified osteoarthritis, unspecified site
CPT/HCPCS: 36415; 76705; 80053; 80061; 81001; 83540; 83550; 83880; 84484; 85014; 85018; 85025; 85610; 85730; 86850; 86900; 86901; 86923; 86927; 93005; 96365; 96366; 96375; 99283; J2470; J3490; J7030; J7999; P9016; P9060